=== PATIENT | male | born 1940 | race Caucasian/White ===

== ENCOUNTER 2016-09-12 04:55 | Inpatient (IN) | payer OTHER, MEDICARE ==
--- NOTE | 2016-09-12 05:06 | PDOC ---
History of Present Illness - General Chief Complaint: Shortness of Breath Stated Complaint: SOB Time Seen by Provider: 09/12/16 05:03 - History of Present Illness Initial Comments: 09/12/16 05:40 This 76-year-old man with a history of COPD, pericardial effusion and sleep apnea arrives by ambulance with a one-day history of progressive shortness of breath. Patient states that earlier in the day he developed a runny nose, subjective fever and mild nonproductive cough. He denies wheezing or shortness of breath earlier in the day. After the patient went to bed tonight, he found that he became increasingly short of breath. When he found that using his home oxygen did not help his symptoms, he called EMS. Patient was given Duoneb treatment during transport which patient states improved his dyspnea The patient denies chest pain, abdominal pain, increase in lower extremity edema or leg pain.there has been no recent vomiting or diarrhea. Although the patient's medical record lists furosemide and metoprolol as medications, the patient states that he only takes his Advair on a daily basis. Patient generally lives with his son but his son is currently on vacation and the patient is alone at home. Patient denies smoking currently; he states that he "smoked a lot" in the past but quit 20 years ago Past History - Past Medical History Allergies/Adverse Reactions: Allergies Allergy/AdvReac Type Severity Reaction Status Date / Time No Known Allergies Allergy Verified 11/26/15 18:08 Home Medications: Ambulatory Orders Fluticasone/Salmeterol [Advair 250-50 Diskus] 1 each IH BID 09/12/16 Asthma: Yes COPD: Yes - Psycho/Social/Smoking Cessation Hx Anxiety: No Suicidal Ideation: No Smoking History: Current some day smoker Have you smoked in the past 12 months: Yes Number of Cigarettes Smoked Daily: 1 'Breaking Loose' booklet given: 11/26/15 Hx Alcohol Use: Yes (Social) Drug/Substance Use Hx: No Substance Use Type: None Hx Substance Use Treatment: No Review of Systems - Review of Systems Able to Perform ROS?: Yes Comments:: 12 point review of systems is negative except for what is noted in the history of present illness *Physical Exam - Physical Exam Comments: vital signs: Temp 98.3F orally, bp 115/59, HR111, O2 sat on 3l/min 96% GENERAL: The patient is awake, alert, and fully oriented HEAD: Normal with no signs of trauma. EYES: Pupils equal, round and reactive to light, extraocular movements intact, sclera anicteric, conjunctiva clear with no pallor. ENT: dry mucous membranes. Ears normal, nares patent with crusting, oropharynx clear without exudates. NECK: Normal range of motion, supple without lymphadenopathy, JVD, or masses. LUNGS: Breath sounds equal, clear to auscultation bilaterally. No wheeze/ crackles HEART: Regular rate and rhythm, normal S1 and S2 without murmur or rub. ABDOMEN: Soft/nontender/distended. BS wnl. No guarding or rebound. No hepatosplenomegaly. EXTREMITIES: Normal range of motion, 1+ edema bilateral ankles. No clubbing or cyanosis. No cords, erythema, or tenderness. NEUROLOGICAL: Cranial nerves II through XII grossly intact. Normal speech; moving all 4 extremities equally PSYCH: Normal mood, normal affect. SKIN: Warm, Dry, normal turgor, no rashes or lesions noted. ED Treatment Course - LABORATORY CBC & Chemistry Diagram: 09/12/16 05:41 09/12/16 05:41 Progress Note - Progress Note Progress Note: twelve-lead electrocardiogram is performed. This shows sinus tachycardia at 115 bpm; there are frequent PACs. Nonspecific ST/T-wave abnormalities. [place] and intervals are normal. There are no previous EKG tracings to compare to. portable chest x-ray: Limited study. Right pleural effusion and bilateral basilar markings similar to chest x-ray dated 06/19/16. Subsequent chest CT confirmed small right pleural effusion with multiple small pulmonary nodules Medical Decision Making - Medical Decision Making 09/12/16 06:31 EKG tracing performed here from 09/13/13 located:Normal sinus rhythm at 79 bpm; no ST or T-wave abnormalities present 09/12/16 06:39 Solu-Medrol 80 mg IV given patient denies shortness of breath but repeat auscultation reveals scattered expiratory wheezing. We'll administer DuoNeb treatment now. CBC notable for white blood cell count of 19,100 with predominance of neutrophils Chemistry profile shows normal electrolytes. BUN is 18 with creatinine of 1.0 Calcium is 8.1. cardiac enzymes are not elevated *DC/Admit/Observation/Transfer Diagnosis at time of Disposition: COPD with acute exacerbation - Discharge Dispostion Condition at time of disposition: Stable Admit: Yes
[2016-09-12] MEDS ORDERED: methylPREDNISolone NA SUCC 125 MG/2 ML VIAL ONE (06:02)
[2016-09-12] MEDS ORDERED: methylPREDNISolone NA SUCC 40 MG/1 ML VIAL IVPB ONE (06:02)
[2016-09-12 06:25] LABS: BASOPHIL 0.2 % (0-2.0); MCH 28.8 pg (25.7-33.7); MEAN CELL VOLUME 87.2 fl (80-96); NEUTROPHILS 90.5 % (42.8-82.8); PLATELET COUNT 240 K/MM3 (134-434); RDW 13.3 % (11.9-15.9); WHITE BLOOD COUNT 19.1 K/mm3 (4.0-10.0)
[2016-09-12 06:27] LABS: INR 1.2 (0.82-1.09); PROTHROMBIN TIME (PATIENT) 13.2 SEC (9.98-11.88)
[2016-09-12 06:37] LABS: ALBUMIN 3.8 g/dl (3.4-5.0); ANION GAP 10 (8-16); BILIRUBIN,TOTAL 0.4 mg/dL (0.2-1.0); CALCIUM 8.1 mg/dL (8.5-10.1); CO2 29 mmol/L (21-32); GLUCOSE,RANDOM 160 mg/dL (74-106); SGOT/AST 48 U/L (15-37); SGPT/ALT 71 U/L (12-78); TOT PROT 6.8 g/dl (6.4-8.2)
[2016-09-12 06:39] LABS: ALK PHOS 91 U/L (45-117)
[2016-09-12] MEDS ORDERED: ALBUTEROL SO4 2.5/IPRATROPIUM 0.5 INH SOL 3 ML VIAL.NEB. NEB ONE (06:40)
[2016-09-12 06:41] LABS: TROPONIN I < 0.02 ng/ml (0.00-0.05)
[2016-09-12] MEDS ORDERED: IPRATROPIUM BR 0.02% 0.5 MG/2.5 ML VIAL.NEB. NEB ONE (06:52)
[2016-09-12] MEDS ORDERED: ALBUTEROL SO4 0.083% IH SOL 2.5 MG/3 ML VIAL.NEB. NEB ONE (06:52)
[2016-09-12 08:02] LABS: MAGNESIUM 1.7 mg/dL (1.8-2.4)
[2016-09-12] MEDS ORDERED: MAGNESIUM SULFATE 2 GM in SODIUM CHLORIDE 100 ML IVPB ONE (08:04)
--- NOTE | 2016-09-12 08:10 | HP ---
[id number] a 76 y/o male with a past medical history of copd and pericardial effusion s/p pericardiocentesis (12/07). Patient is a poor historian, unsure of his medications or past medical diagnosis. patient reports with ongoing cough for the past week, denies any fevers. he reports developing shortness of breath last evening and worsened throughout the night and dyspnea on exertion. patient also reports swelling to lower extremities within the past month. As a result patient contacted EMS to seek evaluation in the emergency department. ER course was notable for: (1) WBC 19 (2)chest x-ray right pleural effusion noted (3) EKG, sinus tachycardia Recent Travel: none Social History: resides at home alone Smoking: quit 20 years ago, reports he smoked "alot" Alcohol: none Drugs: none Family History: non-contributory Allergies No Known Allergies Allergy (Verified 11/26/15 18:08) HOME MEDICATIONS: Medication Instructions Recorded Fluticasone/Salmeterol [Advair 1 each IH BID 09/12/16 250-50 Diskus] REVIEW OF SYSTEMS CONSTITUTIONAL: Absent: fever, chills, diaphoresis, generalized weakness, malaise, loss of appetite, weight change HEENT: Absent: rhinorrhea, nasal congestion, throat pain, throat swelling, difficulty swallowing, mouth swelling, ear pain, eye pain, visual changes CARDIOVASCULAR: Absent: chest pain, syncope, palpitations, irregular heart rate, lightheadedness , peripheral edema RESPIRATORY: Present: cough, shortness of breath, dyspnea with exertion Absent: orthopnea, wheezing, stridor, hemoptysis GASTROINTESTINAL: Absent: abdominal pain, abdominal distension, nausea, vomiting, diarrhea, constipation, melena, hematochezia GENITOURINARY: Absent: dysuria, frequency, urgency, hesitancy, hematuria, flank pain, genital pain MUSCULOSKELETAL: Present: lower extremity swelling Absent: myalgia, arthralgia, joint swelling, back pain, neck pain SKIN: Absent: rash, itching, pallor HEMATOLOGIC/IMMUNOLOGIC: Absent: easy bleeding, easy bruising, lymphadenopathy, frequent infections ENDOCRINE: Absent: unexplained weight gain, unexplained weight loss, heat intolerance, cold intolerance NEUROLOGIC: Absent: headache, focal weakness or paresthesias, dizziness, unsteady gait, seizure, mental status changes, bladder or bowel incontinence PSYCHIATRIC: Absent: anxiety, depression, suicidal or homicidal ideation, hallucinations. PHYSICAL EXAMINATION Vital Signs - 24 hr 09/12/16 09/12/16 09/12/16 05:04 05:18 06:56 Temperature 98.3 F Pulse Rate 117 H 111 H Pulse Rate [ 110 H Apical] Respiratory 28 H 24 Rate Blood Pressure 115/59 Blood Pressure 102/55 [Left Arm] O2 Sat by Pulse 96 96 99 Oximetry (%) PHYSICAL EXAM GENERAL: Awake, alert, and fully oriented, in no acute distress. HEAD: Normal with no signs of trauma. EYES: Pupils equal, round and reactive to light, extraocular movements intact, sclera anicteric, conjunctiva clear. No lid lag. EARS, NOSE, THROAT: Ears normal, nares patent, oropharynx clear without exudates. Moist mucous membranes. NECK: Normal range of motion, supple without lymphadenopathy, JVD, or masses. LUNGS: Breath sounds equal, wheeze noted to right apex and base, clear to left apex and base, diminished billaterally throughout, No wheezes, and no crackles. No accessory muscle use. HEART: Regular rate and rhythm, normal S1 and S2 without murmur, rub or gallop.+ JVD ABDOMEN: Soft, obese nontender, not distended, normoactive bowel sounds, no guarding, no rebound, no masses. No hepatomegaly or splenomegaly. MUSCULOSKELETAL: Normal range of motion at all joints. No bony deformities or tenderness. No CVA tenderness. UPPER EXTREMITIES: 2+ pulses, warm, well-perfused. No cyanosis. No clubbing. Cap refill <2 seconds. + 1 billateral lower extremity edema. LOWER EXTREMITIES: 2+ pulses, warm, well-perfused. No calf tenderness. No peripheral edema. NEUROLOGICAL: Cranial nerves II-XII intact. Normal speech. Normal gait. PSYCHIATRIC: Cooperative. Good eye contact. Appropriate mood and affect. SKIN: Warm, dry, normal turgor, no rashes or lesions noted. Laboratory Results - last 24 hr 09/12/16 09/12/16 09/12/16 05:41 05:41 05:41 WBC 19.1 H D RBC 5.02 Hgb 14.5 D Hct 43.8 MCV 87.2 MCHC 33.0 RDW 13.3 Plt Count 240 D MPV 9.0 Neutrophils % 90.5 H D Lymphocytes % 3.4 L D Monocytes % 5.9 Eosinophils % 0.0 D Basophils % 0.2 INR Sodium 140 Potassium 3.9 Chloride 101 Carbon Dioxide 29 D Anion Gap 10 BUN 18 D Creatinine 1.0 D Creat Clearance w eGFR > 60 Random Glucose 160 H D Calcium 8.1 L Magnesium Total Bilirubin 0.4 D AST 48 H D ALT 71 Alkaline Phosphatase 91 Creatine Kinase Cancelled Creatine Kinase Index CK-MB (CK-2) CK-MB (CK-2) Rel Index Troponin I Cancelled Total Protein 6.8 Albumin 3.8 D 09/12/16 09/12/16 09/12/16 05:41 05:50 05:50 WBC RBC Hgb Hct MCV MCHC RDW Plt Count MPV Neutrophils % Lymphocytes % Monocytes % Eosinophils % Basophils % INR 1.20 H Sodium Potassium Chloride Carbon Dioxide Anion Gap BUN Creatinine Creat Clearance w eGFR Random Glucose Calcium Magnesium Total Bilirubin AST ALT Alkaline Phosphatase Creatine Kinase 249 Creatine Kinase Index 1.5 CK-MB (CK-2) 3.719 H CK-MB (CK-2) Rel Index Cancelled Troponin I < 0.02 Total Protein Albumin 09/12/16 07:27 WBC RBC Hgb Hct MCV MCHC RDW Plt Count MPV Neutrophils % Lymphocytes % Monocytes % Eosinophils % Basophils % INR Sodium Potassium Chloride Carbon Dioxide Anion Gap BUN Creatinine Creat Clearance w eGFR Random Glucose Calcium Magnesium 1.7 L D Total Bilirubin AST ALT Alkaline Phosphatase Creatine Kinase Creatine Kinase Index CK-MB (CK-2) CK-MB (CK-2) Rel Index Troponin I Total Protein Albumin ASSESSMENT/PLAN: 1) pulm: copd excerbation - start solumedrol 40mg q6h with taper - start symbicort - combivent nebulizers pleural effusion - CTA of chest, right small to moderate pleural effusion, cannot rule out superimposed infiltrate - start zithromax and rocephin - appreciate pulmonary input 2) card - pmh of pericardial effusion, s/p pericardiocentesis, March 2016. - signs of fluid overload noted on exam, will hold off on lasix until results of echo obtained 3) ID: - leukocytosis noted, patient afebrile, CTA of chest reviewed, agree with ID continue Zithromax and Rocephin empirically - ID consulted and following F/E/N -low sodium diet ppx - zantac - lovenox - oob - scd - pt dispo: requires inpatient telemetry full code Problem List - Problem (1) COPD exacerbation Code(s): J44.1 - CHRONIC OBSTRUCTIVE PULMONARY DISEASE W (ACUTE) EXACERBATION (2) Pleural effusion Code(s): J90 - PLEURAL EFFUSION, NOT ELSEWHERE CLASSIFIED Visit type - Emergency Visit Emergency Visit: Yes ED Registration Date: 09/12/16 Care time: The patient presented to the Emergency Department on the above date and was hospitalized for further evaluation of their emergent condition. - New Patient This patient is new to me today: Yes Date on this admission: 09/12/16 - Critical Care Critical Care patient: No
[2016-09-12] MEDS ORDERED: MAGNESIUM SULF 50% (8.12 MEQ/2 ML-1 GM VIAL) IVPB ONE (08:30)
[2016-09-12 08:51] LABS: PH,URINE 5.5 (4.5-8); URINE APPEARANCE Cloudy; URINE BILIRUBIN 2+ (NEGATIVE); URINE BLOOD Negative (NEGATIVE); URINE COLOR YELLOW; URINE GLUCOSE (UA) Negative (NEGATIVE); URINE KETONE Negative (NEGATIVE); URINE LEUK ESTERASE Negative (NEGATIVE); URINE NITRITE Negative (NEGATIVE); URINE PROTEIN 2+ (NEGATIVE); URINE UROBILINOGEN 1.0 E.U/dl (0.2-1.0)
[2016-09-12 08:52] LABS: URINE BACTERIA FEW /hpf (NEGATIVE); URINE RBC 0-3 /hpf (0-3); URINE WBC 0-3 (3-5)
[2016-09-12] MEDS ORDERED: methylPREDNISolone NA SUCC 40 MG/1 ML VIAL ONE (09:25)
[2016-09-12] MEDS: methylPREDNISolone NA SUCC 40 MG/1 ML VIAL IVPB SCH ×3 (09:31→21:12)
--- NOTE | 2016-09-12 09:43 | PN ---
Progress Note (short form) - Note Progress Note: ID Consult dictated Exacerbation COPD Leukocytosis Possible community acquired v. atypical pneumonia RLL possible influenza Obtain flu swab, sputum c/s, penumococcal/legionella ag empiric zithromax/ ceftriaxone IV steroids/ bronchodialators
[2016-09-12] MEDS ORDERED: AZITHROMYCIN 500 MG VIAL IVPB ONE (10:06)
[2016-09-12] MEDS: CEFTRIAXONE 100 ML IVPB SCH (10:11)
[2016-09-12 10:38] LABS: ARTERIAL BLD GAS O2 SATURATION 91.7 % (90-98.9); ARTERIAL BLOOD GAS BASE EXCESS 0.1 meq/l (-2-2); ARTERIAL BLOOD GAS HCO3 26.7 meq/L (22-26); ARTERIAL BLOOD GAS PO2 69.5 mmHg (70-100)
[2016-09-12 10:39] LABS: ALLENS TEST POSITIVE; ART PUNCT SITE LEFT RADIAL; LPM/O2% 21%; TYPE OF O2 ROOM AIR
[2016-09-12 10:40] LABS: ARTERIAL BLOOD GAS pH 7.32 (7.35-7.45); PT. ON O2? NO
[2016-09-12] MEDS: AZITHROMYCIN IVPB 250 ML IVPB SCH (10:58)
--- NOTE | 2016-09-12 10:58 | EKG ---
Test Reason : Blood Pressure : / mmHG Vent. Rate : 115 BPM Atrial Rate : 115 BPM P-R Int : 116 ms QRS Dur : 082 ms QT Int : 342 ms P-R-T Axes : 084 -12 093 degrees QTc Int : 473 ms SINUS TACHYCARDIA WITH ATRIAL PREMATURE CONTRACTIONS NONSPECIFIC ST ABNORMALITY ABNORMAL ECG NO PREVIOUS ECGS AVAILABLE Confirmed by CYNDI CHAMBERLAIN, JERILYN ([id number]) on 09/12/2016 10:57:37 AM Referred By: DR SNYDER Confirmed By:JERILYN HANNA MD
--- NOTE | 2016-09-12 11:26 | CON.PULM ---
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 Patient states that earlier in the day he developed a runny nose, subjective fever and mild nonproductive cough. He denies wheezing or shortness of breath earlier in the day. After the patient went to bed tonight , he found that he became increasingly short of breath. When he found that using his home oxygen did not help his symptoms, he called EMS. Patient was given Duoneb treatment during transport which patient states improved his dyspnea The patient denies chest pain, abdominal pain, increase in lower extremity edema or leg pain.there has been no recent vomiting or diarrhea. Although the patient's medical record lists furosemide and metoprolol as medications, the patient states that he only takes his Advair on a daily basis. - History Source History Provided By: Patient, Medical Record Limitations to Obtaining History: Poor Historian - Past Medical History IMPROVEMENT LEADER: No: Alzheimer's Cardio/Vascular: Yes: Other (Pericardial effusion). No: AFIB Pulmonary: Yes: COPD. No: Cancer Gastrointestinal: No: Ascites Hepatobiliary: No: Cirrhosis Renal/: No: Renal Failure Heme/Onc: No: Anemia Infectious Disease: No: AIDS Psych: No: Addictions Musculoskeletal: Yes: Bursitis, Chronic low back pain Rheumatology: No: Fibromyalgia Endocrine: No: Diabetes Mellitus - Past Surgical History Past Surgical History: Yes: None - Alcohol/Substance Use Hx Alcohol Use: Yes (Social) History of Substance Use: reports: None - Smoking History Smoking history: Former smoker Have you smoked in the past 12 months: Yes Aproximately how many cigarettes per day: 1 - Social History ADL: Independent 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 History of Recent Travel: No Home Medications - Allergies Allergies/Adverse Reactions: Allergies Allergy/AdvReac Type Severity Reaction Status Date / Time No Known Allergies Allergy Verified 11/26/15 18:08 - Home Medications Home Medications: Ambulatory Orders Fluticasone/Salmeterol [Advair 250-50 Diskus] 1 each IH BID 09/12/16 Family Disease History - Family Disease History Family History: Unremarkable Review of Systems - Review of Systems Constitutional: denies: Fever Eyes: denies: Blurred Vision HENT: denies: Difficult Swallowing Neck: denies: Decreased ROM Cardiovascular: reports: Shortness of Breath. denies: Chest Pain Respiratory: reports: Cough, SOB on Exertion. denies: Hemoptysis, Wheezing Gastrointestinal: reports: Other (increasing abd girth) Genitourinary: reports: No Symptoms Breasts: reports: No Symptoms Reported Musculoskeletal: reports: Back Pain, Other (lower ext edema) Integumentary: reports: No Symptoms Neurological: reports: No Symptoms Endocrine: reports: No Symptoms Hematology/Lymphatic: reports: No Symptoms Physical Exam Vital Sings: Vital Signs Temperature 98.3 F 09/12/16 05:04 Pulse Rate 103 H 09/12/16 08:37 Respiratory Rate 28 H 09/12/16 08:37 Blood Pressure 113/67 09/12/16 08:37 O2 Sat by Pulse Oximetry (%) 96 09/12/16 08:37 Constitutional: Yes: Calm Eyes: Yes: EOM Intact HENT: Yes: Normocephalic Neck: Yes: Trachea Midline Cardiovascular: Yes: Regular Rate and Rhythm, S1, S2 Respiratory: Yes: Dullness (with diminished breath sounds right base) ...Clubbing: No Gastrointestinal: Yes: Normal Bowel Sounds, Abdomen, Obese Renal/: Yes: WNL Breast(s): Yes: WNL Musculoskeletal: Yes: WNL Edema: LLE: 2+, RLE: 2+ Neurological: Yes: Alert Psychiatric: Yes: Alert Labs: ABG Results ABG pH 7.32 (7.35-7.45) L D 09/12/16 09:30 ABG pCO2 at Pt Temp 53.1 mmHg (35-45) H D 09/12/16 09:30 ABG pO2 at Pt Temp 69.5 mmHg (70-100) L D 09/12/16 09:30 ABG HCO3 26.7 meq/L (22-26) H 09/12/16 09:30 ABG O2 Sat (Measured) 91.7 % (90-98.9) 09/12/16 09:30 ABG O2 Content 18.3 % vol (15-22) 09/12/16 09:30 ABG Base Excess 0.1 meq/l (-2-2) 09/12/16 09:30 rest reviewed Imaging - Results Chest X-ray: Image Reviewed Cat Scan: Image Reviewed EKG: Report Reviewed Problem List - Problems (1) COPD with acute exacerbation Code(s): J44.1 - CHRONIC OBSTRUCTIVE PULMONARY DISEASE W (ACUTE) EXACERBATION (2) Leukocytosis Code(s): D72.829 - ELEVATED WHITE BLOOD CELL COUNT, UNSPECIFIED (3) Obesity Code(s): E66.9 - OBESITY, UNSPECIFIED Qualifiers: Obesity severity: morbid (4) Pericardial effusion Code(s): I31.3 - PERICARDIAL EFFUSION (NONINFLAMMATORY) (5) Pleural effusion Code(s): J90 - PLEURAL EFFUSION, NOT ELSEWHERE CLASSIFIED Assessment/Plan FAVOR A/E COPD NO EVIDENCE TO SUGGEST PNEUMONIA MORE LIKELY URI(INITIAL INFLU SWAB --) RIGHT PLEURAL EFFUSION APPEARS CHRONIC (NO THORACENTESIS RECORDED) H/O PERICARDIAL EFFUSION IN PAST WORKUP WAS NEGATIVE AGREE WITH BRONCHODILATORS/O2 SUPPLEMENTATION/STEROIDS/ANTIBIOTICS AWAIT ECHO AND CARDIO INPUT MAY CONSIDER THORACENTESIS WILL FOLLOW Zita FAY MD
[2016-09-12 12:11] VITALS: BMI 37.5
--- NOTE | 2016-09-12 12:15 | CONS ---
DATE OF CONSULTATION: 09/12/2016 TIME OF CONSULTATION: 10:30 a.m. CONSULTATION REQUESTED BY: TONI. CHIEF COMPLAINT: Increasing shortness of breath. HISTORY OF PRESENT ILLNESS: Patient is a 76-year-old [place] gentleman with history of chronic obstructive pulmonary disease, previous history of pericardial effusion requiring pericardial window, cause of effusion apparently was not clearly determined. He was admitted with history of anuria accompanied by a cough and increasing dyspnea and prior to admission patient was experiencing severe shortness of breath and was unable to lie in bed. He denies having chest pain or discomfort either at rest or with exertion, history of both orthopnea and PND. He is unaware of having pedal edema. There is no history of palpitations, lightheadedness, dizziness, presyncope, or syncope. Denies having hypertension, diabetes mellitus, or history of a heart murmur. Patient lives alone and admits to poor dietary compliance. On questioning, he states that he is aware that he snores and has increased somnolence during the daytime accompanied by fatigue. PAST HISTORY: As mentioned in the history of present illness. SOCIAL HISTORY: He is a . Is retired. Has 2 children, a son and a daughter, who apparently are healthy. Used to be a 1-1/2-pack cigarette smoker since the age of 21 and stopped approximately 2 years ago. No history of alcohol abuse or drug use. Denies excessive use of caffeine. FAMILY HISTORY: Father in his 70s of unknown cause. Mother in her 80s apparently of an unknown cause. Had 2 brothers. One of them had emphysema. The other brother had also lung problem; causes are not known. Both of them are . ALLERGIES: None documented. MEDICATION: Prior to admission, patient says he was only on Advair. REVIEW OF SYSTEMS: Constitutional: No history of chills, fever, or night sweats. No history of unintentional weight loss. HEENT: Denies having headaches, diplopia, blurred vision. No history of epistaxis, hoarseness, tinnitus, or deafness reported. Cardiovascular: See history of present illness. No history of rheumatic fever as a child. Respiratory: See history of present illness. Cough is accompanied by clear expectoration. No history of hemoptysis or tuberculosis. Gastrointestinal: No history of nausea, vomiting, melena, or hematemesis. No history of abdominal discomfort or change in bowel habits. Neurological: Denies having lightheadedness, dizziness, syncope, or seizures. No history of focal weakness. Endocrine: No history of polyuria or polydipsia. Denies intolerance to cold or warm weather. Genitourinary: History of increased frequency and nocturia. No history of hematuria or dysuria reported. Hematological/Lymphatic: No history of anemia or lymph node enlargement. Musculoskeletal: Denies having myalgias or arthralgias. PHYSICAL EXAMINATION:General: A 76-year-old morbidly obese gentleman, was mildly dyspneic, no pallor, cyanosis, clubbing, or jaundice. Vital Signs: Weight was not recorded, blood pressure was 113/67 mmHg, pulse 103 beats per minute and regular, temperature was not available, oxygen saturation was 96% on nasal cannula at 2%. Neck: Supple. No jugular venous distention appreciated. Hepatojugular reflux was negative. Carotids were 2+. Upstrokes were normal. No bruits were heard and no thyromegaly was present. Heart: PMI was not localized. No heaves or thrills. Heart sounds were distant. No murmur or gallops were appreciated. Lungs: Fine crepitations at the right base and decreased breath sounds. Abdomen: Markedly obese, nontender, no hepatosplenomegaly was appreciated, no palpable masses were felt. Bowel sounds were heard. No bruits were appreciated. Extremities: There was 2 to 3+ pitting edema involving the right lower extremity and 1 to 2+ pitting edema involving the left lower extremity. Dorsalis pedis and posterior tibial pulses were weak. LABORATORY DATA: CBC: WBC count was 19,100 with a left shift. Hemoglobin was 14.5 g/dL. Sodium was 140, potassium 3.9, chloride 101, CO2 29 mmole/L, BUN 18, creatinine 1.0. Random glucose 160, calcium 8.1, magnesium 1.7. CK was 249. Troponin was less than 0.02. BNP was elevated at 313. CTA of the chest. Impression: Small to moderate right pleural effusion with compressive atelectatic changes in the right lung base. Cannot rule out superimposed pneumonia. There is no evidence of pulmonary embolus in the main pulmonary artery and its proximal bifurcation bilaterally. No enlarged mediastinal or hilar lymph nodes are identified. Fatty liver. ECG was not available. IMPRESSION: 1. History of chronic obstructive pulmonary disease with probable exacerbation secondary to upper respiratory tract infection. 2. Dyspnea, etiology: a. Secondary to congestive heart failure (right heart failure). b. Secondary to number 1. c. Rule out pneumonia. 3. Morbid obesity. 4. Status post pericardial effusion, status post pericardial window (November 2015). 5. Obstructive sleep apnea syndrome needs exclusion because of history of increased somnolence and easy fatigability. 6. Poor compliance. 7. Leukocytosis and left shift secondary to upper respiratory tract infection. 8. Poor compliance. RECOMMENDATIONS: 1. Echocardiogram is pending. 2. CTA report was reviewed. No pericardial effusion was reported. 3. Diuretics if echocardiogram reveals no pericardial effusion. 4. T3, T4, TSH. 5. Risk modification. 6. ECG. PROGNOSIS: Guarded. Thank you for your referral. Yours sincerely, PHU FLORES M.D. [id number]
[2016-09-12] MEDS: BUDESONIDE/FORMETEROL FUMARATE 160/4.5 mcg INHALER IH SCH ×2 (12:28→21:12)
--- NOTE | 2016-09-12 13:03 | CONS ---
DATE OF CONSULTATION: 09/12/2016 HISTORY OF PRESENT ILLNESS: The patient is a 76-year-old male with history of COPD, obstructive sleep apnea, obesity, evaluated for pneumonia. He reports worsening cough over the past 1 week. He developed increasing shortness of breath and lower extremity edema over the past 1-2 days. He presented to the emergency room where a chest x-ray showed a right pleural effusion, possible infiltrate. CT scan of the chest shows compressive atelectasis, possible infiltrate right base with a small pleural effusion. Patient reports cough productive of whitish sputum. He denies any hemoptysis. No complaints of chest pain. He denies any associated fevers or chills. Patient lives alone. He denies any ill contacts. He is a nonsmoker, has not received influenza vaccine. His last hospitalization was in November of 2015 for a cardiac tamponade. PAST MEDICAL HISTORY: Positive for COPD (he is not steroid-dependent), obstructive sleep apnea, morbid obesity, history of cardiac tamponade. PAST SURGICAL HISTORY: Status post pericardial window November of 2015; cultures of the pericardial fluid were negative. ALLERGIES: No known allergies. MEDICATIONS: Symbicort, Solu-Medrol. SOCIAL HISTORY: He lives alone, is a nonsmoker/nondrinker. SYSTEMS REVIEW: Neurologic: No loss of consciousness, seizure activity, or focal weakness. Cardiac: Negative for chest pain or palpitations. Respiratory: As per HPI. Gastrointestinal: Negative for vomiting or diarrhea. Genitourinary: Negative for urinary tract infection. LABORATORY DATA: White count 19.1, 90 neutrophils, 3 lymphocytes, 5 monocytes, hematocrit 43.8, platelet count 240. BUN 18, creatinine 1.0. Urinalysis 0-3 white cells. PHYSICAL EXAMINATION: General: He is is awake. He is slightly short of breath at rest on nasal cannula, morbidly obese. Vital signs: Temperature 98.3, blood pressure 113/67, pulse 103 and regular, respirations 26 per minute. HEENT: Sclerae anicteric. Dry mucous membranes. Heart: Heart sounds S1, S2. Lungs: Diminished breath sounds bilaterally. Abdomen: Obese, soft. No tenderness elicited. No mass, rebound, or rigidity. Extremities: 1+ edema. IMPRESSION: 1. Exacerbation of chronic obstructive pulmonary disease. 2. Leukocytosis, possible sepsis. 3. Possible community-acquired versus atypical right lower-lobe pneumonia. 4. Possible influenza. Obtain rapid flu antigen, sputum culture, urine legionella, and pneumococcal antigens, empiric Zithromax and ceftriaxone, intravenous steroids, inhaled bronchodilators. Thank you for the kind referral. JERILYN MCDUFFIE M.D. [id number]
[2016-09-12] MEDS: ALBUTEROL SO4 2.5/IPRATROPIUM 0.5 INH SOL 3 ML VIAL.NEB. NEB PRN (15:56)
[2016-09-12] MEDS ORDERED: PT OWN MED DRAWER 7, Y5N ONE (21:09)
[2016-09-13] MEDS: methylPREDNISolone NA SUCC 40 MG/1 ML VIAL IVPB SCH ×3 (03:12→17:45)
--- NOTE | 2016-09-13 08:29 | PN ---
Progress Note, Physician History of Present Illness: Awake, alert No complaints Denies chest pain/ dyspnea/cough Afebrile - Current Medication List Current Medications: Active Medications Albuterol/Ipratropium (Duoneb -) 1 amp NEB Q6H PRN PRN Reason: SHORT OF BREATH/WHEEZING Last Admin: 09/12/16 15:56 Dose: 1 amp Budesonide/Formoterol Fumarate (Symbicort 160/4.5mcg -) 1 puff IH BID [facility] Last Admin: 09/12/16 21:12 Dose: 1 puff Azithromycin (Zithromax 500mg Ivpb (Pre-Docked)) 250 mls @ 250 mls/hr IVPB Q24H [facility] Last Admin: 09/12/16 10:58 Dose: 250 mls/hr Ceftriaxone Sodium (Rocephin 2gm Ivpb (Pre-Docked)) 100 mls @ 200 mls/hr IVPB DAILY [facility] Last Admin: 09/12/16 10:11 Dose: 200 mls/hr Methylprednisolone Sodium Succinate (Solu-Medrol -) 40 mg IVPB Q6H-IV [facility] Last Admin: 09/13/16 03:12 Dose: 40 mg - Objective Vital Signs: Vital Signs Temperature 97.9 F 09/13/16 06:00 Pulse Rate 96 H 09/13/16 06:00 Respiratory Rate 19 09/13/16 06:00 Blood Pressure 118/70 09/13/16 06:00 O2 Sat by Pulse Oximetry (%) 96 09/13/16 06:04 Constitutional: Yes: Obese Cardiovascular: Yes: Regular Rate and Rhythm, S1, S2 Respiratory: Yes: CTA Bilaterally Gastrointestinal: Yes: Normal Bowel Sounds, Soft, Abdomen, Obese, Tenderness Labs: INR, PTT INR 1.20 (0.82-1.09) H 09/12/16 05:41 Assessment/Plan Exacerbation COPD Possible RLL pneumonia Possible viral syndrome Await c/s Continue empiric ceftriaxone/ zithromax
[2016-09-13] MEDS ORDERED: PT OWN MED DRAWER 7, Y5N ONE (09:46)
[2016-09-13] MEDS ORDERED: REFRIGERATED ANITBIOTICS ONE (09:50)
[2016-09-13] MEDS: CEFTRIAXONE 100 ML IVPB SCH (09:56)
[2016-09-13] MEDS: BUDESONIDE/FORMETEROL FUMARATE 160/4.5 mcg INHALER IH SCH ×2 (09:57→21:30)
[2016-09-13] MEDS: AZITHROMYCIN IVPB 250 ML IVPB SCH (09:57)
[2016-09-13 10:25] LABS: MCH 28.4 pg (25.7-33.7); MCHC 32.9 g/dl (32.0-35.9); MEAN CELL VOLUME 86.5 fl (80-96); MEAN PLT VOLUME 8.5 fl (7.5-11.1); PLATELET COUNT 249 K/MM3 (134-434); RDW 12.6 % (11.9-15.9); WHITE BLOOD COUNT 20.2 K/mm3 (4.0-10.0)
--- NOTE | 2016-09-13 11:10 | PN ---
Progress Note, Physician History of Present Illness: PULMONARY ALERT,SITTING UP IN BED,LESS DYSPNEIC,+COUGH,-CP - Current Medication List Current Medications: Active Medications Albuterol/Ipratropium (Duoneb -) 1 amp NEB Q6H PRN PRN Reason: SHORT OF BREATH/WHEEZING Last Admin: 09/12/16 15:56 Dose: 1 amp Budesonide/Formoterol Fumarate (Symbicort 160/4.5mcg -) 1 puff IH BID [facility] Last Admin: 09/13/16 09:57 Dose: 1 puff Azithromycin (Zithromax 500mg Ivpb (Pre-Docked)) 250 mls @ 250 mls/hr IVPB Q24H [facility] Last Admin: 09/13/16 09:57 Dose: 250 mls/hr Ceftriaxone Sodium (Rocephin 2gm Ivpb (Pre-Docked)) 100 mls @ 200 mls/hr IVPB DAILY [facility] Last Admin: 09/13/16 09:56 Dose: 200 mls/hr Methylprednisolone Sodium Succinate (Solu-Medrol -) 40 mg IVPB Q6H-IV [facility] Last Admin: 09/13/16 09:30 Dose: 40 mg - Objective Vital Signs: Vital Signs Temperature 97.9 F 09/13/16 06:00 Pulse Rate 96 H 09/13/16 06:00 Respiratory Rate 19 09/13/16 08:35 Blood Pressure 118/70 09/13/16 06:00 O2 Sat by Pulse Oximetry (%) 96 09/13/16 08:35 Constitutional: Yes: Well Nourished, Calm Eyes: Yes: WNL HENT: Yes: WNL Neck: Yes: WNL Cardiovascular: Yes: Regular Rate and Rhythm, S1, S2 Respiratory: Yes: Diminished Gastrointestinal: Yes: Normal Bowel Sounds, Soft Extremities: Yes: WNL Edema: No Labs: CBC, BMP 09/13/16 10:00 INR, PTT INR 1.20 (0.82-1.09) H 09/12/16 05:41 Assessment/Plan Problem List - Problems (1) COPD with acute exacerbation Code(s): J44.1 - CHRONIC OBSTRUCTIVE PULMONARY DISEASE W (ACUTE) EXACERBATION (2) Leukocytosis Code(s): D72.829 - ELEVATED WHITE BLOOD CELL COUNT, UNSPECIFIED (3) Obesity Code(s): E66.9 - OBESITY, UNSPECIFIED Qualifiers: Obesity severity: morbid (4) Pericardial effusion Code(s): I31.3 - PERICARDIAL EFFUSION (NONINFLAMMATORY) (5) Pleural effusion Code(s): J90 - PLEURAL EFFUSION, NOT ELSEWHERE CLASSIFIED Assessment/Plan COPD EXACERBATION H/O PERICARDIAL EFFUSION S/P WINDOW SMALL R PLEURAL EFFUSION PLAN INHALED BRONCHODILATORS O2 SUPPLEMENTATION STEROIDS ANTIBIOTICS PER STEVEN HOLMAN
[2016-09-13 11:11] LABS: CALCIUM 8.8 mg/dl (8.4-10.2); CREATININE 0.8 mg/dl (0.6-1.3); MAGNESIUM 2.5 mg/dL (1.8-2.4)
--- NOTE | 2016-09-13 11:24 | PN ---
Physical Exam: SUBJECTIVE: Patient seen and examined. This is a 76 year old male with a past medical history of COPD and pericardial effusion who was admitted for COPD exacerbation. He reports feeling much better than yesterday, but still with SOB when getting up and walking around. Denies chest pain, abdominal pain, N/V/D. OBJECTIVE: Vital Signs - 24 hr 3 09/12/16 09/12/16 09/12/16 11:57 14:37 17:43 Temperature 99 F 98.2 F 98.2 F Pulse Rate 80 81 88 Respiratory 22 18 22 Rate Blood Pressure 116/67 128/68 122/65 O2 Sat by Pulse Oximetry (%) 3 09/12/16 09/13/16 09/13/16 22:17 06:00 06:04 Temperature 98.2 F 97.9 F Pulse Rate 91 H 96 H Respiratory 19 19 Rate Blood Pressure 113/63 118/70 O2 Sat by Pulse 96 Oximetry (%) 3 09/13/16 08:35 Temperature Pulse Rate Respiratory 19 Rate Blood Pressure O2 Sat by Pulse 96 Oximetry (%) GENERAL: The patient is awake, alert, and fully oriented, in no acute distress. HEAD: Normal with no signs of trauma. EYES: PERRL, extraocular movements intact, sclera anicteric, conjunctiva clear. No ptosis. ENT: Ears normal, nares patent, oropharynx clear without exudates, moist mucous membranes. NECK: Trachea midline, full range of motion, supple. LUNGS: + wheezing bilaterally, diminished right base, no accessory muscle use. HEART: Regular rate and rhythm, S1, S2 without murmur, rub or gallop. ABDOMEN: Soft, nontender, nondistended, normoactive bowel sounds, no guarding, no rebound, no hepatosplenomegaly, no masses. EXTREMITIES: 2+ pulses, warm, well-perfused, tr edema B/L LE NEUROLOGICAL: Cranial nerves II through XII grossly intact. Normal speech, gait not observed. PSYCH: Normal mood, normal affect. SKIN: Warm, dry, normal turgor, no rashes or lesions noted Laboratory Results - last 24 hr 3 09/13/16 09/13/16 10:00 10:00 WBC 20.2 H D RBC 4.83 Hgb 13.7 Hct 41.8 MCV 86.5 MCHC 32.9 RDW 12.6 Plt Count 249 MPV 8.5 Neutrophils % Y Lymphocytes % Y Sodium 138 Potassium 4.9 Chloride 100 Carbon Dioxide 29 H Anion Gap 9 BUN 27 H D Creatinine 0.8 D Random Glucose 239 H D Calcium 8.8 Magnesium 2.5 H D Active Medications 3 Generic Name Dose Route Start Last Admin Trade Name Freq PRN Reason Stop Dose Admin Albuterol/Ipratropium 1 amp 09/12/16 08:33 09/12/16 15:56 Duoneb - NEB 1 amp Q6H PRN Administration SHORT OF BREATH/WHEEZING Budesonide/Formoterol Fumarate 1 puff 09/12/16 10:00 09/13/16 09:57 Symbicort 160/4.5mcg - IH 1 puff BID MAKSIM Administration Azithromycin 250 mls @ 250 mls/hr 09/12/16 10:00 09/13/16 09:57 Zithromax 500mg Ivpb (Pre-Docked) IVPB 250 mls/hr Q24H [facility] Administration Ceftriaxone Sodium 100 mls @ 200 mls/hr 09/12/16 10:00 09/13/16 09:56 Rocephin 2gm Ivpb (Pre-Docked) IVPB 200 mls/hr DAILY [facility] Administration Methylprednisolone Sodium Succinate 40 mg 09/12/16 09:00 09/13/16 09:30 Solu-Medrol - IVPB 40 mg Q6H-IV MAKSIM Administration ASSESSMENT/PLAN: 76yM with PMH COPD and pericardial effusion admitted for COPD exacerbation. COPD exacerbation - cont solumedrol; taper to q8h, BGM TID AC with Novolog SS while on solumedrol. - antibiotics ceftriaxone and zithromax as per ID - cont oxygen as needed. Cardio - h/o pericardial effusion, no evidence of tamponade on echo, but small almost circumferential echogenic area, may be remaining inflammatory debris from previous effusion. - + pleural effusion on CTA, no significant pericardial effusion on echo, will start lasix - cardiology consult appreciated. Leukocytosis - cont antibiotics as per ID DVT PPX - heparin 5000u TID FEN - defer IVF, tolerating PO - BMP pending for today. - low sodium diet as tolerated. Dispo: pt currently requires inpatient care. Visit type - Emergency Visit Emergency Visit: Yes ED Registration Date: 09/12/16 Care time: The patient presented to the Emergency Department on the above date and was hospitalized for further evaluation of their emergent condition. - New Patient This patient is new to me today: Yes Date on this admission: 09/13/16 - Critical Care Critical Care patient: No
[2016-09-13] MEDS: FUROSEMIDE 40 MG/4 ML INJECTABLE VIAL IVPUSH SCH (12:00)
[2016-09-13 12:16] LABS: PLATELET ESTIMATE NORMAL (NORMAL)
[2016-09-13] MEDS: HEPARIN NA (PORCINE) 5,000 UNITS/ML 1ML VIAL SQ SCH ×2 (13:00→21:16)
[2016-09-13] MEDS: INSULIN SLIDING SCALE (NOVOLOG) 1 VIAL SQ SCH (17:00)
[2016-09-13] MEDS ORDERED: INSULIN (NOVOLOG) ASPART 100 UNITS/ML 10ML VIAL ONE (17:36)
[2016-09-14] MEDS: methylPREDNISolone NA SUCC 40 MG/1 ML VIAL IVPB SCH ×3 (02:42→17:18)
[2016-09-14] MEDS: ALBUTEROL SO4 2.5/IPRATROPIUM 0.5 INH SOL 3 ML VIAL.NEB. NEB PRN ×2 (03:09→22:40)
[2016-09-14] MEDS: HEPARIN NA (PORCINE) 5,000 UNITS/ML 1ML VIAL SQ SCH ×3 (06:51→21:26)
[2016-09-14] MEDS: INSULIN SLIDING SCALE (NOVOLOG) 1 VIAL SQ SCH ×4 (06:52→22:17)
[2016-09-14 07:52] LABS: BASOPHIL 0.1 % (0-2.0); MCH 28.7 pg (25.7-33.7); MCHC 32.3 g/dl (32.0-35.9); MEAN CELL VOLUME 88.9 fl (80-96); MEAN PLT VOLUME 9.4 fl (7.5-11.1); PLATELET COUNT 223 K/MM3 (134-434); RDW 13.5 % (11.9-15.9); WHITE BLOOD COUNT 17.9 K/mm3 (4.0-10.0)
--- NOTE | 2016-09-14 08:01 | PN ---
Progress Note, Physician History of Present Illness: PULMONARY ALERT,OOB-CHAIR,STILLL C/O SOB,DID NOT SLEEP WELL SECONDARY TO COUGH - Current Medication List Current Medications: Active Medications Albuterol/Ipratropium (Duoneb -) 1 amp NEB Q6H PRN PRN Reason: SHORT OF BREATH/WHEEZING Last Admin: 09/14/16 03:09 Dose: 1 amp Budesonide/Formoterol Fumarate (Symbicort 160/4.5mcg -) 1 puff IH BID [facility] Last Admin: 09/13/16 21:30 Dose: 1 puff Furosemide (Lasix Injection -) 40 mg IVPUSH DAILY [facility] Last Admin: 09/13/16 12:00 Dose: 40 mg Heparin Sodium (Porcine) (Heparin -) 5,000 unit SQ TID [facility] Last Admin: 09/14/16 06:51 Dose: 5,000 unit Azithromycin (Zithromax 500mg Ivpb (Pre-Docked)) 250 mls @ 250 mls/hr IVPB Q24H [facility] Last Admin: 09/13/16 09:57 Dose: 250 mls/hr Ceftriaxone Sodium (Rocephin 2gm Ivpb (Pre-Docked)) 100 mls @ 200 mls/hr IVPB DAILY [facility] Last Admin: 09/13/16 09:56 Dose: 200 mls/hr Insulin Aspart (Novolog Vial Sliding Scale -) 1 vial SQ TIDAC [facility] PRN Reason: Protocol Last Admin: 09/14/16 06:52 Dose: Not Given Methylprednisolone Sodium Succinate (Solu-Medrol -) 40 mg IVPB Q8H-IV [facility] Last Admin: 09/14/16 02:42 Dose: 40 mg - Objective Vital Signs: Vital Signs Temperature 98.1 F 09/14/16 06:00 Pulse Rate 93 H 09/14/16 06:00 Respiratory Rate 19 09/14/16 06:00 Blood Pressure 122/52 09/14/16 06:00 O2 Sat by Pulse Oximetry (%) 96 09/14/16 06:48 Constitutional: Yes: Well Nourished, Calm Eyes: Yes: WNL HENT: Yes: WNL Neck: Yes: WNL Cardiovascular: Yes: Regular Rate and Rhythm, S1, S2 Respiratory: Yes: Rales (FEW BIBASILAR CRACKLES) Gastrointestinal: Yes: Normal Bowel Sounds, Soft Extremities: Yes: WNL Edema: No Labs: Assessment/Plan Assessment/Plan Problem List - Problems (1) COPD with acute exacerbation Code(s): J44.1 - CHRONIC OBSTRUCTIVE PULMONARY DISEASE W (ACUTE) EXACERBATION (2) Leukocytosis Code(s): D72.829 - ELEVATED WHITE BLOOD CELL COUNT, UNSPECIFIED (3) Obesity Code(s): E66.9 - OBESITY, UNSPECIFIED Qualifiers: Obesity severity: morbid (4) Pericardial effusion Code(s): I31.3 - PERICARDIAL EFFUSION (NONINFLAMMATORY) (5) Pleural effusion Code(s): J90 - PLEURAL EFFUSION, NOT ELSEWHERE CLASSIFIED Assessment/Plan COPD EXACERBATION H/O PERICARDIAL EFFUSION S/P WINDOW SMALL R PLEURAL EFFUSION PLAN INHALED BRONCHODILATORS O2 SUPPLEMENTATION CONTINUE STEROIDS SAME DOSE ANTIBIOTICS PER ID CHEST X-RAY SHRUTHI HOLMAN
[2016-09-14 08:32] LABS: CALCIUM 8.3 mg/dL (8.5-10.1); MAGNESIUM 2.6 mg/dL (1.8-2.4)
[2016-09-14 08:33] LABS: CREATININE 0.7 mg/dL (0.7-1.3)
[2016-09-14] MEDS ORDERED: PT OWN MED DRAWER 7, Y5N ONE ×2 (09:00→21:13)
[2016-09-14] MEDS ORDERED: REFRIGERATED ANITBIOTICS ONE (09:11)
[2016-09-14] MEDS: CEFTRIAXONE 100 ML IVPB SCH (09:24)
[2016-09-14] MEDS: FUROSEMIDE 40 MG/4 ML INJECTABLE VIAL IVPUSH SCH (09:25)
[2016-09-14] MEDS: BUDESONIDE/FORMETEROL FUMARATE 160/4.5 mcg INHALER IH SCH ×2 (09:25→21:28)
[2016-09-14] MEDS: AZITHROMYCIN IVPB 250 ML IVPB SCH (09:26)
[2016-09-14] MEDS ORDERED: INSULIN (NOVOLOG) ASPART 100 UNITS/ML 10ML VIAL ONE ×2 (10:40→16:42)
--- NOTE | 2016-09-14 10:42 | PN ---
Progress Note, Physician Chief Complaint: Events noted Complains of dyspnea and cough with difficulty bringing up sputum Chest tightness History of Present Illness: Patient was seen and examined. Awake and alert. Chart was reviewed As outlined with dyspnea and chest tightness - Current Medication List Current Medications: Active Medications Albuterol/Ipratropium (Duoneb -) 1 amp NEB Q6H PRN PRN Reason: SHORT OF BREATH/WHEEZING Last Admin: 09/14/16 03:09 Dose: 1 amp Budesonide/Formoterol Fumarate (Symbicort 160/4.5mcg -) 1 puff IH BID [facility] Last Admin: 09/14/16 09:25 Dose: 1 puff Furosemide (Lasix Injection -) 40 mg IVPUSH DAILY [facility] Last Admin: 09/14/16 09:25 Dose: 40 mg Guaifenesin (Robitussin Dm -) 10 ml PO Q4H PRN PRN Reason: COUGH Heparin Sodium (Porcine) (Heparin -) 5,000 unit SQ TID [facility] Last Admin: 09/14/16 06:51 Dose: 5,000 unit Azithromycin (Zithromax 500mg Ivpb (Pre-Docked)) 250 mls @ 250 mls/hr IVPB Q24H [facility] Last Admin: 09/14/16 09:26 Dose: 250 mls/hr Ceftriaxone Sodium (Rocephin 2gm Ivpb (Pre-Docked)) 100 mls @ 200 mls/hr IVPB DAILY [facility] Last Admin: 09/14/16 09:24 Dose: 200 mls/hr Insulin Aspart (Novolog Vial Sliding Scale -) 1 vial SQ TIDAC [facility] PRN Reason: Protocol Last Admin: 09/14/16 06:52 Dose: Not Given Methylprednisolone Sodium Succinate (Solu-Medrol -) 40 mg IVPB Q8H-IV [facility] Last Admin: 09/14/16 09:25 Dose: 40 mg - Objective Vital Signs: Vital Signs Temperature 98.1 F 09/14/16 06:00 Pulse Rate 93 H 09/14/16 06:00 Respiratory Rate 19 09/14/16 08:42 Blood Pressure 122/52 09/14/16 06:00 O2 Sat by Pulse Oximetry (%) 96 09/14/16 08:42 Neck: Yes: Supple Cardiovascular: Yes: Regular Rate and Rhythm, S1, S2. No: Murmur Respiratory: Yes: Diminished Gastrointestinal: Yes: Normal Bowel Sounds, Soft, Abdomen, Obese. No: Tenderness Edema: Yes Edema: LLE: 1+, RLE: 1+ Additional Findings/Remarks: Review of Systems Constitutional: denies: chills, fever Cardiovascular: denies: chest pain, (+) shortness of breath, palpitation Respiratory: (+) cough, sputum production, (-) hemoptysis Gastrointestinal: denies: nausea, vomiting, diarrhea, constipation or abdominal pain Genitourinary: No symptoms reported Musculoskeletal: No symptoms reported Labs: CBC, BMP 09/14/16 06:00 09/14/16 06:00 INR, PTT INR 1.20 (0.82-1.09) H 09/12/16 05:41 Problem List - Problems (1) COPD exacerbation Code(s): J44.1 - CHRONIC OBSTRUCTIVE PULMONARY DISEASE W (ACUTE) EXACERBATION (2) Leukocytosis Code(s): D72.829 - ELEVATED WHITE BLOOD CELL COUNT, UNSPECIFIED (3) Pericardial effusion Code(s): I31.3 - PERICARDIAL EFFUSION (NONINFLAMMATORY) (4) Sleep apnea Code(s): G47.30 - SLEEP APNEA, UNSPECIFIED Qualifiers: Sleep apnea type: unspecified type Qualified Code(s): G47.30 - Sleep apnea, unspecified Assessment/Plan 1. COPD exacerbation and URI 2. Acute on chronic LV diastolic failure with mild pedal edema 3. 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 History of pericardial effusion PLAN: 1. Transthoracic echocardiography report was reviewed 2. Continue bronchodilators, O2, steroid taper and empiric antibiotics coverage 3. Diuretics and monitor I/Os 4. Monitor electrolytes Further plans are to follow Kevin Monte MD
[2016-09-14] MEDS: guaiFENesin/D-METHORPHAN HB 10 ML UNIT-DOSE CUPS PO PRN ×2 (12:35→21:35)
[2016-09-14] MEDS ORDERED: Insulin (LOG) Aspart 100 UNITS/ML VIAL SQ STA (16:33)
--- NOTE | 2016-09-14 16:42 | PN ---
Physical Exam: SUBJECTIVE: Patient seen and examined oob to chair. Watching football. SOB is only slightly better than when he first came to the hospital. OBJECTIVE: Vital Signs Period Temp Pulse Resp BP Sys/Martinez Pulse Ox Last 24 Hr 97.3 F-98.1 F 87-98 18-20 122-138/52-79 90-97 GENERAL: The patient is awake, alert, and fully oriented, in no acute distress. HEAD: Normal with no signs of trauma. EYES: PERRL, extraocular movements intact, sclera anicteric, conjunctiva clear. No ptosis. LUNGS: Poor inspiratory effort; bibasilar crakcles, slightly SOB with speaking on NC HEART: Regular rate and rhythm, S1, S2 without murmur, rub or gallop. ABDOMEN: Markedly distended, tympanic, not tender, hypoactive bowel sounds EXTREMITIES: 2+ pulses, warm, well-perfused; 2+ edema RLE, 1+ on LLE NEUROLOGICAL: Cranial nerves II through XII grossly intact. Normal speech, steady gait. Able to go from bed to chair without assistance. Laboratory Results - last 24 hr 09/13/16 09/13/16 09/14/16 17:31 23:04 06:00 WBC RBC Hgb Hct MCV MCHC RDW Plt Count MPV Neutrophils % Lymphocytes % Monocytes % Eosinophils % Basophils % Sodium 143 Potassium 5.0 D Chloride 101 Carbon Dioxide 35 H D Anion Gap 7 L BUN 19 H Creatinine 0.7 D POC Glucometer 291 269 Random Glucose 157 H Calcium 8.3 L Magnesium 2.6 H 09/14/16 09/14/16 09/14/16 06:00 06:50 10:31 WBC 17.9 H RBC 4.67 Hgb 13.4 Hct 41.5 MCV 88.9 MCHC 32.3 RDW 13.5 Plt Count 223 MPV 9.4 Neutrophils % 90.0 H Lymphocytes % 4.2 L D Monocytes % 5.7 Eosinophils % 0.0 Basophils % 0.1 Sodium Potassium Chloride Carbon Dioxide Anion Gap BUN Creatinine POC Glucometer 146 329 Random Glucose Calcium Magnesium Current Medications Generic Name Dose Route Start Last Admin Trade Name Freq PRN Reason Stop Dose Admin Albuterol/Ipratropium 1 amp 09/12/16 08:33 09/14/16 03:09 Duoneb - NEB 1 amp Q6H PRN Administration SHORT OF BREATH/WHEEZING Budesonide/Formoterol Fumarate 1 puff 09/12/16 10:00 09/14/16 09:25 Symbicort 160/4.5mcg - IH 1 puff BID [facility] Administration Furosemide 40 mg 09/15/16 06:00 Lasix Injection - IVPUSH BID@0600,1400 [facility] Guaifenesin 10 ml 09/14/16 10:35 09/14/16 12:35 Robitussin Dm - PO 10 ml Q4H PRN Administration COUGH Heparin Sodium (Porcine) 5,000 unit 09/13/16 14:00 09/14/16 13:24 Heparin - SQ 5,000 unit TID [facility] Administration Azithromycin 250 mls @ 250 mls/hr 09/12/16 10:00 09/14/16 09:26 Zithromax 500mg Ivpb (Pre-Docked) IVPB 250 mls/hr Q24H [facility] Administration Ceftriaxone Sodium 100 mls @ 200 mls/hr 09/12/16 10:00 09/14/16 09:24 Rocephin 2gm Ivpb (Pre-Docked) IVPB 200 mls/hr DAILY [facility] Administration Insulin Aspart 1 vial 09/13/16 16:30 09/14/16 16:46 Novolog Vial Sliding Scale - SQ Not Given TIDAC [facility] Protocol Methylprednisolone Sodium Succinate 40 mg 09/13/16 18:00 09/14/16 09:25 Solu-Medrol - IVPB 40 mg Q8H-IV [facility] Administration ASSESSMENT/PLAN: 76 year-old man with a PMH of COPD and a pericardial effusion s/p pericardiocentesis (11/2015). Admitted for COPD v. CHF exacerbation. COPD exacerbation --continue Solumedrol q8h --continue Symbicort --pre post tomorrow Pneumonia v. Viral syndrome --Small to moderate right pleural effusion, cannot r/o infiltrates/pneumonia on CTA --WBC was 19.1 on admission, prior to steroid administration; afebrile --continue azithro (day #3) and ceftriaxone (day #3) per ID --if pleural effusion persists, may need thoracentesis Hyperglycemia --likely secondary to steroids but HgbA1C pending --Novolog sliding scale coverage h/o pericardial effusion --09/12 TTE: small almost circumferential echogenic area, may be remaining inflammatory debris from previous effusion; no evidence of tamponade Diastolic heart failure --right-side pleural effusion, chronic? --bilateral lower extremity edema --increase LasixIV to BID --continue to monitor renal function closely F/E/N Fluids: PO intake adequate Electrolytes: replete as indicated Nutrition: diabetic, low sodium diet DVT prophylaxis: subq heparin, oob, ambulation Rehab PT eval Daily PT Dispo: continues to require inpatient care. Full Code. Visit type - Emergency Visit Emergency Visit: Yes ED Registration Date: 09/12/16 Care time: The patient presented to the Emergency Department on the above date and was hospitalized for further evaluation of their emergent condition. - New Patient This patient is new to me today: Yes Date on this admission: 09/14/16 - Critical Care Critical Care patient: No
[2016-09-14] MEDS ORDERED: FUROSEMIDE 40 MG/4 ML INJECTABLE VIAL IVPUSH STA (17:05)
[2016-09-14] MEDS ORDERED: INSULIN (NOVOLOG) ASPART 100 UNITS/ML 10ML VIAL SQ SCH (22:00)
[2016-09-15] MEDS: methylPREDNISolone NA SUCC 40 MG/1 ML VIAL IVPB SCH ×3 (01:10→17:22)
[2016-09-15] MEDS: FUROSEMIDE 40 MG/4 ML INJECTABLE VIAL IVPUSH SCH ×2 (05:26→13:43)
[2016-09-15] MEDS: HEPARIN NA (PORCINE) 5,000 UNITS/ML 1ML VIAL SQ SCH ×2 (05:36→13:43)
[2016-09-15] MEDS ORDERED: INSULIN (NOVOLOG) ASPART 100 UNITS/ML 10ML VIAL ONE ×4 (06:28→22:30)
[2016-09-15] MEDS: INSULIN SLIDING SCALE (NOVOLOG) 1 VIAL SQ SCH ×4 (06:29→22:50)
--- NOTE | 2016-09-15 07:57 | PN ---
Progress Note, Physician - Current Medication List Current Medications: Active Medications Albuterol/Ipratropium (Duoneb -) 1 amp NEB Q6H PRN PRN Reason: SHORT OF BREATH/WHEEZING Last Admin: 09/14/16 22:40 Dose: 1 amp Budesonide/Formoterol Fumarate (Symbicort 160/4.5mcg -) 1 puff IH BID [facility] Last Admin: 09/14/16 21:28 Dose: 1 puff Furosemide (Lasix Injection -) 40 mg IVPUSH BID@0600,1400 [facility] Last Admin: 09/15/16 05:26 Dose: 40 mg Guaifenesin (Robitussin Dm -) 10 ml PO Q4H PRN PRN Reason: COUGH Last Admin: 09/14/16 21:35 Dose: 10 ml Heparin Sodium (Porcine) (Heparin -) 5,000 unit SQ TID [facility] Last Admin: 09/15/16 05:36 Dose: 5,000 unit Azithromycin (Zithromax 500mg Ivpb (Pre-Docked)) 250 mls @ 250 mls/hr IVPB Q24H [facility] Last Admin: 09/14/16 09:26 Dose: 250 mls/hr Ceftriaxone Sodium (Rocephin 2gm Ivpb (Pre-Docked)) 100 mls @ 200 mls/hr IVPB DAILY [facility] Last Admin: 09/14/16 09:24 Dose: 200 mls/hr Insulin Aspart (Novolog Vial Sliding Scale -) 1 vial SQ ACHS [facility] PRN Reason: Protocol Last Admin: 09/15/16 06:29 Dose: 2 units Methylprednisolone Sodium Succinate (Solu-Medrol -) 40 mg IVPB Q8H-IV [facility] Last Admin: 09/15/16 01:10 Dose: 40 mg - Objective Vital Signs: Vital Signs Temperature 97.7 F 09/15/16 05:50 Pulse Rate 90 09/15/16 05:50 Respiratory Rate 20 09/15/16 05:50 Blood Pressure 138/87 09/15/16 05:50 O2 Sat by Pulse Oximetry (%) 95 09/14/16 19:44 Labs: CBC, BMP 09/14/16 06:00 09/14/16 06:00 INR, PTT INR 1.20 (0.82-1.09) H 09/12/16 05:41 Assessment/Plan Assessment/Plan Problem List - Problems (1) COPD with acute exacerbation Code(s): J44.1 - CHRONIC OBSTRUCTIVE PULMONARY DISEASE W (ACUTE) EXACERBATION (2) Leukocytosis Code(s): D72.829 - ELEVATED WHITE BLOOD CELL COUNT, UNSPECIFIED (3) Obesity Code(s): E66.9 - OBESITY, UNSPECIFIED Qualifiers: Obesity severity: morbid (4) Pericardial effusion Code(s): I31.3 - PERICARDIAL EFFUSION (NONINFLAMMATORY) (5) Pleural effusion Code(s): J90 - PLEURAL EFFUSION, NOT ELSEWHERE CLASSIFIED Assessment/Plan COPD EXACERBATION H/O PERICARDIAL EFFUSION S/P WINDOW SMALL R PLEURAL EFFUSION PLAN INHALED BRONCHODILATORS O2 SUPPLEMENTATION CONTINUE STEROIDS SAME DOSE ANTIBIOTICS PER STEVEN HOLMAN
[2016-09-15 08:29] LABS: BASOPHIL 0.3 % (0-2.0); MEAN CELL VOLUME 87.3 fl (80-96); MEAN PLT VOLUME 8.8 fl (7.5-11.1); NEUTROPHILS 85.8 % (42.8-82.8); PLATELET COUNT 339 K/MM3 (134-434); RDW 12.8 % (11.9-15.9); WHITE BLOOD COUNT 15.6 K/mm3 (4.0-10.0)
--- NOTE | 2016-09-15 08:52 | PN ---
Progress Note, Physician History of Present Illness: Awake, alert No complaints offered Denies chest pain/ dyspnea/ cough Low grade fever Elevated WBC on steroids - Current Medication List Current Medications: Active Medications Albuterol/Ipratropium (Duoneb -) 1 amp NEB Q6H PRN PRN Reason: SHORT OF BREATH/WHEEZING Last Admin: 09/14/16 22:40 Dose: 1 amp Budesonide/Formoterol Fumarate (Symbicort 160/4.5mcg -) 1 puff IH BID [facility] Last Admin: 09/14/16 21:28 Dose: 1 puff Furosemide (Lasix Injection -) 40 mg IVPUSH BID@0600,1400 [facility] Last Admin: 09/15/16 05:26 Dose: 40 mg Guaifenesin (Robitussin Dm -) 10 ml PO Q4H PRN PRN Reason: COUGH Last Admin: 09/14/16 21:35 Dose: 10 ml Heparin Sodium (Porcine) (Heparin -) 5,000 unit SQ TID [facility] Last Admin: 09/15/16 05:36 Dose: 5,000 unit Azithromycin (Zithromax 500mg Ivpb (Pre-Docked)) 250 mls @ 250 mls/hr IVPB Q24H [facility] Last Admin: 09/14/16 09:26 Dose: 250 mls/hr Ceftriaxone Sodium (Rocephin 2gm Ivpb (Pre-Docked)) 100 mls @ 200 mls/hr IVPB DAILY [facility] Last Admin: 09/14/16 09:24 Dose: 200 mls/hr Insulin Aspart (Novolog Vial Sliding Scale -) 1 vial SQ ACHS MAKSIM PRN Reason: Protocol Last Admin: 09/15/16 06:29 Dose: 2 units Methylprednisolone Sodium Succinate (Solu-Medrol -) 40 mg IVPB Q8H-IV [facility] Last Admin: 09/15/16 01:10 Dose: 40 mg - Objective Vital Signs: Vital Signs Temperature 97.7 F 09/15/16 05:50 Pulse Rate 90 09/15/16 05:50 Respiratory Rate 20 09/15/16 07:57 Blood Pressure 138/87 09/15/16 05:50 O2 Sat by Pulse Oximetry (%) 95 09/15/16 07:57 Constitutional: Yes: No Distress, Obese Cardiovascular: Yes: Regular Rate and Rhythm, S1, S2 Respiratory: Yes: Diminished, Rhonchi Gastrointestinal: Yes: Normal Bowel Sounds, Soft, Abdomen, Obese. No: Tenderness Peripheral Pulses WNL: Yes Labs: CBC, BMP 09/15/16 07:55 INR, PTT INR 1.20 (0.82-1.09) H 09/12/16 05:41 Assessment/Plan Exacerbation COPD Possible RLL pneumonia Possible viral syndrome Continue empiric ceftriaxone/ zithromax Steroids, bronchodilators
[2016-09-15 09:00] LABS: ALK PHOS 84 U/L (32-92); ANION GAP 11 (8-16); BILIRUBIN,TOTAL 0.4 mg/dl (0.2-1.0); CALCIUM 9.2 mg/dl (8.4-10.2); CO2 41 mmol/L (22-28); CREATININE 0.8 mg/dl (0.6-1.3); GLUCOSE,RANDOM 168 mg/dl (74-106); MAGNESIUM 2.2 mg/dL (1.8-2.4); SGOT/AST 42 U/L (10-42); SGPT/ALT 60 U/L (10-40); TOT PROT 7.3 g/dl (6.4-8.3)
--- NOTE | 2016-09-15 09:02 | PN ---
Progress Note, Physician History of Present Illness: Awake, alert No complaints offered Denies chest pain/ dyspnea/ cough + low aubrey - Current Medication List Current Medications: Active Medications Albuterol/Ipratropium (Duoneb -) 1 amp NEB Q6H PRN PRN Reason: SHORT OF BREATH/WHEEZING Last Admin: 09/14/16 22:40 Dose: 1 amp Budesonide/Formoterol Fumarate (Symbicort 160/4.5mcg -) 1 puff IH BID [facility] Last Admin: 09/14/16 21:28 Dose: 1 puff Furosemide (Lasix Injection -) 40 mg IVPUSH BID@0600,1400 [facility] Last Admin: 09/15/16 05:26 Dose: 40 mg Guaifenesin (Robitussin Dm -) 10 ml PO Q4H PRN PRN Reason: COUGH Last Admin: 09/14/16 21:35 Dose: 10 ml Heparin Sodium (Porcine) (Heparin -) 5,000 unit SQ TID [facility] Last Admin: 09/15/16 05:36 Dose: 5,000 unit Azithromycin (Zithromax 500mg Ivpb (Pre-Docked)) 250 mls @ 250 mls/hr IVPB Q24H [facility] Last Admin: 09/14/16 09:26 Dose: 250 mls/hr Ceftriaxone Sodium (Rocephin 2gm Ivpb (Pre-Docked)) 100 mls @ 200 mls/hr IVPB DAILY [facility] Last Admin: 09/14/16 09:24 Dose: 200 mls/hr Insulin Aspart (Novolog Vial Sliding Scale -) 1 vial SQ ACHS [facility]KS[facility] PRN Reason: Protocol Last Admin: 09/15/16 06:29 Dose: 2 units Methylprednisolone Sodium Succinate (Solu-Medrol -) 40 mg IVPB Q8H-IV [facility] Last Admin: 09/15/16 01:10 Dose: 40 mg - Objective Vital Signs: Vital Signs Temperature 97.7 F 09/15/16 05:50 Pulse Rate 90 09/15/16 05:50 Respiratory Rate 20 09/15/16 07:57 Blood Pressure 138/87 09/15/16 05:50 O2 Sat by Pulse Oximetry (%) 95 09/15/16 07:57 Labs: CBC, BMP 09/15/16 07:55 INR, PTT INR 1.20 (0.82-1.09) H 09/12/16 05:41
[2016-09-15] MEDS ORDERED: PT OWN MED DRAWER 7, Y5N ONE ×2 (09:13→21:05)
[2016-09-15] MEDS: CEFTRIAXONE 100 ML IVPB SCH (09:18)
[2016-09-15] MEDS: BUDESONIDE/FORMETEROL FUMARATE 160/4.5 mcg INHALER IH SCH ×2 (09:18→21:27)
--- NOTE | 2016-09-15 09:38 | PN ---
Progress Note, Physician History of Present Illness: pulmonary alert,feeling better less dyspneic. - Current Medication List Current Medications: Active Medications Albuterol/Ipratropium (Duoneb -) 1 amp NEB Q6H PRN PRN Reason: SHORT OF BREATH/WHEEZING Last Admin: 09/14/16 22:40 Dose: 1 amp Budesonide/Formoterol Fumarate (Symbicort 160/4.5mcg -) 1 puff IH BID [facility] Last Admin: 09/15/16 09:18 Dose: 1 puff Furosemide (Lasix Injection -) 40 mg IVPUSH BID@0600,1400 [facility] Last Admin: 09/15/16 05:26 Dose: 40 mg Guaifenesin (Robitussin Dm -) 10 ml PO Q4H PRN PRN Reason: COUGH Last Admin: 09/14/16 21:35 Dose: 10 ml Heparin Sodium (Porcine) (Heparin -) 5,000 unit SQ TID [facility] Last Admin: 09/15/16 05:36 Dose: 5,000 unit Azithromycin (Zithromax 500mg Ivpb (Pre-Docked)) 250 mls @ 250 mls/hr IVPB Q24H [facility] Last Admin: 09/14/16 09:26 Dose: 250 mls/hr Ceftriaxone Sodium (Rocephin 2gm Ivpb (Pre-Docked)) 100 mls @ 200 mls/hr IVPB DAILY [facility] Last Admin: 09/15/16 09:18 Dose: 200 mls/hr Insulin Aspart (Novolog Vial Sliding Scale -) 1 vial SQ ACHS MAKSIM PRN Reason: Protocol Last Admin: 09/15/16 06:29 Dose: 2 units Methylprednisolone Sodium Succinate (Solu-Medrol -) 40 mg IVPB Q8H-IV [facility] Last Admin: 09/15/16 09:18 Dose: 40 mg - Objective Vital Signs: Vital Signs Temperature 97.7 F 09/15/16 05:50 Pulse Rate 90 09/15/16 05:50 Respiratory Rate 20 09/15/16 07:57 Blood Pressure 138/87 09/15/16 05:50 O2 Sat by Pulse Oximetry (%) 95 09/15/16 07:57 Constitutional: Yes: Well Nourished, Calm Eyes: Yes: WNL HENT: Yes: WNL Neck: Yes: WNL Cardiovascular: Yes: Regular Rate and Rhythm, S1, S2 Respiratory: Yes: Diminished Gastrointestinal: Yes: Normal Bowel Sounds, Soft Extremities: Yes: WNL Edema: No Labs: Assessment/Plan Assessment/Plan Problem List - Problems (1) COPD with acute exacerbation Code(s): J44.1 - CHRONIC OBSTRUCTIVE PULMONARY DISEASE W (ACUTE) EXACERBATION (2) Leukocytosis Code(s): D72.829 - ELEVATED WHITE BLOOD CELL COUNT, UNSPECIFIED (3) Obesity Code(s): E66.9 - OBESITY, UNSPECIFIED Qualifiers: Obesity severity: morbid (4) Pericardial effusion Code(s): I31.3 - PERICARDIAL EFFUSION (NONINFLAMMATORY) (5) Pleural effusion Code(s): J90 - PLEURAL EFFUSION, NOT ELSEWHERE CLASSIFIED Assessment/Plan COPD EXACERBATION H/O PERICARDIAL EFFUSION S/P WINDOW SMALL R PLEURAL EFFUSION PLAN INHALED BRONCHODILATORS O2 SUPPLEMENTATION CONTINUE STEROIDS SAME DOSE ANTIBIOTICS PER STEVEN HOLMAN
[2016-09-15] MEDS: AZITHROMYCIN IVPB 250 ML IVPB SCH (10:08)
[2016-09-15] MEDS: ALBUTEROL SO4 2.5/IPRATROPIUM 0.5 INH SOL 3 ML VIAL.NEB. NEB PRN (11:45)
--- NOTE | 2016-09-15 13:52 | PN ---
[id number] 4Bd OBJECTIVE:patient is a 76 y/o male with a past medical history of copd and pericardial effusion s/p pericardiocentesis (12/07). patient was admitted from the emergency department for COPD exacerbation Vital Signs Period Temp Pulse Resp BP Sys/Martinez Pulse Ox Last 24 Hr 97.7 F-100.4 F 90-98 18-20 132-138/74-87 90-96 GENERAL: The patient is awake, alert, and fully oriented, in no acute distress. HEAD: Normal with no signs of trauma. EYES: PERRL, extraocular movements intact, sclera anicteric, conjunctiva clear. No ptosis. ENT: Ears normal, nares patent, oropharynx clear without exudates, moist mucous membranes. NECK: Trachea midline, full range of motion, supple. LUNGS: Breath sounds equal, clear apexes bilaterally, coarse rhonchi noted to bases, , no wheezes, no crackles, no accessory muscle use. HEART: Regular rate and rhythm, S1, S2 without murmur, rub or gallop. ABDOMEN: Soft, nontender, nondistended, normoactive bowel sounds, no guarding, no rebound, no hepatosplenomegaly, no masses. EXTREMITIES: 2+ pulses, warm, well-perfused, +1 lower extremity edema. NEUROLOGICAL: Cranial nerves II through XII grossly intact. Normal speech, gait not observed. PSYCH: Normal mood, normal affect. SKIN: Warm, dry, normal turgor, no rashes or lesions noted Laboratory Results - last 24 hr 09/14/16 09/14/16 09/15/16 16:30 21:08 06:08 WBC RBC Hgb Hct MCV MCHC RDW Plt Count MPV Neutrophils % Lymphocytes % Monocytes % Eosinophils % Basophils % Sodium Potassium Chloride Carbon Dioxide Anion Gap BUN Creatinine Creat Clearance w eGFR POC Glucometer 428 300 162 Random Glucose Hemoglobin A1c % Calcium Magnesium Total Bilirubin AST ALT Alkaline Phosphatase Total Protein Albumin 09/15/16 09/15/16 09/15/16 07:55 07:55 07:55 WBC 15.6 H RBC 5.61 H Hgb 15.7 D Hct 49.0 D MCV 87.3 MCHC 32.0 RDW 12.8 Plt Count 339 D MPV 8.8 Neutrophils % 85.8 H Lymphocytes % 8.1 D Monocytes % 5.8 Eosinophils % 0.0 D Basophils % 0.3 Sodium 141 Potassium 4.7 Chloride 89 L D Carbon Dioxide 41 H D Anion Gap 11 BUN 24 H Creatinine 0.8 Creat Clearance w eGFR > 60 POC Glucometer Random Glucose 168 H D Hemoglobin A1c % 6.9 H D Calcium 9.2 Magnesium 2.2 Total Bilirubin 0.4 D AST 42 ALT 60 H Alkaline Phosphatase 84 Total Protein 7.3 Albumin 4.0 09/15/16 11:13 WBC RBC Hgb Hct MCV MCHC RDW Plt Count MPV Neutrophils % Lymphocytes % Monocytes % Eosinophils % Basophils % Sodium Potassium Chloride Carbon Dioxide Anion Gap BUN Creatinine Creat Clearance w eGFR POC Glucometer 348 Random Glucose Hemoglobin A1c % Calcium Magnesium Total Bilirubin AST ALT Alkaline Phosphatase Total Protein Albumin Active Medications Generic Name Dose Route Start Last Admin Trade Name Freq PRN Reason Stop Dose Admin Albuterol/Ipratropium 1 amp 09/12/16 08:33 09/15/16 11:45 Duoneb - NEB 1 amp Q6H PRN Administration SHORT OF BREATH/WHEEZING Budesonide/Formoterol Fumarate 1 puff 09/12/16 10:00 09/15/16 09:18 Symbicort 160/4.5mcg - IH 1 puff BID MAKSIM Administration Furosemide 40 mg 09/15/16 06:00 09/15/16 13:43 Lasix Injection - IVPUSH 40 mg BID@0600,1400 [facility] Administration Guaifenesin 10 ml 09/14/16 10:35 09/14/16 21:35 Robitussin Dm - PO 10 ml Q4H PRN Administration COUGH Heparin Sodium (Porcine) 5,000 unit 09/13/16 14:00 09/15/16 13:43 Heparin - SQ 5,000 unit TID [facility]KSIM Administration Azithromycin 250 mls @ 250 mls/hr 09/12/16 10:00 09/15/16 10:08 Zithromax 500mg Ivpb (Pre-Docked) IVPB 250 mls/hr Q24H [facility] Administration Ceftriaxone Sodium 100 mls @ 200 mls/hr 09/12/16 10:00 09/15/16 09:18 Rocephin 2gm Ivpb (Pre-Docked) IVPB 200 mls/hr DAILY [facility] Administration Insulin Aspart 1 vial 09/14/16 22:00 09/15/16 11:34 Novolog Vial Sliding Scale - SQ 8 units ACHS MAKSIM Administration Protocol Methylprednisolone Sodium Succinate 40 mg 09/13/16 18:00 09/15/16 09:18 Solu-Medrol - IVPB 40 mg Q8H-IV [facility]KSIM Administration Microbiology 09/12/16 07:30 Blood - Peripheral Venous Blood Culture - Preliminary NO GROWTH OBTAINED AFTER 72 HOURS, INCUBATION TO CONTINUE FOR 2 DAYS. 09/12/16 07:30 Blood - Peripheral Venous Blood Culture - Preliminary NO GROWTH OBTAINED AFTER 72 HOURS, INCUBATION TO CONTINUE FOR 2 DAYS. 09/13/16 04:25 Urine For Antigen Detection Legionella Antigen - Final, negative 09/13/16 04:25 Urine For Antigen Detection Streptococcus pneumoniae Antigen (M - Final, negative 09/12/16 08:44 Urine - Urine Clean Catch Urine Culture - Final NO GROWTH OBTAINED 09/12/16 09:32 Nasopharyngeal Swab Influenza Types A,B Antigen (MADY) - Final 09/12/16 09:32 Nasopharyngeal Swab - Final ASSESSMENT/PLAN: 1) pulm: COPD exacerbation -continue Solumedrol q8h -continue Symbicort Pneumonia -Small to moderate right pleural effusion, cannot r/o infiltrates/pneumonia on CTA - pt afebrile, trend WBC, leukocytosis noted may be reactive due to steroids - -continue azithro (day #4) and ceftriaxone (day #4) per ID -if pleural effusion persists, may need thoracentesis 2) Hyperglycemia -likely secondary to steroids but HgbA1C slightly elevated -Novolog sliding scale coverage 3) card h/o pericardial effusion -09/12 TTE: small almost circumferential echogenic area, may be remaining inflammatory debris from previous effusion; no evidence of tamponade Diastolic heart failure -right-side pleural effusion, chronic? -continue lasix daiily -continue to monitor renal function closely F/E/N Fluids: PO intake adequate Electrolytes: replete as indicated Nutrition: diabetic, low sodium diet DVT prophylaxis: subq heparin, oob, ambulation Rehab PT eval Daily PT Dispo: continues to require inpatient care. Full Code. Problem List - Problems (1) COPD exacerbation Code(s): J44.1 - CHRONIC OBSTRUCTIVE PULMONARY DISEASE W (ACUTE) EXACERBATION (2) Pleural effusion Code(s): J90 - PLEURAL EFFUSION, NOT ELSEWHERE CLASSIFIED Visit type - Emergency Visit Emergency Visit: Yes ED Registration Date: 09/12/16 Care time: The patient presented to the Emergency Department on the above date and was hospitalized for further evaluation of their emergent condition. - New Patient This patient is new to me today: No - Critical Care Critical Care patient: No - Discharge Referral Referred to [facility] Med P.C.: Yes Physician Referral: Chacho Davidson MD (Int Med)
[2016-09-16] MEDS: methylPREDNISolone NA SUCC 40 MG/1 ML VIAL IVPB SCH ×3 (02:00→21:18)
[2016-09-16] MEDS: INSULIN SLIDING SCALE (NOVOLOG) 1 VIAL SQ SCH ×4 (06:56→21:20)
--- NOTE | 2016-09-16 07:59 | PN ---
Progress Note, Physician History of Present Illness: PULMONARY ALERT,FEELING BETTER,LESS DYSPNEIC. O2 SAT 87% ON RA - Current Medication List Current Medications: Active Medications Albuterol/Ipratropium (Duoneb -) 1 amp NEB Q6H PRN PRN Reason: SHORT OF BREATH/WHEEZING Last Admin: 09/15/16 11:45 Dose: 1 amp Budesonide/Formoterol Fumarate (Symbicort 160/4.5mcg -) 1 puff IH BID [facility] Last Admin: 09/15/16 21:27 Dose: 1 puff Enoxaparin Sodium (Lovenox -) 40 mg SQ DAILY [facility] Furosemide (Lasix Injection -) 40 mg IVPUSH DAILY [facility] Guaifenesin (Robitussin Dm -) 10 ml PO Q4H PRN PRN Reason: COUGH Last Admin: 09/14/16 21:35 Dose: 10 ml Azithromycin (Zithromax 500mg Ivpb (Pre-Docked)) 250 mls @ 250 mls/hr IVPB Q24H [facility] Last Admin: 09/15/16 10:08 Dose: 250 mls/hr Ceftriaxone Sodium (Rocephin 2gm Ivpb (Pre-Docked)) 100 mls @ 200 mls/hr IVPB DAILY [facility] Last Admin: 09/15/16 09:18 Dose: 200 mls/hr Insulin Aspart (Novolog Vial Sliding Scale -) 1 vial SQ ACHS [facility] PRN Reason: Protocol Last Admin: 09/16/16 06:56 Dose: 2 units Insulin Detemir (Levemir Vial) 10 units SQ HS [facility] Methylprednisolone Sodium Succinate (Solu-Medrol -) 40 mg IVPB Q8H-IV [facility] Last Admin: 09/16/16 02:00 Dose: 40 mg - Objective Vital Signs: Vital Signs Temperature 97.6 F 09/16/16 05:04 Pulse Rate 74 09/16/16 05:04 Respiratory Rate 18 09/16/16 05:04 Blood Pressure 123/57 09/16/16 05:04 O2 Sat by Pulse Oximetry (%) 97 09/15/16 22:20 Constitutional: Yes: Well Nourished, Calm Eyes: Yes: WNL HENT: Yes: WNL Neck: Yes: WNL Cardiovascular: Yes: Regular Rate and Rhythm, S1, S2 Respiratory: Yes: Rales (BIBASILAR CRACKLES) Gastrointestinal: Yes: Normal Bowel Sounds, Soft Extremities: Yes: WNL Edema: No Assessment/Plan Assessment/Plan Problem List - Problems (1) COPD with acute exacerbation Code(s): J44.1 - CHRONIC OBSTRUCTIVE PULMONARY DISEASE W (ACUTE) EXACERBATION (2) Leukocytosis Code(s): D72.829 - ELEVATED WHITE BLOOD CELL COUNT, UNSPECIFIED (3) Obesity Code(s): E66.9 - OBESITY, UNSPECIFIED Qualifiers: Obesity severity: morbid (4) Pericardial effusion Code(s): I31.3 - PERICARDIAL EFFUSION (NONINFLAMMATORY) (5) Pleural effusion Code(s): J90 - PLEURAL EFFUSION, NOT ELSEWHERE CLASSIFIED Assessment/Plan COPD EXACERBATION H/O PERICARDIAL EFFUSION S/P WINDOW SMALL R PLEURAL EFFUSION PLAN INHALED BRONCHODILATORS O2 SUPPLEMENTATION TAPER STEROIDS ANTIBIOTICS PER STEVEN HOLMAN
[2016-09-16 08:22] LABS: BASOPHIL 0.5 % (0-2.0); MCH 27.5 pg (25.7-33.7); MCHC 31.6 g/dl (32.0-35.9); MEAN CELL VOLUME 86.9 fl (80-96); MEAN PLT VOLUME 8.8 fl (7.5-11.1); NEUTROPHILS 85.3 % (42.8-82.8); PLATELET COUNT 324 K/MM3 (134-434); RDW 12.6 % (11.9-15.9); WHITE BLOOD COUNT 12.9 K/mm3 (4.0-10.0)
[2016-09-16] MEDS: CEFTRIAXONE 100 ML IVPB SCH (09:00)
--- NOTE | 2016-09-16 09:13 | PN ---
Progress Note, Physician History of Present Illness: still with cough, difficulty mobilizing secretions mildly dyspneic at rest afebrile on steroids WBC slightly elevated - Current Medication List Current Medications: Active Medications Albuterol/Ipratropium (Duoneb -) 1 amp NEB Q6H PRN PRN Reason: SHORT OF BREATH/WHEEZING Last Admin: 09/15/16 11:45 Dose: 1 amp Budesonide/Formoterol Fumarate (Symbicort 160/4.5mcg -) 1 puff IH BID [facility] Last Admin: 09/15/16 21:27 Dose: 1 puff Enoxaparin Sodium (Lovenox -) 40 mg SQ DAILY [facility] Furosemide (Lasix Injection -) 40 mg IVPUSH DAILY [facility] Guaifenesin (Robitussin Dm -) 10 ml PO Q4H PRN PRN Reason: COUGH Last Admin: 09/14/16 21:35 Dose: 10 ml Azithromycin (Zithromax 500mg Ivpb (Pre-Docked)) 250 mls @ 250 mls/hr IVPB Q24H [facility] Last Admin: 09/15/16 10:08 Dose: 250 mls/hr Ceftriaxone Sodium (Rocephin 2gm Ivpb (Pre-Docked)) 100 mls @ 200 mls/hr IVPB DAILY [facility] Last Admin: 09/15/16 09:18 Dose: 200 mls/hr Insulin Aspart (Novolog Vial Sliding Scale -) 1 vial SQ ACHS [facility]KS[facility] PRN Reason: Protocol Last Admin: 09/16/16 06:56 Dose: 2 units Insulin Detemir (Levemir Vial) 10 units SQ HS [facility] Methylprednisolone Sodium Succinate (Solu-Medrol -) 40 mg IVPB Q8H-IV [facility] Last Admin: 09/16/16 02:00 Dose: 40 mg - Objective Vital Signs: Vital Signs Temperature 97.6 F 09/16/16 05:04 Pulse Rate 74 09/16/16 05:04 Respiratory Rate 18 09/16/16 05:04 Blood Pressure 123/57 09/16/16 05:04 O2 Sat by Pulse Oximetry (%) 97 09/15/16 22:20 Constitutional: Yes: No Distress Eyes: Yes: Conjunctiva Clear Cardiovascular: Yes: Regular Rate and Rhythm, S1, S2 Respiratory: Yes: Diminished Gastrointestinal: Yes: Normal Bowel Sounds, Soft, Abdomen, Obese. No: Tenderness Edema: Yes Edema: LLE: 1+, RLE: 1+ Labs: CBC, BMP 09/16/16 07:00 09/15/16 07:55 INR, PTT INR 1.20 (0.82-1.09) H 09/12/16 05:41 Assessment/Plan Exacerbation COPD Possible RLL pneumonia Possible viral syndrome Continue empiric ceftriaxone/ zithromax Steroids, bronchodilators
[2016-09-16] MEDS: AZITHROMYCIN IVPB 250 ML IVPB SCH (09:28)
[2016-09-16 09:31] LABS: ALBUMIN 3.9 g/dl (3.5-5.0); ALK PHOS 80 U/L (32-92); ANION GAP 10 (8-16); BILIRUBIN,TOTAL 0.2 mg/dl (0.2-1.0); CALCIUM 9.2 mg/dl (8.4-10.2); CO2 37 mmol/L (22-28); CREATININE 0.7 mg/dl (0.6-1.3); GLUCOSE,RANDOM 184 mg/dl (74-106); MAGNESIUM 2.4 mg/dL (1.8-2.4); PHOSPHOROUS 3.9 mg/dl (2.5-4.6); SGOT/AST 38 U/L (10-42); SGPT/ALT 63 U/L (10-40); TOT PROT 7.3 g/dl (6.4-8.3)
[2016-09-16] MEDS: guaiFENesin/D-METHORPHAN HB 10 ML UNIT-DOSE CUPS PO PRN (09:32)
[2016-09-16] MEDS: BUDESONIDE/FORMETEROL FUMARATE 160/4.5 mcg INHALER IH SCH ×2 (09:45→21:17)
[2016-09-16] MEDS ORDERED: FUROSEMIDE 40 MG/4 ML INJECTABLE VIAL IVPUSH SCH (10:00)
[2016-09-16] MEDS: ENOXAPARIN NA (PORCINE) 40 MG/0.4 ML DISP.SYRIN SQ SCH (10:00)
--- NOTE | 2016-09-16 11:38 | PN ---
Physical Exam: SUBJECTIVE: Patient seen and examined, patient reports feeling better, does report ongoing cough, reports some dyspnea on exertion. OBJECTIVE:patient is a 76 y/o male with a past medical history of copd and pericardial effusion s/p pericardiocentesis (12/07). patient was admitted from the emergency department for COPD exacerbation Vital Signs Period Temp Pulse Resp BP Sys/Martinez Pulse Ox Last 24 Hr 97.6 F-97.9 F 74-95 18-97 117-150/57-86 91-97 GENERAL: The patient is awake, alert, and fully oriented, in no acute distress. HEAD: Normal with no signs of trauma. EYES: PERRL, extraocular movements intact, sclera anicteric, conjunctiva clear. No ptosis. ENT: Ears normal, nares patent, oropharynx clear without exudates, moist mucous membranes. NECK: Trachea midline, full range of motion, supple. LUNGS: Breath sounds equal, rhonchi to billateral bases, no wheezes, no crackles , no accessory muscle use. HEART: Regular rate and rhythm, S1, S2 without murmur, rub or gallop. ABDOMEN: Soft, nontender, nondistended, normoactive bowel sounds, no guarding, no rebound, no hepatosplenomegaly, no masses. EXTREMITIES: 2+ pulses, warm, well-perfused, no edema. NEUROLOGICAL: Cranial nerves II through XII grossly intact. Normal speech, gait not observed. PSYCH: Normal mood, normal affect. SKIN: Warm, dry, normal turgor, no rashes or lesions noted Laboratory Results - last 24 hr 09/15/16 09/15/16 09/16/16 16:41 22:24 06:00 WBC RBC Hgb Hct MCV MCHC RDW Plt Count MPV Neutrophils % Lymphocytes % Monocytes % Eosinophils % Basophils % Sodium 138 Potassium 4.5 Chloride 91 L Carbon Dioxide 37 H Anion Gap 10 BUN 30 H D Creatinine 0.7 Creat Clearance w eGFR > 60 POC Glucometer 346 309 Random Glucose 184 H Calcium 9.2 Phosphorus 3.9 Magnesium 2.4 Total Bilirubin 0.2 D AST 38 ALT 63 H Alkaline Phosphatase 80 Total Protein 7.3 Albumin 3.9 09/16/16 09/16/16 06:39 07:00 WBC 12.9 H RBC 5.78 H Hgb 15.9 Hct 50.2 H MCV 86.9 MCHC 31.6 L RDW 12.6 Plt Count 324 MPV 8.8 Neutrophils % 85.3 H Lymphocytes % 8.8 Monocytes % 5.4 Eosinophils % 0.0 Basophils % 0.5 Sodium Potassium Chloride Carbon Dioxide Anion Gap BUN Creatinine Creat Clearance w eGFR POC Glucometer 174 Random Glucose Calcium Phosphorus Magnesium Total Bilirubin AST ALT Alkaline Phosphatase Total Protein Albumin Active Medications Generic Name Dose Route Start Last Admin Trade Name Freq PRN Reason Stop Dose Admin Albuterol/Ipratropium 1 amp 09/12/16 08:33 09/15/16 11:45 Duoneb - NEB 1 amp Q6H PRN Administration SHORT OF BREATH/WHEEZING Budesonide/Formoterol Fumarate 1 puff 09/12/16 10:00 09/16/16 09:45 Symbicort 160/4.5mcg - IH 1 puff BID MAKSIM Administration Enoxaparin Sodium 40 mg 09/16/16 10:00 Lovenox - SQ DAILY [facility] Furosemide 40 mg 09/16/16 10:00 09/16/16 09:33 Lasix Injection - IVPUSH 40 mg DAILY [facility]KSIM Administration Guaifenesin 10 ml 09/14/16 10:35 09/16/16 09:32 Robitussin Dm - PO 10 ml Q4H PRN Administration COUGH Azithromycin 250 mls @ 250 mls/hr 09/12/16 10:00 09/16/16 09:28 Zithromax 500mg Ivpb (Pre-Docked) IVPB 250 mls/hr Q24H [facility]KSIM Administration Ceftriaxone Sodium 100 mls @ 200 mls/hr 09/12/16 10:00 09/16/16 09:00 Rocephin 2gm Ivpb (Pre-Docked) IVPB 200 mls/hr DAILY [facility] Administration Insulin Aspart 1 vial 09/14/16 22:00 09/16/16 06:56 Novolog Vial Sliding Scale - SQ 2 units ACHS MAKSIM Administration Protocol Insulin Detemir 10 units 09/16/16 22:00 Levemir Vial SQ HS [facility] Methylprednisolone Sodium Succinate 40 mg 09/16/16 22:00 Solu-Medrol - IVPB Q12H [facility]KSIM Microbiology 09/12/16 07:30 Blood - Peripheral Venous Blood Culture - Preliminary NO GROWTH OBTAINED AFTER 96 HOURS, INCUBATION TO CONTINUE FOR 1 DAYS. 09/12/16 07:30 Blood - Peripheral Venous Blood Culture - Preliminary NO GROWTH OBTAINED AFTER 96 HOURS, INCUBATION TO CONTINUE FOR 1 DAYS. 09/12/16 09:32 Nasopharyngeal Swab Respiratory Virus Panel - Preliminary 09/13/16 04:25 Urine For Antigen Detection Legionella Antigen - Final, negative 09/13/16 04:25 Urine For Antigen Detection Streptococcus pneumoniae Antigen (M - Final, negative 09/12/16 08:44 Urine - Urine Clean Catch Urine Culture - Final NO GROWTH OBTAINED 09/12/16 09:32 Nasopharyngeal Swab Influenza Types A,B Antigen (MADY) - Final , negative ASSESSMENT/PLAN: 1) pulm: COPD exacerbation -decrease Solumedrol BID -continue Symbicort Pneumonia -Small to moderate right pleural effusion, cannot r/o infiltrates/pneumonia on CTA - pt afebrile, trend WBC, leukocytosis noted may be reactive due to steroids - -continue azithro (day # 5) and ceftriaxone (day # 5) per ID -if pleural effusion persists, may need thoracentesis 2) Hyperglycemia - fingersticks noted to be elevated, start levermir 10units HS -Novolog sliding scale coverage 3) card h/o pericardial effusion -09/12 TTE: small almost circumferential echogenic area, may be remaining inflammatory debris from previous effusion; no evidence of tamponade Diastolic heart failure -right-side pleural effusion, chronic? - iv lasix for 4 day, change to PO lasix -continue to monitor renal function closely F/E/N Fluids: PO intake adequate Electrolytes: replete as indicated Nutrition: diabetic, low sodium diet DVT prophylaxis: lovenox, oob, ambulation Dispo: continues to require inpatient care. Full Code. Problem List - Problems (1) COPD exacerbation Code(s): J44.1 - CHRONIC OBSTRUCTIVE PULMONARY DISEASE W (ACUTE) EXACERBATION (2) Pleural effusion Code(s): J90 - PLEURAL EFFUSION, NOT ELSEWHERE CLASSIFIED Visit type - Emergency Visit Emergency Visit: Yes ED Registration Date: 09/12/16 Care time: The patient presented to the Emergency Department on the above date and was hospitalized for further evaluation of their emergent condition. - New Patient This patient is new to me today: No - Critical Care Critical Care patient: No - Discharge Referral Referred to [facility] Med P.C.: No
[2016-09-16] MEDS ORDERED: PT OWN MED DRAWER 7, Y5N ONE (21:13)
[2016-09-16] MEDS ORDERED: INSULIN DETEMIR 100 UNITS/ML MDV SQ SCH (22:00)
[2016-09-17 06:05] VITALS: BP 128/76; PULSE 80; TEMP 98.8
--- NOTE | 2016-09-17 07:28 | PN ---
Progress Note, Physician History of Present Illness: PULMONARY ALERT,OOB-CHAIR,FEELING BETTER,COMFORTABLE,-SOB,COUGH IMPROVED - Current Medication List Current Medications: Active Medications Albuterol/Ipratropium (Duoneb -) 1 amp NEB Q6H PRN PRN Reason: SHORT OF BREATH/WHEEZING Last Admin: 09/15/16 11:45 Dose: 1 amp Budesonide/Formoterol Fumarate (Symbicort 160/4.5mcg -) 1 puff IH BID [facility] Last Admin: 09/16/16 21:17 Dose: 1 puff Enoxaparin Sodium (Lovenox -) 40 mg SQ DAILY [facility] Last Admin: 09/16/16 10:00 Dose: 40 mg Furosemide (Lasix -) 40 mg PO DAILY [facility] Guaifenesin (Robitussin Dm -) 10 ml PO Q4H PRN PRN Reason: COUGH Last Admin: 09/16/16 09:32 Dose: 10 ml Azithromycin (Zithromax 500mg Ivpb (Pre-Docked)) 250 mls @ 250 mls/hr IVPB Q24H [facility] Last Admin: 09/16/16 09:28 Dose: 250 mls/hr Ceftriaxone Sodium (Rocephin 2gm Ivpb (Pre-Docked)) 100 mls @ 200 mls/hr IVPB DAILY [facility] Last Admin: 09/16/16 09:00 Dose: 200 mls/hr Insulin Aspart (Novolog Vial Sliding Scale -) 1 vial SQ ACHS [facility] PRN Reason: Protocol Last Admin: 09/16/16 21:20 Dose: 4 units Insulin Detemir (Levemir Vial) 10 units SQ HS [facility] Last Admin: 09/16/16 21:17 Dose: 10 units Methylprednisolone Sodium Succinate (Solu-Medrol -) 40 mg IVPB Q12H [facility] Last Admin: 09/16/16 21:18 Dose: 40 mg - Objective Vital Signs: Vital Signs Temperature 98.8 F 09/17/16 06:00 Pulse Rate 80 09/17/16 06:00 Respiratory Rate 20 09/17/16 06:00 Blood Pressure 128/76 09/17/16 06:00 O2 Sat by Pulse Oximetry (%) 98 09/17/16 06:00 Constitutional: Yes: Well Nourished, Calm Eyes: Yes: WNL HENT: Yes: WNL Neck: Yes: WNL Cardiovascular: Yes: WNL Respiratory: Yes: CTA Bilaterally Gastrointestinal: Yes: Normal Bowel Sounds, Soft Extremities: Yes: WNL Edema: No Labs: CBC, BMP Assessment/Plan Assessment/Plan Problem List - Problems (1) COPD with acute exacerbation Code(s): J44.1 - CHRONIC OBSTRUCTIVE PULMONARY DISEASE W (ACUTE) EXACERBATION (2) Leukocytosis Code(s): D72.829 - ELEVATED WHITE BLOOD CELL COUNT, UNSPECIFIED (3) Obesity Code(s): E66.9 - OBESITY, UNSPECIFIED Qualifiers: Obesity severity: morbid (4) Pericardial effusion Code(s): I31.3 - PERICARDIAL EFFUSION (NONINFLAMMATORY) (5) Pleural effusion Code(s): J90 - PLEURAL EFFUSION, NOT ELSEWHERE CLASSIFIED Assessment/Plan COPD EXACERBATION H/O PERICARDIAL EFFUSION S/P WINDOW SMALL R PLEURAL EFFUSION PLAN INHALED BRONCHODILATORS O2 SUPPLEMENTATION PREDNISONE 40mg WITH TAPER ANTIBIOTICS PER STEVEN HOLMAN
[2016-09-17] MEDS: INSULIN SLIDING SCALE (NOVOLOG) 1 VIAL SQ SCH (08:05)
[2016-09-17 08:31] LABS: RDW 12.4 % (11.9-15.9)
[2016-09-17 08:39] LABS: MCHC 32.2 g/dl (32.0-35.9); MEAN CELL VOLUME 86.9 fl (80-96); MEAN PLT VOLUME 8.8 fl (7.5-11.1); PLATELET COUNT 337 K/MM3 (134-434); WHITE BLOOD COUNT 13.4 K/mm3 (4.0-10.0)
[2016-09-17 08:49] LABS: CALCIUM 9.2 mg/dl (8.4-10.2); CREATININE 0.8 mg/dl (0.6-1.3); MAGNESIUM 2.5 mg/dL (1.8-2.4); PHOSPHOROUS 5.4 mg/dl (2.5-4.6)
[2016-09-17] MEDS ORDERED: PT OWN MED DRAWER 7, Y5N ONE (09:03)
[2016-09-17] MEDS: methylPREDNISolone NA SUCC 40 MG/1 ML VIAL IVPB SCH (09:05)
[2016-09-17] MEDS: CEFTRIAXONE 100 ML IVPB SCH (09:05)
[2016-09-17] MEDS: AZITHROMYCIN IVPB 250 ML IVPB SCH (09:06)
[2016-09-17] MEDS: ENOXAPARIN NA (PORCINE) 40 MG/0.4 ML DISP.SYRIN SQ SCH (09:06)
--- NOTE | 2016-09-17 09:29 | PN ---
Progress Note, Physician History of Present Illness: OOB in chair No complaints. Denies dyspnea/ chest pain/ cough Comfortable at rest on nasal cannula Afebrile on steroids WBC improved - Current Medication List Current Medications: Active Medications Albuterol/Ipratropium (Duoneb -) 1 amp NEB Q6H PRN PRN Reason: SHORT OF BREATH/WHEEZING Last Admin: 09/15/16 11:45 Dose: 1 amp Budesonide/Formoterol Fumarate (Symbicort 160/4.5mcg -) 1 puff IH BID [facility] Last Admin: 09/16/16 21:17 Dose: 1 puff Enoxaparin Sodium (Lovenox -) 40 mg SQ DAILY [facility] Last Admin: 09/17/16 09:06 Dose: 40 mg Furosemide (Lasix -) 40 mg PO DAILY [facility] Last Admin: 09/17/16 09:05 Dose: 40 mg Guaifenesin (Robitussin Dm -) 10 ml PO Q4H PRN PRN Reason: COUGH Last Admin: 09/16/16 09:32 Dose: 10 ml Azithromycin (Zithromax 500mg Ivpb (Pre-Docked)) 250 mls @ 250 mls/hr IVPB Q24H [facility] Last Admin: 09/17/16 09:06 Dose: 250 mls/hr Ceftriaxone Sodium (Rocephin 2gm Ivpb (Pre-Docked)) 100 mls @ 200 mls/hr IVPB DAILY [facility] Last Admin: 09/17/16 09:05 Dose: 200 mls/hr Insulin Aspart (Novolog Vial Sliding Scale -) 1 vial SQ ACHS [facility] PRN Reason: Protocol Last Admin: 09/17/16 08:05 Dose: Not Given Insulin Detemir (Levemir Vial) 10 units SQ HS [facility] Last Admin: 09/16/16 21:17 Dose: 10 units Methylprednisolone Sodium Succinate (Solu-Medrol -) 40 mg IVPB Q12H [facility] Last Admin: 09/17/16 09:05 Dose: 40 mg - Objective Vital Signs: Vital Signs Temperature 98.8 F 09/17/16 06:00 Pulse Rate 80 09/17/16 06:00 Respiratory Rate 20 09/17/16 06:00 Blood Pressure 128/76 09/17/16 06:00 O2 Sat by Pulse Oximetry (%) 98 09/17/16 06:00 Constitutional: Yes: No Distress, Obese Eyes: Yes: Conjunctiva Clear Cardiovascular: Yes: Regular Rate and Rhythm, S1, S2 Respiratory: Yes: Rhonchi Gastrointestinal: Yes: Normal Bowel Sounds, Soft, Abdomen, Obese Edema: Yes Labs: CBC, BMP 09/17/16 07:00 09/17/16 07:00 INR, PTT INR 1.20 (0.82-1.09) H 09/12/16 05:41 Assessment/Plan Exacerbation COPD Possible RLL pneumonia Possible viral syndrome Continue empiric ceftriaxone/ zithromax May substitute po levaquin 500mg daily x7d when cleared for discharge by pulmonary Steroids, bronchodilators
[2016-09-17] MEDS ORDERED: FUROSEMIDE 40 MG TABLET (FP) PO SCH (10:00)
--- NOTE | 2016-09-17 11:14 | DS ---
Physical Exam: SUBJECTIVE: Patient seen and examined, OBJECTIVE: Vital Signs Period Temp Pulse Resp BP Sys/Martinez Pulse Ox Last 24 Hr 97.9 F-98.8 F 68-85 19-20 121-149/76-84 95-98 PHYSICAL EXAM GENERAL: The patient is awake, alert, and fully oriented, in no acute distress. HEAD: Normal with no signs of trauma. EYES: PERRL, extraocular movements intact, sclera anicteric, conjunctiva clear. ENT: Ears normal, nares patent, oropharynx clear without exudates, moist mucous membranes. NECK: Trachea midline, full range of motion, supple. LUNGS: Breath sounds equal, clear to auscultation bilaterally, no wheezes, no crackles, no accessory muscle use. HEART: Regular rate and rhythm, S1, S2 without murmur, rub or gallop. ABDOMEN: Soft, nontender, nondistended, normoactive bowel sounds, no guarding, no rebound, no hepatosplenomegaly, no masses. EXTREMITIES: 2+ pulses, warm, well-perfused, no edema. NEUROLOGICAL: Cranial nerves II through XII grossly intact. Normal speech, gait not observed. PSYCH: Normal mood, normal affect. SKIN: Warm, dry, normal turgor, no rashes or lesions noted. LABS Laboratory Results - last 24 hr 09/16/16 09/17/16 09/17/16 20:06 06:17 07:00 WBC 13.4 H RBC 5.76 H Hgb 16.1 Hct 50.1 H MCV 86.9 MCHC 32.2 RDW 12.4 Plt Count 337 MPV 8.8 Neutrophils % 77.0 Lymphocytes % 11.0 D Monocytes % 7.0 Band Neutrophils 5.0 D Sodium Potassium Chloride Carbon Dioxide Anion Gap BUN Creatinine POC Glucometer 244 174 Random Glucose Calcium Phosphorus Magnesium 09/17/16 07:00 WBC RBC Hgb Hct MCV MCHC RDW Plt Count MPV Neutrophils % Lymphocytes % Monocytes % Band Neutrophils Sodium 136 Potassium 5.1 Chloride 86 L Carbon Dioxide 39 H Anion Gap 11 BUN 33 H Creatinine 0.8 POC Glucometer Random Glucose 209 H Calcium 9.2 Phosphorus 5.4 H D Magnesium 2.5 H HOSPITAL COURSE: Date of Admission:09/12/16 Date of Discharge: 09/17/16 Minutes to complete discharge: 45 Discharge Summary Reason For Visit: COPD ACUTE EXACERBATION Current Active Problems COPD exacerbation (Acute) COPD with acute exacerbation (Acute) Condition: Stable - Instructions Referrals: Chacho Davidson MD [Primary Care Provider] - - Home Medications Comprehensive Discharge Medication List: Ambulatory Orders Fluticasone/Salmeterol [Advair 250-50 Diskus] 1 each IH BID 09/12/16 Problem List - Problems (1) COPD exacerbation Code(s): J44.1 - CHRONIC OBSTRUCTIVE PULMONARY DISEASE W (ACUTE) EXACERBATION (2) Pleural effusion Code(s): J90 - PLEURAL EFFUSION, NOT ELSEWHERE CLASSIFIED - Discharge Referral Referred to [facility] Yes Physician Referral: Chacho Davidson MD (Int Med)
== END 2016-09-17 14:16 | disposition home or self-care (01) | DRG 190 ==
LOC: FER 04:55 → SUPCPDRO 04:55 → OBSVTOIN 08:13 → FM/S 08:13 → UNDOADMOB 10:10 → FM/S 10:10
PROVIDERS: ADMIT Internal Medicine; ATTEND Nurse Practitioner Family
DX: J44.1 Chronic obstructive pulmonary disease with (acute) exacerbation (principal); J18.9 Pneumonia, unspecified organism; I50.33 Acute on chronic diastolic (congestive) heart failure; J90 Pleural effusion, not elsewhere classified; M54.5 Low back pain; E66.8 Other obesity; Z68.36 Body mass index [BMI] 36.0-36.9, adult; Z71.3 Dietary counseling and surveillance; D72.829 Elevated white blood cell count, unspecified; B34.9 Viral infection, unspecified; G47.30 Sleep apnea, unspecified; R73.9 Hyperglycemia, unspecified
CPT/HCPCS: 36415; 36600; 71010-TC; 71020-TC; 71275-TC; 80048; 80053; 81003; 81015; 82550; 82553; 82803; 83036; 83735; 83880; 84100; 84484; 85025; 85610; 87040; 87086; 87254; 87804; 87899; 93005; 93306-TC; 94010; 94640; 94761; 97116-GP; 97161-GP; 99285-25; J1644

== ENCOUNTER 2017-06-25 08:09 | Emergency (ER) | payer OTHER, MEDICARE ==
--- NOTE | 2017-06-25 08:24 | PDOC ---
History of Present Illness - General Chief Complaint: Cold Symptoms Stated Complaint: RUNNY NOSE Time Seen by Provider: 06/25/17 08:11 History Source: Patient Exam Limitations: No Limitations - History of Present Illness Initial Comments: 06/25/17 08:19 77 y/o male with mild congestion and runny nose. No fever or chills. No SOB or chest pain. Started yesterday. Uses inhalers for his emphysema. Denies traveling. No N/V/d/C. No other complaint at this time. Severity: mild Associated Symptoms: denies: cough, fever/chills, nausea/vomiting, shortness of breath Past History - Past Medical History Allergies/Adverse Reactions: Allergies Allergy/AdvReac Type Severity Reaction Status Date / Time No Known Allergies Allergy Verified 06/25/17 08:10 Home Medications: Ambulatory Orders Ranitidine HCl 150 mg PO DAILY capsule 09/26/16 Cholecalciferol (Vitamin D3) [Vitamin D3] 2,000 unit PO DAILY tablet 04/14/17 Azithromycin 250 mg PO DAILY #6 tablet 06/25/17 Asthma: Yes COPD: Yes Disorders: Yes (BPH) HTN: Yes - Surgical History Cardiac Surgery: Yes - Suicide/Smoking/Psychosocial Hx Smoking History: Current some day smoker Have you smoked in the past 12 months: Yes Number of Cigarettes Smoked Daily: 1 If you are a former smoker, when did you quit?: 2 YEARS AGO 'Breaking Loose' booklet given: 11/26/15 Hx Alcohol Use: Yes (Social) Drug/Substance Use Hx: No Substance Use Type: None Hx Substance Use Treatment: No Review of Systems - Review of Systems Able to Perform ROS?: Yes Is the patient limited Turkmen proficient: No Constitutional: No: Chills, Fever HEENTM: No: Difficulty Swallowing Respiratory: No: Cough, Shortness of Breath Cardiac (ROS): No: Chest Pain ABD/GI: No: Diarrhea, Nausea, Vomiting Integumentary: No: Erythema All Other Systems: Reviewed and Negative *Physical Exam - Physical Exam General Appearance: Yes: Nourished, Appropriately Dressed. No: Apparent Distress HEENT: positive: EOMI, YESY, Normal ENT Inspection Neck: positive: Trachea midline, Normal Thyroid, Supple. negative: Tender, Rigid Respiratory/Chest: positive: Lungs Clear, Normal Breath Sounds. negative: Chest Tender, Respiratory Distress, Rhonchi, Wheezing Cardiovascular: positive: Regular Rhythm, Regular Rate, S1, S2. negative: Edema , JVD, Murmur Vascular Pulses: Femoral (R): 4+, Femoral (L): 4+, Carotid (R): 4+, Carotid (L) : 4+, Dorsalis-Pedis (R): 4+, Doralis-Pedis (L): 4+ Gastrointestinal/Abdominal: positive: Normal Bowel Sounds, Flat, Soft. negative : Tender, Organomegaly, Pulsatile Mass Musculoskeletal: positive: Normal Inspection. negative: CVA Tenderness Extremity: positive: Normal Capillary Refill, Normal Inspection, Normal Range of Motion. negative: Tender Integumentary: positive: Normal Color, Dry, Warm Neurologic: positive: cushion gum applicator II-XII NML intact, Fully Oriented, Alert, Normal Mood/ Affect, Normal Response, Motor Strength 5/5 ED Treatment Course - ADDITIONAL ORDERS Additional order review: 06/25/17 08:23 Pt appears to have URI Due to underlying emphysema, will treat with Z-pack Pt is in agreement with plan *DC/Admit/Observation/Transfer Diagnosis at time of Disposition: URI (upper respiratory infection) Qualifiers: URI type: unspecified URI Qualified Code(s): J06.9 - Acute upper respiratory infection, unspecified - Discharge Dispostion Disposition: HOME Condition at time of disposition: Good Admit: No - Prescriptions Prescriptions: Azithromycin 250 mg PO DAILY #6 tablet - Patient Instructions Printed Discharge Instructions: DI for Viral Upper Respiratory Infection -- Adult Additional Instructions: Fluids, rest, Tylenol Z-pack as directed If worsen return to ER
[2017-06-25 08:39] VITALS: BP 132/85; PULSE 78; TEMP 97.5; BMI 37.9
== END 2017-06-25 08:43 | disposition home or self-care (01) ==
LOC: FER 08:09
DX: J06.9 Acute upper respiratory infection, unspecified (principal); J44.9 Chronic obstructive pulmonary disease, unspecified; I10 Essential (primary) hypertension; Z87.891 Personal history of nicotine dependence
CPT/HCPCS: 99281-25

== ENCOUNTER 2017-11-30 09:39 | Inpatient (IN) | payer OTHER, MEDICARE ==
[2017-11-30] MEDS ORDERED: ALBUTEROL SO4 2.5/IPRATROPIUM 0.5 INH SOL 3 ML VIAL.NEB. NEB ONE ×2 (09:45→09:48)
--- NOTE | 2017-11-30 09:50 | PDOC ---
History of Present Illness - General Chief Complaint: Respiratory Stated Complaint: COUGH X 3 DAYS Time Seen by Provider: 11/30/17 09:41 History Source: Patient Exam Limitations: No Limitations - History of Present Illness Initial Comments: 11/30/17 09:48 77 yo M c/ hx of asthma/COPD, HTN, DM, BPH p/w cough x 3 days. Denies sick contacts or recent travels. Stated having a productive cough (yellowish-dark) x 3 days. Some wheezing and some difficulty breathing. Endorses tactile fevers, chills. Denies chest pain. Has been adhere to his medications. Past History - Past Medical History Allergies/Adverse Reactions: Allergies Allergy/AdvReac Type Severity Reaction Status Date / Time No Known Allergies Allergy Verified 11/30/17 09:43 Home Medications: Ambulatory Orders Ranitidine HCl 150 mg PO DAILY capsule 09/26/16 Cholecalciferol (Vitamin D3) [Vitamin D3] 2,000 unit PO DAILY tablet 04/14/17 Azithromycin 250 mg PO DAILY #6 tablet 06/25/17 Lasix 06/25/17 Asthma: Yes COPD: Yes Disorders: Yes (BPH) HTN: Yes - Surgical History Cardiac Surgery: Yes - Suicide/Smoking/Psychosocial Hx Smoking History: Current some day smoker Have you smoked in the past 12 months: Yes Number of Cigarettes Smoked Daily: 1 If you are a former smoker, when did you quit?: 2 YEARS AGO 'Breaking Loose' booklet given: 11/26/15 Hx Alcohol Use: Yes (Social) Drug/Substance Use Hx: No Substance Use Type: None Hx Substance Use Treatment: No Review of Systems - Review of Systems Able to Perform ROS?: Yes Comments:: 11/30/17 09:50 ROS: GENERAL/CONSTITUTIONAL: + subjective fever or chills. No weakness. HEAD, EYES, EARS, NOSE AND THROAT: No change in vision. No ear pain or discharge. No sore throat. CARDIOVASCULAR: No chest pain. + shortness of breath. RESPIRATORY: + cough, wheezing. No hemoptysis. GASTROINTESTINAL: No nausea, vomiting, diarrhea or constipation. GENITOURINARY: No dysuria, frequency, or change in urination. MUSCULOSKELETAL: No joint or muscle swelling or pain. No neck or back pain. SKIN: No rash NEUROLOGIC: No headache, vertigo, loss of consciousness, or change in strength/ sensation. ENDOCRINE: No increased thirst. No abnormal weight change. HEMATOLOGIC/LYMPHATIC: No anemia, easy bleeding, or history of blood clots. ALLERGIC/IMMUNOLOGIC: No hives or skin allergy. *Physical Exam - Physical Exam Comments: 11/30/17 09:50 GENERAL: Awake, alert, and fully oriented, in no acute distress. HEAD: No signs of trauma EYES: PERRLA, EOMI, sclera anicteric, conjunctiva clear ENT: Auricles normal inspection, hearing grossly normal, nares patent NECK: Normal ROM, supple LUNGS: Breath sounds equal, clear to auscultation bilaterally.No wheezes, and no crackles. But coughing frequently throughout my exam. HEART: Regular rate and rhythm, normal S1 and S2, no murmurs, rubs or gallops EXTREMITIES: Normal range of motion, no edema.~ NEUROLOGICAL: Cranial nerves II through XII grossly intact.~ Normal speech SKIN: Warm, Dry, normal turgor, no rashes or lesions noted. Heart Score/ECG Review #1 ECG reviewed & interpreted by me at: 10:10 11/30/17 10:15 NSR 86, no std/alis, occasional PACs, normal axis, normal intervals, QTC 435 msec ED Treatment Course - LABORATORY CBC & Chemistry Diagram: 11/30/17 10:30 11/30/17 10:30 - RADIOLOGY Radiology Studies Ordered: Category Date Time Status CHEST PA & LAT [RAD] Stat Radiology 11/30/17 09:45 Ordered Medical Decision Making - Medical Decision Making 11/30/17 09:52 Pt overall nontoxic appearing. Though given hx of DM and COPD, will need a chest rxay. R/o PNA/bronchitis. Nebulizers. Consider prednisone (wheezing during coughing). Likely will need azithromycin. Labs. Reassess. 11/30/17 10:36 Chest xray presents with R sided pleural effusion and opacity concerning for PNA. Ceftriaxone and azithromycin ordered. Nebs and Steroids. The patient is at the very least a Class III risk for PORT score. Will admit patient given subjective history of dyspnea, PORT score, age, multiple comorbidities. 11/30/17 12:07 CBC, BMP 11/30/17 10:30 11/30/17 10:30 CMP Sodium 136 mmol/L (136-145) 11/30/17 10:30 Potassium 4.3 mmol/L (3.5-5.1) 11/30/17 10:30 Chloride 98 mmol/L (98-107) 11/30/17 10:30 Carbon Dioxide 30 mmol/L (22-28) H 11/30/17 10:30 Anion Gap 8 (8-16) 11/30/17 10:30 BUN 13 mg/dl (7-18) D 11/30/17 10:30 Creatinine 0.5 mg/dl (0.6-1.3) L D 11/30/17 10:30 Creat Clearance w eGFR > 60 (>60) 11/30/17 10:30 Random Glucose 137 mg/dl (74-106) H D 11/30/17 10:30 Lactic Acid 2.4 mmol/L (0.0-2.0) H* 11/30/17 10:30 Calcium 9.0 mg/dl (8.4-10.2) 11/30/17 10:30 Total Bilirubin 0.4 mg/dl (0.2-1.0) 11/30/17 10:30 AST 37 U/L (10-42) 11/30/17 10:30 ALT 39 U/L (10-40) 11/30/17 10:30 Alkaline Phosphatase 82 U/L (32-92) 11/30/17 10:30 Total Protein 7.0 g/dl (6.4-8.3) 11/30/17 10:30 Albumin 3.9 g/dl (3.5-5.0) 11/30/17 10:30 *DC/Admit/Observation/Transfer Diagnosis at time of Disposition: COPD (chronic obstructive pulmonary disease) Qualifiers: COPD type: unspecified COPD Qualified Code(s): J44.9 - Chronic obstructive pulmonary disease, unspecified Pneumonia Qualifiers: Pneumonia type: due to unspecified organism Laterality: right Lung location: unspecified part of lung Qualified Code(s): J18.9 - Pneumonia, unspecified organism - Discharge Dispostion Condition at time of disposition: Stable Admit: Yes - Referrals Referrals: Chacho Davidson MD [Primary Care Provider] - - Patient Instructions - Post Discharge Activity
[2017-11-30] MEDS ORDERED: predniSONE 20 MG TABLET (UD) PO ONE (10:09)
[2017-11-30] MEDS ORDERED: AZITHROMYCIN IVPB 500 MG in DEXTROSE 5%-WATER - 250 ML IVPB ONE (10:09)
[2017-11-30] MEDS ORDERED: CEFTRIAXONE 1,000 MG in DEXTROSE 5%-WATER - 50 ML IVPB ONE (10:09)
[2017-11-30] MEDS ORDERED: cefTRIAXone SODIUM 1 GM VIAL ONE (10:13)
[2017-11-30] MEDS ORDERED: AZITHROMYCIN 500 MG VIAL IVPB ONE (10:13)
[2017-11-30] MEDS ORDERED: predniSONE 20 MG TABLET (UD) ONE (10:13)
[2017-11-30 10:56] LABS: BASO % 0.8 % (0-2.0); EOS % 2.2 % (0-4.5); HEMATOCRIT 43.9 % (35.4-49); HEMOGLOBIN 14.4 GM/dl (11.7-16.9); LYMPH % 23.4 % (8-40); MCH 28.5 pg (25.7-33.7); MCHC 32.7 g/dl (32.0-35.9); MEAN CELL VOLUME 87.1 fl (80-96); MEAN PLT VOLUME 8.3 fl (7.5-11.1); MONO % 12.1 % (3.8-10.2); NEUT % 61.5 % (42.8-82.8); PLATELET COUNT 289 K/MM3 (134-434); RBC 5.04 M/mm3 (4.00-5.60); RDW 12.8 % (11.9-15.9); WHITE BLOOD COUNT 10.6 K/mm3 (4.0-10.8)
[2017-11-30 11:14] LABS: ALBUMIN 3.9 g/dl (3.5-5.0); ALK PHOS 82 U/L (32-92); ANION GAP 8 (8-16); BILIRUBIN,TOTAL 0.4 mg/dl (0.2-1.0); BLOOD UREA NITROGEN 13 mg/dl (7-18); CHLORIDE 98 mmol/L (98-107); CO2 30 mmol/L (22-28); CREATININE 0.5 mg/dl (0.6-1.3); GLUCOSE,RANDOM 137 mg/dl (74-106); POTASSIUM 4.3 mmol/L (3.5-5.1); SGOT/AST 37 U/L (10-42); SGPT/ALT 39 U/L (10-40); SODIUM 136 mmol/L (136-145)
--- NOTE | 2017-11-30 12:43 | HP ---
CHIEF COMPLAINT: cough/shortness of breath PCP: Dr Davidson HISTORY OF PRESENT ILLNESS: Patient is a 77 y/o male with a past medical history of hypertension, pericardial effusion (s/p pericardiocentesis 12/07), diastolic congestive heart failure, hyperlipidemia, and COPD. Patient reports with ongoing and shortness of breath for the past 3 days. He endorses swelling to lower extremities within the past week. Patient reports worsening dyspnea upon exertion at home today and sought evaluation in the emergency department. ER course was notable for: (1) ct of chest w/o contrast: moderate right pleural effusion with atelectatic changes of the lower lobe. (2) lactic acid 2.4 (3) troponin 0.03 Recent Travel: none PAST MEDICAL HISTORY: see hpi PAST SURGICAL HISTORY: see hpi Social History: resides at home alone Smoking: Alcohol: Drugs: Family History: non contributory to this admission Allergies No Known Allergies Allergy (Verified 11/30/17 09:43) HOME MEDICATIONS: Home Medications Medication Instructions Recorded Cholecalciferol (Vitamin D3) 2,000 unit PO DAILY tablet 04/14/17 [Vitamin D3] Furosemide [Lasix -] 20 mg PO DAILY 11/30/17 Metformin HCl [Glucophage] 1,000 mg PO BID 11/30/17 Rosuvastatin Calcium [Crestor] 5 mg PO DAILY 11/30/17 REVIEW OF SYSTEMS CONSTITUTIONAL: Absent: fever, chills, diaphoresis, generalized weakness, malaise, loss of appetite, weight change HEENT: Absent: rhinorrhea, nasal congestion, throat pain, throat swelling, difficulty swallowing, mouth swelling, ear pain, eye pain, visual changes CARDIOVASCULAR: Absent: chest pain, syncope, palpitations, irregular heart rate, lightheadedness , peripheral edema RESPIRATORY: Present: shortness of breath, dyspnea with exertion Absent: cough, orthopnea, wheezing, stridor, hemoptysis GASTROINTESTINAL: Absent: abdominal pain, abdominal distension, nausea, vomiting, diarrhea, constipation, melena, hematochezia GENITOURINARY: Absent: dysuria, frequency, urgency, hesitancy, hematuria, flank pain, genital pain MUSCULOSKELETAL: Absent: myalgia, arthralgia, joint swelling, back pain, neck pain SKIN: Absent: rash, itching, pallor HEMATOLOGIC/IMMUNOLOGIC: Absent: easy bleeding, easy bruising, lymphadenopathy, frequent infections ENDOCRINE: Absent: unexplained weight gain, unexplained weight loss, heat intolerance, cold intolerance NEUROLOGIC: Absent: headache, focal weakness or paresthesias, dizziness, unsteady gait, seizure, mental status changes, bladder or bowel incontinence PSYCHIATRIC: Absent: anxiety, depression, suicidal or homicidal ideation, hallucinations. PHYSICAL EXAMINATION Vital Signs - 24 hr 11/30/17 11/30/17 11/30/17 09:40 11:01 11:15 Temperature 97.8 F Pulse Rate 89 Pulse Rate [ 89 Apical] Respiratory 20 20 Rate Blood Pressure 136/86 Blood Pressure 134/74 [Left Arm] O2 Sat by Pulse 95 93 L 93 L Oximetry (%) 11/30/17 11:55 Temperature Pulse Rate 91 H Pulse Rate [ Apical] Respiratory Rate Blood Pressure Blood Pressure [Left Arm] O2 Sat by Pulse 93 L Oximetry (%) GENERAL: Awake, alert, and fully oriented, in no acute distress. HEAD: Normal with no signs of trauma. EYES: Pupils equal, round and reactive to light, extraocular movements intact, sclera anicteric, conjunctiva clear. No lid lag. EARS, NOSE, THROAT: Ears normal, nares patent, oropharynx clear without exudates. Moist mucous membranes. NECK: Normal range of motion, supple without lymphadenopathy, JVD, or masses. LUNGS: Breath sounds equal, rales noted to right apex and base, crackle to left base. No wheezes, No accessory muscle use. HEART: Regular rate and rhythm, normal S1 and S2 without murmur, rub or gallop. ABDOMEN: Soft, nontender, not distended, normoactive bowel sounds, no guarding, no rebound, no masses. No hepatomegaly or splenomegaly. MUSCULOSKELETAL: Normal range of motion at all joints. No bony deformities or tenderness. No CVA tenderness. UPPER EXTREMITIES: 2+ pulses, warm, well-perfused. No cyanosis. No clubbing. No peripheral edema. LOWER EXTREMITIES: 2+ pulses, warm, well-perfused. No calf tenderness. + 2 billateral peripheral edema. NEUROLOGICAL: Cranial nerves II-XII intact. Normal speech. Normal gait. PSYCHIATRIC: Cooperative. Good eye contact. Appropriate mood and affect. SKIN: Warm, dry, normal turgor, no rashes or lesions noted, normal capillary refill. Laboratory Results - last 24 hr 11/30/17 11/30/17 11/30/17 10:30 10:30 10:30 WBC 10.6 RBC 5.04 Hgb 14.4 Hct 43.9 MCV 87.1 MCH 28.5 MCHC 32.7 RDW 12.8 Plt Count 289 MPV 8.3 D Neutrophils % 61.5 Lymphocytes % 23.4 Monocytes % 12.1 H Eosinophils % 2.2 Basophils % 0.8 D Sodium 136 Potassium 4.3 Chloride 98 Carbon Dioxide 30 H Anion Gap 8 BUN 13 D Creatinine 0.5 L D Creat Clearance w eGFR > 60 Random Glucose 137 H D Lactic Acid 2.4 H* Calcium 9.0 Total Bilirubin 0.4 AST 37 ALT 39 Alkaline Phosphatase 82 Total Protein 7.0 Albumin 3.9 ASSESSMENT/PLAN: 1) cardiovascular diastolic congestive heart failure - echo reviewed from 09/10/17, ef 60%, grade I diastolic dyfunction - BNP 104.3, however, rales and edema noted on exam, lasix 40mg IV x 1 - strict i/o and daily weight hypertension - no home medications, b/p at goal, strict b/p monitoring 2) pulm pleural effusion - ct of chest reviewed, moderate right pleural effusion noted, appreciate pulmonary input for thorancentesis - continue zithromax and rocephin for empiric coverage copd - no wheezing noted on exam, continue symbicort, with standing duonebs 3) endo DM - hold meformin secondary to lactic acidosis, start fingersticks achs with regular insulin sliding scale - pending hgb a1c f/e/n - diabetic/low sodium diet - replete lytes prn ppx - lovenox - pepcid - scd dispo: requires inpatient admission Visit type - Emergency Visit Emergency Visit: Yes ED Registration Date: 11/30/17 Care time: The patient presented to the Emergency Department on the above date and was hospitalized for further evaluation of their emergent condition. - New Patient This patient is new to me today: Yes Date on this admission: 12/01/17 - Critical Care Critical Care patient: No Hospitalist Screening - Colonoscopy Questionnaire Colonoscopy Questionnaire: Colonoscopy Questionnaire - Patient: 50 - 75 years old and never had a screening colonoscopy: No History of colon or rectal polyps, or CA: No History of IBD, Crohn's disease or UC: No History of abdominal radiation therapy as a child: No - Relative: 1 with colon or rectal CA, or polyps at age 60 or younger: No Colon or rectal CA diagnosed at age 45 or younger: No Multiple relatives with colon or rectal CA: No - Outcome: Screening Result: Negative Screen
[2017-11-30] MEDS ORDERED: ALBUTEROL SO4 0.083% IH SOL 2.5 MG/3 ML VIAL.NEB. NEB PRN (12:51)
[2017-11-30] MEDS ORDERED: ACETAMINOPHEN 325 MG TABLET (FP) PO PRN (12:52)
[2017-11-30] MEDS ORDERED: MELATONIN 5 MG TABLETS PO PRN (12:53)
[2017-11-30 12:56] LABS: URINE APPEARANCE Clear; URINE BILIRUBIN 1+ (NEGATIVE); URINE BLOOD Negative (NEGATIVE); URINE GLUCOSE (UA) Negative (NEGATIVE); URINE KETONE 1+ (NEGATIVE); URINE LEUK ESTERASE Negative (NEGATIVE); URINE NITRITE Negative (NEGATIVE)
[2017-11-30 13:00] LABS: URINE PROTEIN 1+ (NEGATIVE)
[2017-11-30 13:01] LABS: ACTIVATED PTT 25.8 SECONDS (24.0-38.9)
[2017-11-30 13:01] LABS: URINE COLOR DK YELLOW
[2017-11-30 13:05] LABS: INR 1.14 (0.82-1.09); PROTHROMBIN TIME (PATIENT) 12.7 SEC (10.2-13.0)
[2017-11-30 14:47] VITALS: BMI 37.8
[2017-11-30] MEDS ORDERED: FUROSEMIDE 40 MG/4 ML INJECTABLE VIAL IVPUSH ONE (15:11)
[2017-11-30] MEDS: ALBUTEROL SO4 2.5/IPRATROPIUM 0.5 INH SOL 3 ML VIAL.NEB. NEB SCH ×2 (16:18→21:39)
[2017-11-30] MEDS: ENOXAPARIN NA (PORCINE) 40 MG/0.4 ML DISP.SYRIN SQ SCH (16:19)
[2017-11-30] MEDS ORDERED: INSULIN SLIDING SCALE (NOVOLOG) 1 VIAL SQ SCH (16:30)
[2017-11-30] MEDS: INSULIN SLIDING SCALE (NOVOLOG) 1 VIAL SQ SCH ×2 (16:54→21:38)
[2017-11-30 18:40] LABS: EPI CELLS FEW /HPF; URINE BACTERIA FEW /hpf (NEGATIVE); URINE WBC 0-2 (0-2)
--- NOTE | 2017-11-30 18:53 | CON.CARD ---
Consult Consult Specialty:: Cardiology Referred by:: Hospitalist Reason for Consultation:: Cardiac evaluation - History of Present Illness Chief Complaint: Shortness of breath and productive cough History of Present Illness: Patient is a 77 year old male previously seen by us with underlying history of COPD, previous pericardial effusion requiring pericardial window who presents with increased shortness of breath and productive cough with brownish sputum for past 3 days. Patient also reports pedal edema. He denies chest pain or palpitations. He denies paroxysmal nocturnal dyspnea or orthopnea. He denies fever or chills. He denies nausea, vomiting, diarrhea or abdominal pain. He denies headache or lightheadedness. PMD: Dr. Chacho Davidson - History Source History Provided By: Patient, Medical Record Limitations to Obtaining History: No Limitations - Past Medical History Cardio/Vascular: Yes: Other (Pericardial effusion) Pulmonary: Yes: COPD Musculoskeletal: Yes: Bursitis, Chronic low back pain - Past Surgical History Past Surgical History: Yes: None - Alcohol/Substance Use Hx Alcohol Use: Yes (Social) History of Substance Use: reports: None - Smoking History Smoking history: Former smoker Have you smoked in the past 12 months: No Aproximately how many cigarettes per day: 1 If you are a former smoker, when did you quit?: 2 YEARS AGO - Social History ADL: Independent 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 History of Recent Travel: No Home Medications - Allergies Allergies/Adverse Reactions: Allergies Allergy/AdvReac Type Severity Reaction Status Date / Time No Known Allergies Allergy Verified 11/30/17 09:43 - Home Medications Home Medications: Ambulatory Orders Cholecalciferol (Vitamin D3) [Vitamin D3] 2,000 unit PO DAILY tablet 04/14/17 Furosemide [Lasix -] 20 mg PO DAILY 11/30/17 Metformin HCl [Glucophage] 1,000 mg PO BID 11/30/17 Rosuvastatin Calcium [Crestor] 5 mg PO DAILY 11/30/17 Family Disease History - Family Disease History Other Family History: COPD Review of Systems - Review of Systems Constitutional: denies: Chills, Fever Cardiovascular: reports: Shortness of Breath. denies: Chest Pain, Palpitations Respiratory: reports: Cough, SOB, SOB on Exertion. denies: Hemoptysis, Orthopnea, PND Gastrointestinal: denies: Abdominal Pain, Constipation, Diarrhea, Melena, Nausea , Rectal Bleeding, Vomiting Genitourinary: denies: Dysuria, Hematuria Musculoskeletal: denies: Joint Pain Neurological: denies: Dizziness, Headache, Seizure, Syncope, Weakness Vital Signs: Vital Signs Temperature 98.4 F 11/30/17 14:28 Pulse Rate 95 H 11/30/17 14:28 Respiratory Rate 20 11/30/17 14:28 Blood Pressure 136/74 11/30/17 14:28 O2 Sat by Pulse Oximetry (%) 96 11/30/17 14:28 Constitutional: Yes: Well Nourished Eyes: Yes: PERRL HENT: Yes: Atraumatic Neck: Yes: Supple Respiratory: Yes: Diminished Gastrointestinal: Yes: Normal Bowel Sounds, Soft, Abdomen, Obese. No: Tenderness Cardiovascular: Yes: Regular Rate and Rhythm JVD: No Carotid Bruit: No PMI: Non-Displaced Heart Sounds: Yes: S1, S2. No: Gallop Edema: Yes Edema: LLE: Trace, RLE: Trace - Other Data Labs, Other Data: CBC, BMP 11/30/17 10:30 11/30/17 10:30 INR, PTT INR 1.14 (0.82-1.09) 11/30/17 10:30 Troponin, BNP 11/30/17 11/30/17 10:30 13:05 Troponin I < 0.03 B-Natriuretic Peptide 104.35 Laboratory Results - last 24 hr 11/30/17 11/30/17 11/30/17 10:30 10:30 10:30 WBC 10.6 RBC 5.04 Hgb 14.4 Hct 43.9 MCV 87.1 MCH 28.5 MCHC 32.7 RDW 12.8 Plt Count 289 MPV 8.3 D Neutrophils % 61.5 Lymphocytes % 23.4 Monocytes % 12.1 H Eosinophils % 2.2 Basophils % 0.8 D PT with INR 12.7 INR 1.14 PTT (Actin FS) 25.8 L Sodium 136 Potassium 4.3 Chloride 98 Carbon Dioxide 30 H Anion Gap 8 BUN 13 D Creatinine 0.5 L D Creat Clearance w eGFR > 60 POC Glucometer Random Glucose 137 H D Hemoglobin A1c % Lactic Acid Calcium 9.0 Total Bilirubin 0.4 AST 37 ALT 39 Alkaline Phosphatase 82 Troponin I B-Natriuretic Peptide Total Protein 7.0 Albumin 3.9 Urine Color Urine Appearance Urine pH Ur Specific [place] Urine Protein Urine Glucose (UA) Urine Ketones Urine Blood Urine Nitrite Urine Bilirubin Urine Urobilinogen Ur Leukocyte Esterase Urine RBC Urine WBC Ur Epithelial Cells Urine Bacteria 11/30/17 11/30/17 11/30/17 10:30 10:30 12:40 WBC RBC Hgb Hct MCV MCH MCHC RDW Plt Count MPV Neutrophils % Lymphocytes % Monocytes % Eosinophils % Basophils % PT with INR INR PTT (Actin FS) Sodium Potassium Chloride Carbon Dioxide Anion Gap BUN Creatinine Creat Clearance w eGFR POC Glucometer Random Glucose Hemoglobin A1c % Lactic Acid 2.4 H* Calcium Total Bilirubin AST ALT Alkaline Phosphatase Troponin I < 0.03 B-Natriuretic Peptide Total Protein Albumin Urine Color Dk yellow Urine Appearance Clear Urine pH 6.0 Ur Specific [place] 1.025 Urine Protein 1+ H Urine Glucose (UA) Negative Urine Ketones 1+ H Urine Blood Negative Urine Nitrite Negative Urine Bilirubin 1+ H Urine Urobilinogen 1.0 Ur Leukocyte Esterase Negative Urine RBC 2-3 Urine WBC 0-2 Ur Epithelial Cells Few Urine Bacteria Few Sinus rhythm with APC Imaging - Results Chest X-ray: Report Reviewed (Pleural effusion) Cat Scan: Report Reviewed (Chest CT right pleural effusion) EKG: Report Reviewed Problem List - Problems (1) Pneumonia Code(s): J18.9 - PNEUMONIA, UNSPECIFIED ORGANISM Qualifiers: Pneumonia type: due to unspecified organism Laterality: right Lung location: unspecified part of lung Qualified Code(s): J18.9 - Pneumonia, unspecified organism (2) COPD exacerbation Code(s): J44.1 - CHRONIC OBSTRUCTIVE PULMONARY DISEASE W (ACUTE) EXACERBATION (3) Hyponatremia Code(s): E87.1 - HYPO-OSMOLALITY AND HYPONATREMIA (4) Leukocytosis Code(s): D72.829 - ELEVATED WHITE BLOOD CELL COUNT, UNSPECIFIED (5) Pericardial effusion Code(s): I31.3 - PERICARDIAL EFFUSION (NONINFLAMMATORY) (6) Pleural effusion Code(s): J90 - PLEURAL EFFUSION, NOT ELSEWHERE CLASSIFIED (7) Shortness of breath Code(s): R06.02 - SHORTNESS OF BREATH (8) URI (upper respiratory infection) Code(s): J06.9 - ACUTE UPPER RESPIRATORY INFECTION, UNSPECIFIED Qualifiers: URI type: unspecified URI Qualified Code(s): J06.9 - Acute upper respiratory infection, unspecified (9) Sleep apnea Code(s): G47.30 - SLEEP APNEA, UNSPECIFIED Qualifiers: Sleep apnea type: unspecified type Qualified Code(s): G47.30 - Sleep apnea , unspecified Assessment/Plan 1. COPD exacerbation +/- pneumonia 2. Pleural effusion due to acute on chronic LV diastolic failure 3. History of pericardial effusion s/p pericardial window 4. Obstructive sleep apnea 5. Exogenous obesity 6. Hypercholesterolemia PLAN: 1. Continue empiric antibiotic coverage 2. Continue bronchodilator, O2 and steroid taper 3. Continue Rosuvastatin 4. DVT prophylaxis Further plans are to follow Kevin Monte MD
[2017-11-30] MEDS: BUDESONIDE/FORMETEROL FUMARATE 160/4.5 mcg INHALER IH SCH (21:39)
[2017-11-30] MEDS: FAMOTIDINE 20 MG TABLET PO SCH (21:39)
[2017-12-01] MEDS: INSULIN SLIDING SCALE (NOVOLOG) 1 VIAL SQ SCH ×4 (06:41→22:04)
[2017-12-01] MEDS: ALBUTEROL SO4 2.5/IPRATROPIUM 0.5 INH SOL 3 ML VIAL.NEB. NEB SCH ×4 (08:42→22:04)
[2017-12-01] MEDS ORDERED: PT OWN MED DRAWER 7, Y5N ONE (09:03)
[2017-12-01] MEDS: methylPREDNISolone NA SUCC 40 MG/1 ML VIAL IVPUSH SCH ×2 (09:04→17:30)
[2017-12-01] MEDS: FAMOTIDINE 20 MG TABLET PO SCH ×2 (09:04→22:03)
[2017-12-01] MEDS: CHOLECALCIFEROL (VITAMIN D3) 1,000 UNIT TABLET (FP) PO SCH (09:05)
[2017-12-01] MEDS: BUDESONIDE/FORMETEROL FUMARATE 160/4.5 mcg INHALER IH SCH ×2 (09:05→22:03)
[2017-12-01] MEDS: AZITHROMYCIN IVPB 250 MG in DEXTROSE 5%-WATER - 250 ML IVPB SCH (09:05)
[2017-12-01] MEDS: ENOXAPARIN NA (PORCINE) 40 MG/0.4 ML DISP.SYRIN SQ SCH (09:05)
[2017-12-01] MEDS: ROSUVASTATIN CA 5 MG TABLET (FP) PO SCH (09:06)
[2017-12-01] MEDS: CEFTRIAXONE 1 G/50 ML PREMIX 50 ML IVPB SCH (09:06)
--- NOTE | 2017-12-01 09:59 | PN ---
Physical Exam: SUBJECTIVE: Patient seen and examined, reports feeling better,does report some dyspnea upon exertion. OBJECTIVE:Patient is a 77 y/o male with a past medical history of hypertension, pericardial effusion (s/p pericardiocentesis 12/07), diastolic congestive heart failure, hyperlipidemia, and COPD. patient was admitted from the emergency department for emergent condition. Vital Signs Period Temp Pulse Resp BP Sys/Martinez Pulse Ox Last 24 Hr 97.5 F-98.4 F 88-95 20-20 123-141/70-74 93-98 GENERAL: The patient is awake, alert, and fully oriented, in no acute distress. HEAD: Normal with no signs of trauma. EYES: PERRL, extraocular movements intact, sclera anicteric, conjunctiva clear. No ptosis. ENT: Ears normal, nares patent, oropharynx clear without exudates, moist mucous membranes. NECK: Trachea midline, full range of motion, supple. LUNGS: Breath sounds equal, slight inspiratory wheeze noted to apexes, right apex and base, significantly diminished, clear to left apex and crackles to left base, no wheezes, no accessory muscle use. HEART: Regular rate and rhythm, S1, S2 without murmur, rub or gallop. ABDOMEN: Soft, nontender, nondistended, normoactive bowel sounds, no guarding, no rebound, no hepatosplenomegaly, no masses. EXTREMITIES: 2+ pulses, warm, well-perfused, no edema. NEUROLOGICAL: Cranial nerves II through XII grossly intact. Normal speech, gait not observed. PSYCH: Normal mood, normal affect. SKIN: Warm, dry, normal turgor, no rashes or lesions noted Laboratory Results - last 24 hr 11/30/17 11/30/17 11/30/17 10:30 10:30 10:30 WBC 10.6 RBC 5.04 Hgb 14.4 Hct 43.9 MCV 87.1 MCH 28.5 MCHC 32.7 RDW 12.8 Plt Count 289 MPV 8.3 D Neutrophils % 61.5 Lymphocytes % 23.4 Monocytes % 12.1 H Eosinophils % 2.2 Basophils % 0.8 D PT with INR 12.7 INR 1.14 PTT (Actin FS) 25.8 L Sodium 136 Potassium 4.3 Chloride 98 Carbon Dioxide 30 H Anion Gap 8 BUN 13 D Creatinine 0.5 L D Creat Clearance w eGFR > 60 POC Glucometer Random Glucose 137 H D Hemoglobin A1c % Lactic Acid Calcium 9.0 Total Bilirubin 0.4 AST 37 ALT 39 Alkaline Phosphatase 82 Troponin I B-Natriuretic Peptide Total Protein 7.0 Albumin 3.9 Urine Color Urine Appearance Urine pH Ur Specific [place] Urine Protein Urine Glucose (UA) Urine Ketones Urine Blood Urine Nitrite Urine Bilirubin Urine Urobilinogen Ur Leukocyte Esterase Urine RBC Urine WBC Ur Epithelial Cells Urine Bacteria 11/30/17 11/30/17 11/30/17 10:30 10:30 12:40 WBC RBC Hgb Hct MCV MCH MCHC RDW Plt Count MPV Neutrophils % Lymphocytes % Monocytes % Eosinophils % Basophils % PT with INR INR PTT (Actin FS) Sodium Potassium Chloride Carbon Dioxide Anion Gap BUN Creatinine Creat Clearance w eGFR POC Glucometer Random Glucose Hemoglobin A1c % Lactic Acid 2.4 H* Calcium Total Bilirubin AST ALT Alkaline Phosphatase Troponin I < 0.03 B-Natriuretic Peptide Total Protein Albumin Urine Color Dk yellow Urine Appearance Clear Urine pH 6.0 Ur Specific [place] 1.025 Urine Protein 1+ H Urine Glucose (UA) Negative Urine Ketones 1+ H Urine Blood Negative Urine Nitrite Negative Urine Bilirubin 1+ H Urine Urobilinogen 1.0 Ur Leukocyte Esterase Negative Urine RBC 2-3 Urine WBC 0-2 Ur Epithelial Cells Few Urine Bacteria Few 11/30/17 11/30/17 11/30/17 13:05 13:05 13:05 WBC RBC Hgb Hct MCV MCH MCHC RDW Plt Count MPV Neutrophils % Lymphocytes % Monocytes % Eosinophils % Basophils % PT with INR INR PTT (Actin FS) Sodium Potassium Chloride Carbon Dioxide Anion Gap BUN Creatinine Creat Clearance w eGFR POC Glucometer Random Glucose Hemoglobin A1c % 6.7 H D Lactic Acid 4.1 H* Calcium Total Bilirubin AST ALT Alkaline Phosphatase Troponin I B-Natriuretic Peptide 104.35 Total Protein Albumin Urine Color Urine Appearance Urine pH Ur Specific [place] Urine Protein Urine Glucose (UA) Urine Ketones Urine Blood Urine Nitrite Urine Bilirubin Urine Urobilinogen Ur Leukocyte Esterase Urine RBC Urine WBC Ur Epithelial Cells Urine Bacteria 11/30/17 11/30/17 12/01/17 16:25 21:35 06:40 WBC RBC Hgb Hct MCV MCH MCHC RDW Plt Count MPV Neutrophils % Lymphocytes % Monocytes % Eosinophils % Basophils % PT with INR INR PTT (Actin FS) Sodium Potassium Chloride Carbon Dioxide Anion Gap BUN Creatinine Creat Clearance w eGFR POC Glucometer 196 169 129 Random Glucose Hemoglobin A1c % Lactic Acid Calcium Total Bilirubin AST ALT Alkaline Phosphatase Troponin I B-Natriuretic Peptide Total Protein Albumin Urine Color Urine Appearance Urine pH Ur Specific [place] Urine Protein Urine Glucose (UA) Urine Ketones Urine Blood Urine Nitrite Urine Bilirubin Urine Urobilinogen Ur Leukocyte Esterase Urine RBC Urine WBC Ur Epithelial Cells Urine Bacteria Active Medications Generic Name Dose Route Start Last Admin Trade Name Carlosq PRN Reason Stop Dose Admin Acetaminophen 650 mg 11/30/17 12:52 Tylenol - PO Q4H PRN FEVER Albuterol Sulfate 1 amp 11/30/17 12:51 Ventolin 0.083% Nebulizer Soln - NEB Q4H PRN SHORT OF BREATH/WHEEZING Albuterol/Ipratropium 1 amp 11/30/17 16:00 12/01/17 08:42 Duoneb - NEB 1 amp RQID MAKSIM Administration Budesonide/Formoterol Fumarate 1 puff 11/30/17 22:00 12/01/17 09:05 Symbicort 160/4.5mcg - IH 1 puff BID MAKSIM Administration Cholecalciferol 2,000 unit 12/01/17 10:00 12/01/17 09:05 Vitamin D3 - PO 2,000 unit DAILY MAKSIM Administration Enoxaparin Sodium 40 mg 11/30/17 16:15 12/01/17 09:05 Lovenox - SQ 40 mg DAILY MAKSIM Administration Famotidine 20 mg 11/30/17 22:00 12/01/17 09:04 Pepcid - PO 20 mg BID MAKSIM Administration CEFTRIAXONE 1 G/50 ML PREMIX 50 mls @ 100 mls/hr 12/01/17 10:00 12/01/17 09: 06 Ceftriaxone 1 Gm-D5w Bag IVPB 100 mls/hr DAILY MAKSIM Administration Azithromycin 250 mg/ Dextrose 250 mls @ 250 mls/hr 12/01/17 10:00 12/01/17 09 :05 IVPB 250 mls/hr DAILY MAKSIM Administration Insulin Aspart 1 vial 11/30/17 16:30 12/01/17 06:41 Novolog Vial Sliding Scale - SQ Not Given ACHS MAKSIM Protocol Melatonin 5 mg 11/30/17 12:53 Melatonin PO HS PRN INSOMNIA Methylprednisolone Sodium Succinate 40 mg 12/01/17 10:00 12/01/17 09:04 Solu-Medrol - IVPUSH 40 mg Q8H-IV MAKSIM Administration Rosuvastatin Calcium 5 mg 12/01/17 10:00 12/01/17 09:06 Crestor - PO 5 mg DAILY MAKSIM Administration ASSESSMENT/PLAN: 1) cardiovascular diastolic congestive heart failure - echo reviewed from 09/10/17, ef 60%, grade I diastolic dyfunction - 2kg weight loss noted after lasix 40mg iv x 1 - strict i/o and daily weight hypertension - no home medications, b/p at goal, strict b/p monitoring 2) pulm pleural effusion - ct of chest reviewed, moderate right pleural effusion noted, appreciate pulmonary input for thorancentesis - continue zithromax and rocephin for empiric coverage copd - start solumedrol 40mg tid, continue symbicort, with standing duonebs 3) endo DM - continue to hold meformin secondary to lactic acidosis, continue fingersticks achs with regular insulin sliding scale - pending hgb a1c f/e/n - diabetic/low sodium diet - replete lytes prn ppx - lovenox - pepcid - scd dispo: requires inpatient admission Visit type - Emergency Visit Emergency Visit: Yes ED Registration Date: 11/30/17 Care time: The patient presented to the Emergency Department on the above date and was hospitalized for further evaluation of their emergent condition. - New Patient This patient is new to me today: No - Critical Care Critical Care patient: No - Discharge Referral Referred to [facility] No
[2017-12-01 10:04] LABS: ALBUMIN 3.5 g/dl (3.5-5.0); ALK PHOS 68 U/L (32-92); ANION GAP 4 (8-16); BLOOD UREA NITROGEN 18 mg/dl (7-18); CALCIUM 8.6 mg/dl (8.4-10.2); CHLORIDE 99 mmol/L (98-107); CO2 32 mmol/L (22-28); CREATININE 0.8 mg/dl (0.6-1.3); GLUCOSE,RANDOM 194 mg/dl (74-106); MAGNESIUM 1.7 mg/dL (1.8-2.4); PHOSPHOROUS 3.2 mg/dl (2.5-4.6); POTASSIUM 3.7 mmol/L (3.5-5.1); SGOT/AST 28 U/L (10-42); SGPT/ALT 34 U/L (10-40); SODIUM 135 mmol/L (136-145); TOT PROT 6.5 g/dl (6.4-8.3)
[2017-12-01 10:24] LABS: BASO % 0.3 % (0-2.0); EOS % 0.8 % (0-4.5); HEMATOCRIT 38.9 % (35.4-49); HEMOGLOBIN 13.2 GM/dl (11.7-16.9); LYMPH % 21.4 % (8-40); MCH 29.7 pg (25.7-33.7); MEAN CELL VOLUME 87.5 fl (80-96); MEAN PLT VOLUME 8.7 fl (7.5-11.1); MONO % 8.5 % (3.8-10.2); PLATELET COUNT 289 K/MM3 (134-434); RBC 4.44 M/mm3 (4.00-5.60); RDW 13.1 % (11.9-15.9); WHITE BLOOD COUNT 8.8 K/mm3 (4.0-10.8)
[2017-12-01 10:30] LABS: BILIRUBIN,TOTAL 0.5 mg/dl (0.2-1.0)
--- NOTE | 2017-12-01 10:39 | EKG ---
Test Reason : Blood Pressure : / mmHG Vent. Rate : 086 BPM Atrial Rate : 086 BPM P-R Int : 116 ms QRS Dur : 076 ms QT Int : 364 ms P-R-T Axes : -03 -05 029 degrees QTc Int : 435 ms SINUS RHYTHM WITH PREMATURE ATRIAL COMPLEXES OTHERWISE NORMAL ECG WHEN COMPARED WITH ECG OF 12-SEP-2016 05:42, PREMATURE ATRIAL COMPLEXES ARE NOW PRESENT ST NO LONGER DEPRESSED IN LATERAL LEADS T WAVE INVERSION NO LONGER EVIDENT IN LATERAL LEADS Confirmed by MD Drake, Kiet ([id number]) on 12/01/2017 10:39:02 AM Referred By: DEMETRIA Confirmed By:Kiet Juan MD
[2017-12-01] MEDS ORDERED: MAGNESIUM SULFATE 2 GM in SODIUM CHLORIDE 100 ML IVPB ONE (10:44)
[2017-12-01] MEDS ORDERED: MAGNESIUM SULFATE IN WATER 2 GM/50 ML IVPB IVPB ONE (11:15)
--- NOTE | 2017-12-01 12:14 | PN ---
Progress Note, Physician Chief Complaint: Sitting on bed Feels better History of Present Illness: Patient was seen and examined. Awake and alert. Chart was reviewed Denies chest pain or palpitation Less SOB and cough - Current Medication List Current Medications: Active Medications Acetaminophen (Tylenol -) 650 mg PO Q4H PRN PRN Reason: FEVER Albuterol Sulfate (Ventolin 0.083% Nebulizer Soln -) 1 amp NEB Q4H PRN PRN Reason: SHORT OF BREATH/WHEEZING Albuterol/Ipratropium (Duoneb -) 1 amp NEB RQID [facility] Last Admin: 12/01/17 08:42 Dose: 1 amp Budesonide/Formoterol Fumarate (Symbicort 160/4.5mcg -) 1 puff IH BID [facility] Last Admin: 12/01/17 09:05 Dose: 1 puff Cholecalciferol (Vitamin D3 -) 2,000 unit PO DAILY [facility] Last Admin: 12/01/17 09:05 Dose: 2,000 unit Enoxaparin Sodium (Lovenox -) 40 mg SQ DAILY [facility] Last Admin: 12/01/17 09:05 Dose: 40 mg Famotidine (Pepcid -) 20 mg PO BID [facility] Last Admin: 12/01/17 09:04 Dose: 20 mg CEFTRIAXONE 1 G/50 ML PREMIX (Ceftriaxone 1 Gm-D5w Bag) 50 mls @ 100 mls/hr IVPB DAILY [facility] Last Admin: 12/01/17 09:06 Dose: 100 mls/hr Azithromycin 250 mg/ Dextrose 250 mls @ 250 mls/hr IVPB DAILY [facility] Last Admin: 12/01/17 09:05 Dose: 250 mls/hr Magnesium Sulfate (Magnesium Sulf 2 G/50 Ml Bag) 2 gm in 50 mls @ 50 mls/hr IVPB ONCE ONE Stop: 12/01/17 12:14 Insulin Aspart (Novolog Vial Sliding Scale -) 1 vial SQ ACHS MAKSIM PRN Reason: Protocol Last Admin: 12/01/17 06:41 Dose: Not Given Melatonin (Melatonin) 5 mg PO HS PRN PRN Reason: INSOMNIA Methylprednisolone Sodium Succinate (Solu-Medrol -) 40 mg IVPUSH Q8H-IV [facility] Last Admin: 12/01/17 09:04 Dose: 40 mg Rosuvastatin Calcium (Crestor -) 5 mg PO DAILY [facility] Last Admin: 12/01/17 09:06 Dose: 5 mg - Objective Vital Signs: Vital Signs Temperature 98 F 12/01/17 11:00 Pulse Rate 78 12/01/17 11:00 Respiratory Rate 20 12/01/17 11:00 Blood Pressure 128/74 12/01/17 11:00 O2 Sat by Pulse Oximetry (%) 96 12/01/17 09:00 Neck: Yes: Supple Cardiovascular: Yes: Regular Rate and Rhythm, S1, S2 Respiratory: Yes: Diminished Gastrointestinal: Yes: Normal Bowel Sounds, Soft, Abdomen, Obese. No: Tenderness Edema: Yes Edema: LLE: Trace, RLE: Trace Labs: CBC, BMP 12/01/17 09:05 12/01/17 09:05 INR, PTT INR 1.14 (0.82-1.09) 11/30/17 10:30 Problem List - Problems (1) Pneumonia Code(s): J18.9 - PNEUMONIA, UNSPECIFIED ORGANISM Qualifiers: Qualified Code(s): J18.9 - Pneumonia, unspecified organism (2) COPD exacerbation Code(s): J44.1 - CHRONIC OBSTRUCTIVE PULMONARY DISEASE W (ACUTE) EXACERBATION (3) Hyponatremia Code(s): E87.1 - HYPO-OSMOLALITY AND HYPONATREMIA (4) Leukocytosis Code(s): D72.829 - ELEVATED WHITE BLOOD CELL COUNT, UNSPECIFIED (5) Pericardial effusion Code(s): I31.3 - PERICARDIAL EFFUSION (NONINFLAMMATORY) (6) Pleural effusion Code(s): J90 - PLEURAL EFFUSION, NOT ELSEWHERE CLASSIFIED (7) Shortness of breath Code(s): R06.02 - SHORTNESS OF BREATH (8) URI (upper respiratory infection) Code(s): J06.9 - ACUTE UPPER RESPIRATORY INFECTION, UNSPECIFIED Qualifiers: Qualified Code(s): J06.9 - Acute upper respiratory infection, unspecified (9) Sleep apnea Code(s): G47.30 - SLEEP APNEA, UNSPECIFIED Qualifiers: Qualified Code(s): G47.30 - Sleep apnea, unspecified Assessment/Plan 1. COPD exacerbation +/- pneumonia 2. Pleural effusion due to acute on chronic LV diastolic failure 3. History of pericardial effusion s/p pericardial window 4. Obstructive sleep apnea 5. Exogenous obesity 6. Hypercholesterolemia PLAN: 1. Continue empiric antibiotic coverage 2. Continue bronchodilator, O2 and steroid taper 3. Continue Rosuvastatin 4. DVT prophylaxis 5. Echocardiography reviewed from August of this year - normal LV systolic function, diastolic dysfunction Further plans are to follow Kevin Monte MD
[2017-12-01] MEDS ORDERED: INSULIN (NOVOLOG) ASPART 100 UNITS/ML 10ML VIAL ONE ×3 (12:25→21:55)
[2017-12-01] MEDS ORDERED: FUROSEMIDE 40 MG/4 ML INJECTABLE VIAL IVPUSH ONE (12:45)
--- NOTE | 2017-12-01 18:23 | CON.PULM ---
Consult Consult Specialty:: PULMONARY Referred by:: ERIC Reason for Consultation:: SOB - History of Present Illness Chief Complaint: SOB/COUGH/YELLOW SPUTUM History of Present Illness: Patient is a 77 y/o male with a past medical history of hypertension, pericardial effusion (s/p pericardiocentesis 12/07), diastolic congestive heart failure, hyperlipidemia, and COPD h/o right pleural effusion in past. Patient reports shortness of breath for the past 3 days cough with yellow mucous no fever or chilss.. He states he has had swelling to lower extremities within the past week. Patient reports worsening dyspnea upon exertion and sought evaluation in the emergency department. - History Source History Provided By: Patient, Medical Record Limitations to Obtaining History: No Limitations - Past Medical History CHIEF DEPUTY: No: Alzheimer's Cardio/Vascular: Yes: CHF, Other (Pericardial effusion). No: AFIB Pulmonary: Yes: COPD, Other (pleural effusion) Gastrointestinal: No: Ascites Hepatobiliary: No: Cirrhosis Renal/: No: Renal Failure Heme/Onc: No: Anemia Musculoskeletal: Yes: Bursitis, Chronic low back pain - Past Surgical History Additional Surgical History: pericardial window - Alcohol/Substance Use Hx Alcohol Use: Yes (Social) History of Substance Use: reports: None - Smoking History Smoking history: Former smoker Have you smoked in the past 12 months: No Aproximately how many cigarettes per day: 1 If you are a former smoker, when did you quit?: 2 YEARS AGO - Social History ADL: Independent 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 Place of : Other History of Recent Travel: No Home Medications - Allergies Allergies/Adverse Reactions: Allergies Allergy/AdvReac Type Severity Reaction Status Date / Time No Known Allergies Allergy Verified 11/30/17 09:43 - Home Medications Home Medications: Ambulatory Orders Cholecalciferol (Vitamin D3) [Vitamin D3] 2,000 unit PO DAILY tablet 04/14/17 Furosemide [Lasix -] 20 mg PO DAILY 11/30/17 Metformin HCl [Glucophage] 1,000 mg PO BID 11/30/17 Rosuvastatin Calcium [Crestor] 5 mg PO DAILY 11/30/17 Family Disease History - Family Disease History Family History: Unremarkable Other Family History: COPD Review of Systems - Review of Systems Constitutional: denies: Fever Eyes: denies: Blurred Vision HENT: denies: Difficult Swallowing Neck: denies: Decreased ROM Cardiovascular: reports: Shortness of Breath. denies: Chest Pain Respiratory: reports: Cough, Exercise Intolerance, SOB, SOB on Exertion. denies : Hemoptysis, Wheezing Gastrointestinal: denies: Abdominal Pain Genitourinary: denies: Burning Physical Exam Vital Sings: Vital Signs Temperature 97.8 F 12/01/17 14:01 Pulse Rate 91 H 12/01/17 14:01 Respiratory Rate 20 12/01/17 14:01 Blood Pressure 131/69 12/01/17 14:01 O2 Sat by Pulse Oximetry (%) 97 12/01/17 14:01 Constitutional: Yes: Calm Eyes: Yes: EOM Intact HENT: Yes: Normocephalic Neck: Yes: Trachea Midline Cardiovascular: Yes: Regular Rate and Rhythm Respiratory: Yes: Other (diminished breath sounds and dullness to percussion right base extending up 1/4 lung field) Gastrointestinal: Yes: Normal Bowel Sounds, Abdomen, Obese Edema: LLE: 1+, RLE: 1+ Neurological: Yes: Alert Labs: CBC, BMP 12/01/17 09:05 12/01/17 09:05 rest reviewed Imaging - Results Chest X-ray: Report Reviewed, Image Reviewed Cat Scan: Report Reviewed, Image Reviewed Problem List - Problems (1) Pneumonia Code(s): J18.9 - PNEUMONIA, UNSPECIFIED ORGANISM Qualifiers: Pneumonia type: due to unspecified organism Laterality: right Lung location: unspecified part of lung Qualified Code(s): J18.9 - Pneumonia, unspecified organism (2) COPD (chronic obstructive pulmonary disease) Code(s): J44.9 - CHRONIC OBSTRUCTIVE PULMONARY DISEASE, UNSPECIFIED Qualifiers: COPD type: unspecified COPD Qualified Code(s): J44.9 - Chronic obstructive pulmonary disease, unspecified (3) Obesity Code(s): E66.9 - OBESITY, UNSPECIFIED (4) Pericardial effusion Code(s): I31.3 - PERICARDIAL EFFUSION (NONINFLAMMATORY) (5) Pleural effusion Code(s): J90 - PLEURAL EFFUSION, NOT ELSEWHERE CLASSIFIED (6) Shortness of breath Code(s): R06.02 - SHORTNESS OF BREATH (7) Sleep apnea Code(s): G47.30 - SLEEP APNEA, UNSPECIFIED Qualifiers: Sleep apnea type: unspecified type Qualified Code(s): G47.30 - Sleep apnea , unspecified Assessment/Plan IMP WORSENING RIGHT PLEURAL EFFUSION WITH RIGHT LOWER LOBE INFILTRATE H/O PERICARDIAL EFFUSION REQUIRING WINDOW ETIOLOGY OF WHICH IS UNCLEAR OSAS/M.OBESITY COPD AGREE WITH ANTIBIOTICS/O2 SUPPLEMENTATION/.BRONCHODILATORS TO FACILITATE MUCOUS CLEARANCE TAPER STEROIDS ECHO FROM 08/2017 REVIEWED MAY CONSIDER REPEAT IF CARDIO AGREES WILL FOLLOW Zita FAY MD
[2017-12-02] MEDS: methylPREDNISolone NA SUCC 40 MG/1 ML VIAL IVPUSH SCH ×3 (01:26→17:58)
[2017-12-02] MEDS: INSULIN SLIDING SCALE (NOVOLOG) 1 VIAL SQ SCH ×4 (06:31→21:50)
[2017-12-02] MEDS: ALBUTEROL SO4 2.5/IPRATROPIUM 0.5 INH SOL 3 ML VIAL.NEB. NEB SCH ×4 (08:40→21:25)
[2017-12-02 09:04] LABS: BASO % 0.4 % (0-2.0); EOS % 0.1 % (0-4.5); HEMOGLOBIN 13.6 GM/dl (11.7-16.9); LYMPH % 9.2 % (8-40); MCH 28.9 pg (25.7-33.7); MCHC 33.2 g/dl (32.0-35.9); MEAN CELL VOLUME 87.1 fl (80-96); MEAN PLT VOLUME 9.1 fl (7.5-11.1); MONO % 4.1 % (3.8-10.2); NEUT % 86.2 % (42.8-82.8); PLATELET COUNT 342 K/MM3 (134-434); RBC 4.71 M/mm3 (4.00-5.60); RDW 12.8 % (11.9-15.9); WHITE BLOOD COUNT 11.5 K/mm3 (4.0-10.8)
--- NOTE | 2017-12-02 09:14 | PN ---
Progress Note, Physician Chief Complaint: Sitting on bed Feels better Receiving pulmonary treatment History of Present Illness: Patient was seen and examined. Awake and alert. Chart was reviewed Denies chest pain or palpitation Less SOB and cough Pulmonary input noted - Current Medication List Current Medications: Active Medications Acetaminophen (Tylenol -) 650 mg PO Q4H PRN PRN Reason: FEVER Last Admin: 12/01/17 22:03 Dose: 650 mg Albuterol Sulfate (Ventolin 0.083% Nebulizer Soln -) 1 amp NEB Q4H PRN PRN Reason: SHORT OF BREATH/WHEEZING Albuterol/Ipratropium (Duoneb -) 1 amp NEB RQID [facility] Last Admin: 12/01/17 22:04 Dose: 1 amp Budesonide/Formoterol Fumarate (Symbicort 160/4.5mcg -) 1 puff IH BID [facility] Last Admin: 12/01/17 22:03 Dose: 1 puff Cholecalciferol (Vitamin D3 -) 2,000 unit PO DAILY [facility] Last Admin: 12/01/17 09:05 Dose: 2,000 unit Enoxaparin Sodium (Lovenox -) 40 mg SQ DAILY [facility] Last Admin: 12/01/17 09:05 Dose: 40 mg Famotidine (Pepcid -) 20 mg PO BID [facility] Last Admin: 12/01/17 22:03 Dose: 20 mg CEFTRIAXONE 1 G/50 ML PREMIX (Ceftriaxone 1 Gm-D5w Bag) 50 mls @ 100 mls/hr IVPB DAILY [facility] Last Admin: 12/01/17 09:06 Dose: 100 mls/hr Azithromycin 250 mg/ Dextrose 250 mls @ 250 mls/hr IVPB DAILY [facility] Last Admin: 12/01/17 09:05 Dose: 250 mls/hr Insulin Aspart (Novolog Vial Sliding Scale -) 1 vial SQ ACHS [facility] PRN Reason: Protocol Last Admin: 12/02/17 06:31 Dose: 2 unit Melatonin (Melatonin) 5 mg PO HS PRN PRN Reason: INSOMNIA Methylprednisolone Sodium Succinate (Solu-Medrol -) 40 mg IVPUSH Q8H-IV [facility] Last Admin: 12/02/17 01:26 Dose: 40 mg Rosuvastatin Calcium (Crestor -) 5 mg PO DAILY [facility] Last Admin: 12/01/17 09:06 Dose: 5 mg - Objective Vital Signs: Vital Signs Temperature 98.3 F 12/02/17 06:32 Pulse Rate 84 12/02/17 06:32 Respiratory Rate 18 12/02/17 08:48 Blood Pressure 123/74 12/02/17 06:32 O2 Sat by Pulse Oximetry (%) 94 L 12/02/17 08:48 Eyes: Yes: PERRL HENT: Yes: Atraumatic Neck: Yes: Supple Cardiovascular: Yes: Regular Rate and Rhythm, S1, S2 Respiratory: Yes: Diminished Gastrointestinal: Yes: Normal Bowel Sounds, Soft, Abdomen, Obese. No: Tenderness Edema: Yes Edema: LLE: Trace, RLE: Trace Additional Findings/Remarks: - Review of Systems Constitutional: denies: Chills, Fever Cardiovascular: reports: Shortness of Breath. denies: Chest Pain, Palpitations Respiratory: reports: Cough, SOB, SOB on Exertion. denies: Hemoptysis, Orthopnea, PND Gastrointestinal: denies: Abdominal Pain, Constipation, Diarrhea, Melena, Nausea , Rectal Bleeding, Vomiting Genitourinary: denies: Dysuria, Hematuria Musculoskeletal: denies: Joint Pain Neurological: denies: Dizziness, Headache, Seizure, Syncope, Weakness Labs: INR, PTT INR 1.14 (0.82-1.09) 11/30/17 10:30 - ....Imaging Chest X-ray: Report Reviewed (Right pleural effusion) Problem List - Problems (1) Pneumonia Code(s): J18.9 - PNEUMONIA, UNSPECIFIED ORGANISM Qualifiers: Pneumonia type: due to unspecified organism Laterality: right Lung location: unspecified part of lung Qualified Code(s): J18.9 - Pneumonia, unspecified organism (2) COPD exacerbation Code(s): J44.1 - CHRONIC OBSTRUCTIVE PULMONARY DISEASE W (ACUTE) EXACERBATION (3) Hyponatremia Code(s): E87.1 - HYPO-OSMOLALITY AND HYPONATREMIA (4) Leukocytosis Code(s): D72.829 - ELEVATED WHITE BLOOD CELL COUNT, UNSPECIFIED (5) Pericardial effusion Code(s): I31.3 - PERICARDIAL EFFUSION (NONINFLAMMATORY) (6) Pleural effusion Code(s): J90 - PLEURAL EFFUSION, NOT ELSEWHERE CLASSIFIED (7) Shortness of breath Code(s): R06.02 - SHORTNESS OF BREATH (8) URI (upper respiratory infection) Code(s): J06.9 - ACUTE UPPER RESPIRATORY INFECTION, UNSPECIFIED Qualifiers: URI type: unspecified URI Qualified Code(s): J06.9 - Acute upper respiratory infection, unspecified (9) Sleep apnea Code(s): G47.30 - SLEEP APNEA, UNSPECIFIED Qualifiers: Sleep apnea type: unspecified type Qualified Code(s): G47.30 - Sleep apnea , unspecified Assessment/Plan 1. COPD exacerbation +/- pneumonia 2. Pleural effusion due to acute on chronic LV diastolic failure 3. History of pericardial effusion s/p pericardial window 4. Obstructive sleep apnea 5. Exogenous obesity 6. Hypercholesterolemia PLAN: 1. Continue empiric antibiotic coverage 2. Continue bronchodilator, O2 and steroid taper 3. Continue Rosuvastatin 4. DVT prophylaxis 5. Echocardiography reviewed from August of this year - normal LV systolic function, diastolic dysfunction - no need to repeat at this time 6. Diuretics - PO regimen and monitor clinically Further plans are to follow. Attempt to ambulate and observe Kevin Monte MD
[2017-12-02] MEDS: ROSUVASTATIN CA 5 MG TABLET (FP) PO SCH (09:46)
[2017-12-02] MEDS: CHOLECALCIFEROL (VITAMIN D3) 1,000 UNIT TABLET (FP) PO SCH (09:46)
[2017-12-02] MEDS: AZITHROMYCIN IVPB 250 MG in DEXTROSE 5%-WATER - 250 ML IVPB SCH (09:47)
[2017-12-02] MEDS: CEFTRIAXONE 1 G/50 ML PREMIX 50 ML IVPB SCH (09:47)
[2017-12-02] MEDS: ENOXAPARIN NA (PORCINE) 40 MG/0.4 ML DISP.SYRIN SQ SCH (09:47)
[2017-12-02] MEDS: FAMOTIDINE 20 MG TABLET PO SCH ×2 (09:47→21:25)
[2017-12-02] MEDS: BUDESONIDE/FORMETEROL FUMARATE 160/4.5 mcg INHALER IH SCH ×2 (09:51→21:25)
[2017-12-02 09:53] LABS: ANION GAP 7 (8-16); BLOOD UREA NITROGEN 24 mg/dL (7-18); CALCIUM 9.2 mg/dL (8.5-10.1); CHLORIDE 100 mmol/L (98-107); CO2 34 mmol/L (21-32); GLUCOSE,RANDOM 163 mg/dL (74-106); POTASSIUM 4.7 mmol/L (3.5-5.1); SODIUM 141 mmol/L (136-145)
[2017-12-02] MEDS: FUROSEMIDE 40 MG TABLET (FP) PO SCH (09:55)
[2017-12-02 09:58] LABS: CREATININE 0.7 mg/dL (0.7-1.3); MAGNESIUM 2.2 mg/dL (1.8-2.4); PHOSPHOROUS 4.3 mg/dL (2.5-4.9)
--- NOTE | 2017-12-02 13:17 | PN ---
Physical Exam: SUBJECTIVE: Patient seen and examined, reports feeling better, less dyspnea upon exertion, denies any cough OBJECTIVE: Patient is a 77 y/o male with a past medical history of hypertension, pericardial effusion (s/p pericardiocentesis 12/07), diastolic congestive heart failure, hyperlipidemia, and COPD. patient was admitted from the emergency department for acute on chronic diastolic congestive heart failure and copd excerbation. Vital Signs Period Temp Pulse Resp BP Sys/Martinez Pulse Ox Last 24 Hr 97.8 F-98.3 F 80-91 18-20 123-137/69-74 94-97 GENERAL: The patient is awake, alert, and fully oriented, in no acute distress. HEAD: Normal with no signs of trauma. EYES: PERRL, extraocular movements intact, sclera anicteric, conjunctiva clear. No ptosis. ENT: Ears normal, nares patent, oropharynx clear without exudates, moist mucous membranes. NECK: Trachea midline, full range of motion, supple. LUNGS: Breath sounds equal, diminished throughout right apex and base, clear to left apex and base, no wheezes, no crackles, no accessory muscle use. HEART: Regular rate and rhythm, S1, S2 without murmur, rub or gallop. ABDOMEN: Soft, obese, nontender, nondistended, normoactive bowel sounds, no guarding, no rebound, no hepatosplenomegaly, no masses. EXTREMITIES: 2+ pulses, warm, well-perfused, no edema. NEUROLOGICAL: Cranial nerves II through XII grossly intact. Normal speech, gait not observed. PSYCH: Normal mood, normal affect. SKIN: Warm, dry, normal turgor, no rashes or lesions noted Laboratory Results - last 24 hr 12/01/17 12/01/17 12/01/17 09:05 11:43 11:43 WBC RBC Hgb Hct MCV MCH MCHC RDW Plt Count MPV Neutrophils % Lymphocytes % Monocytes % Eosinophils % Basophils % Sodium Potassium Chloride Carbon Dioxide Anion Gap BUN Creatinine POC Glucometer Random Glucose Lactic Acid 2.2 H* Calcium Phosphorus Magnesium Creatine Kinase 73 Troponin I < 0.03 12/01/17 12/01/17 12/02/17 16:42 21:00 06:25 WBC RBC Hgb Hct MCV MCH MCHC RDW Plt Count MPV Neutrophils % Lymphocytes % Monocytes % Eosinophils % Basophils % Sodium Potassium Chloride Carbon Dioxide Anion Gap BUN Creatinine POC Glucometer 211 202 171 Random Glucose Lactic Acid Calcium Phosphorus Magnesium Creatine Kinase Troponin I 12/02/17 12/02/17 12/02/17 07:25 07:25 12:46 WBC 11.5 H D RBC 4.71 Hgb 13.6 Hct 41.0 MCV 87.1 MCH 28.9 MCHC 33.2 RDW 12.8 Plt Count 342 MPV 9.1 Neutrophils % 86.2 H D Lymphocytes % 9.2 D Monocytes % 4.1 Eosinophils % 0.1 D Basophils % 0.4 Sodium 141 Potassium 4.7 Chloride 100 Carbon Dioxide 34 H Anion Gap 7 L BUN 24 H D Creatinine 0.7 POC Glucometer 310 Random Glucose 163 H Lactic Acid Calcium 9.2 Phosphorus 4.3 D Magnesium 2.2 D Creatine Kinase Troponin I Active Medications Generic Name Dose Route Start Last Admin Trade Name Freq PRN Reason Stop Dose Admin Acetaminophen 650 mg 11/30/17 12:52 12/01/17 22:03 Tylenol - PO 650 mg Q4H PRN Administration FEVER Albuterol Sulfate 1 amp 11/30/17 12:51 Ventolin 0.083% Nebulizer Soln - NEB Q4H PRN SHORT OF BREATH/WHEEZING Albuterol/Ipratropium 1 amp 11/30/17 16:00 12/02/17 08:40 Duoneb - NEB 1 amp RQID [facility] Administration Budesonide/Formoterol Fumarate 1 puff 11/30/17 22:00 12/02/17 09:51 Symbicort 160/4.5mcg - IH 1 puff BID [facility] Administration Cholecalciferol 2,000 unit 12/01/17 10:00 12/02/17 09:46 Vitamin D3 - PO 2,000 unit DAILY [facility] Administration Enoxaparin Sodium 40 mg 11/30/17 16:15 12/02/17 09:47 Lovenox - SQ 40 mg DAILY [facility] Administration Famotidine 20 mg 11/30/17 22:00 12/02/17 09:47 Pepcid - PO 20 mg BID [facility] Administration Furosemide 40 mg 12/02/17 10:00 12/02/17 09:55 Lasix - PO 40 mg DAILY [facility] Administration CEFTRIAXONE 1 G/50 ML PREMIX 50 mls @ 100 mls/hr 12/01/17 10:00 12/02/17 09: 47 Ceftriaxone 1 Gm-D5w Bag IVPB 100 mls/hr DAILY [facility] Administration Azithromycin 250 mg/ Dextrose 250 mls @ 250 mls/hr 12/01/17 10:00 12/02/17 09 :47 IVPB 250 mls/hr DAILY [facility] Administration Insulin Aspart 1 vial 11/30/17 16:30 12/02/17 12:51 Novolog Vial Sliding Scale - SQ 8 unit ACHS [facility] Administration Protocol Melatonin 5 mg 11/30/17 12:53 Melatonin PO HS PRN INSOMNIA Methylprednisolone Sodium Succinate 40 mg 12/01/17 10:00 12/02/17 09:47 Solu-Medrol - IVPUSH 40 mg Q8H-IV [facility] Administration Rosuvastatin Calcium 5 mg 12/01/17 10:00 12/02/17 09:46 Crestor - PO 5 mg DAILY [facility] Administration Microbiology 11/30/17 10:30 Blood - Peripheral Venous Blood Culture - Preliminary NO GROWTH OBTAINED AFTER 48 HOURS, INCUBATION TO CONTINUE FOR 3 DAYS. 11/30/17 10:30 Blood - Peripheral Venous Blood Culture - Preliminary NO GROWTH OBTAINED AFTER 48 HOURS, INCUBATION TO CONTINUE FOR 3 DAYS. 11/30/17 12:30 Urine - Urine Clean Catch Legionella Antigen - Final, negative 11/30/17 12:30 Urine - Urine Clean Catch Streptococcus pneumoniae Antigen ( M - Final, negative 11/30/17 10:35 Urine - Urine Clean Catch Urine Culture - Final Contaminated: Please Repeat ASSESSMENT/PLAN: 1) cardiovascular diastolic congestive heart failure - echo reviewed from 09/10/17, ef 60%, grade I diastolic dyfunction - 3.8kg weight loss noted, transition to po lasix - strict i/o and daily weight hypertension - no home medications, b/p at goal, strict b/p monitoring 2) pulm pleural effusion - ct of chest reviewed, moderate right pleural effusion noted - continue zithromax and rocephin for empiric coverage - pulmonary consulted an following copd - wheezing resolved, taper solumedrol 40mg bid continue symbicort, with standing duonebs 3) endo DM - continue to hold meformin secondary to lactic acidosis, continue fingersticks achs with regular insulin sliding scale f/e/n - diabetic/low sodium diet - replete lytes prn ppx - lovenox - pepcid - scd dispo: requires inpatient admission Visit type - Emergency Visit Emergency Visit: Yes ED Registration Date: 11/30/17 Care time: The patient presented to the Emergency Department on the above date and was hospitalized for further evaluation of their emergent condition. - New Patient This patient is new to me today: No - Critical Care Critical Care patient: No - Discharge Referral Referred to [facility] Med P.C.: No
--- NOTE | 2017-12-02 18:29 | PN ---
Progress Note (short form) - Note Progress Note: PULMONARY SUBJECTIVE IMPROVEMENT VSS/AFEBRILE LESS COUGH ANICTERIC DIMINISHED BREATH SOUNDS RIGHT BASE EXTENDING 1/4 LUNG FIELD S1S2 BS+ OBESE LESS ANKLE EDEMA LABS/MEDS/NOTES/IMAGES REVIEWED IMP WORSENING RIGHT PLEURAL EFFUSION WITH RIGHT LOWER LOBE INFILTRATE H/O PERICARDIAL EFFUSION REQUIRING WINDOW ETIOLOGY OF WHICH IS UNCLEAR OSAS/M.OBESITY COPD AGREE WITH ANTIBIOTICS/O2 SUPPLEMENTATION/.BRONCHODILATORS TO FACILITATE MUCOUS CLEARANCE TAPER STEROIDS ECHO FROM 08/2017 REVIEWED WOULD CONSIDER THORACENTESIS OUTPATIENT IF FLUID IS NOT LESS IN F/U IMAGING STUDY Zita FAY MD Problem List - Problems (1) Pneumonia Code(s): J18.9 - PNEUMONIA, UNSPECIFIED ORGANISM Qualifiers: Pneumonia type: due to unspecified organism Laterality: right Lung location: unspecified part of lung Qualified Code(s): J18.9 - Pneumonia, unspecified organism (2) COPD (chronic obstructive pulmonary disease) Code(s): J44.9 - CHRONIC OBSTRUCTIVE PULMONARY DISEASE, UNSPECIFIED Qualifiers: COPD type: unspecified COPD Qualified Code(s): J44.9 - Chronic obstructive pulmonary disease, unspecified (3) Obesity Code(s): E66.9 - OBESITY, UNSPECIFIED (4) Pericardial effusion Code(s): I31.3 - PERICARDIAL EFFUSION (NONINFLAMMATORY) (5) Pleural effusion Code(s): J90 - PLEURAL EFFUSION, NOT ELSEWHERE CLASSIFIED (6) Shortness of breath Code(s): R06.02 - SHORTNESS OF BREATH (7) Sleep apnea Code(s): G47.30 - SLEEP APNEA, UNSPECIFIED Qualifiers: Sleep apnea type: unspecified type Qualified Code(s): G47.30 - Sleep apnea , unspecified
[2017-12-03] MEDS: methylPREDNISolone NA SUCC 40 MG/1 ML VIAL IVPUSH SCH (01:19)
[2017-12-03] MEDS: INSULIN SLIDING SCALE (NOVOLOG) 1 VIAL SQ SCH (07:01)
[2017-12-03] MEDS: ALBUTEROL SO4 2.5/IPRATROPIUM 0.5 INH SOL 3 ML VIAL.NEB. NEB SCH ×2 (08:55→13:00)
[2017-12-03 08:57] VITALS: BP 111/58; PULSE 82; TEMP 98.1
[2017-12-03] MEDS: CEFTRIAXONE 1 G/50 ML PREMIX 50 ML IVPB SCH (09:35)
[2017-12-03] MEDS: AZITHROMYCIN IVPB 250 MG in DEXTROSE 5%-WATER - 250 ML IVPB SCH (09:38)
[2017-12-03] MEDS: CHOLECALCIFEROL (VITAMIN D3) 1,000 UNIT TABLET (FP) PO SCH (09:39)
[2017-12-03] MEDS: FAMOTIDINE 20 MG TABLET PO SCH (09:39)
[2017-12-03] MEDS: BUDESONIDE/FORMETEROL FUMARATE 160/4.5 mcg INHALER IH SCH (09:39)
[2017-12-03] MEDS: ROSUVASTATIN CA 5 MG TABLET (FP) PO SCH (09:39)
[2017-12-03] MEDS: FUROSEMIDE 40 MG TABLET (FP) PO SCH (09:39)
[2017-12-03] MEDS: ENOXAPARIN NA (PORCINE) 40 MG/0.4 ML DISP.SYRIN SQ SCH (09:40)
[2017-12-03] MEDS ORDERED: methylPREDNISolone NA SUCC 40 MG/1 ML VIAL IVPUSH SCH (10:00)
--- NOTE | 2017-12-03 10:28 | PN ---
Progress Note, Physician History of Present Illness: pulmonary alert,no complaints ,feeling better,dyspnea improved,-cp,less cough - Current Medication List Current Medications: Active Medications Acetaminophen (Tylenol -) 650 mg PO Q4H PRN PRN Reason: FEVER Last Admin: 12/01/17 22:03 Dose: 650 mg Albuterol Sulfate (Ventolin 0.083% Nebulizer Soln -) 1 amp NEB Q4H PRN PRN Reason: SHORT OF BREATH/WHEEZING Albuterol/Ipratropium (Duoneb -) 1 amp NEB RQID [facility] Last Admin: 12/03/17 08:55 Dose: 1 amp Budesonide/Formoterol Fumarate (Symbicort 160/4.5mcg -) 1 puff IH BID [facility] Last Admin: 12/03/17 09:39 Dose: 1 puff Cholecalciferol (Vitamin D3 -) 2,000 unit PO DAILY [facility] Last Admin: 12/03/17 09:39 Dose: 2,000 unit Enoxaparin Sodium (Lovenox -) 40 mg SQ DAILY [facility] Last Admin: 12/03/17 09:40 Dose: 40 mg Famotidine (Pepcid -) 20 mg PO BID [facility] Last Admin: 12/03/17 09:39 Dose: 20 mg Furosemide (Lasix -) 40 mg PO DAILY [facility] Last Admin: 12/03/17 09:39 Dose: 40 mg CEFTRIAXONE 1 G/50 ML PREMIX (Ceftriaxone 1 Gm-D5w Bag) 50 mls @ 100 mls/hr IVPB DAILY [facility] Last Admin: 12/03/17 09:35 Dose: 100 mls/hr Azithromycin 250 mg/ Dextrose 250 mls @ 250 mls/hr IVPB DAILY [facility] Last Admin: 12/03/17 09:38 Dose: 250 mls/hr Insulin Aspart (Novolog Vial Sliding Scale -) 1 vial SQ ACHS [facility] PRN Reason: Protocol Last Admin: 12/03/17 07:01 Dose: 2 unit Melatonin (Melatonin) 5 mg PO HS PRN PRN Reason: INSOMNIA Methylprednisolone Sodium Succinate (Solu-Medrol -) 40 mg IVPUSH BID [facility] Last Admin: 12/03/17 09:39 Dose: 40 mg Rosuvastatin Calcium (Crestor -) 5 mg PO DAILY [facility] Last Admin: 12/03/17 09:39 Dose: 5 mg - Objective Vital Signs: Vital Signs Temperature 98.1 F 12/03/17 08:56 Pulse Rate 82 12/03/17 08:56 Respiratory Rate 20 12/03/17 08:56 Blood Pressure 111/58 12/03/17 08:56 O2 Sat by Pulse Oximetry (%) 96 12/03/17 08:50 Constitutional: Yes: Calm, Obese Eyes: Yes: WNL HENT: Yes: WNL Neck: Yes: WNL Cardiovascular: Yes: Regular Rate and Rhythm, S1, S2 Respiratory: Yes: Diminished Gastrointestinal: Yes: Normal Bowel Sounds, Abdomen, Obese Extremities: Yes: WNL Edema: Yes Labs: Assessment/Plan IMP WORSENING RIGHT PLEURAL EFFUSION WITH RIGHT LOWER LOBE INFILTRATE H/O PERICARDIAL EFFUSION S/P WINDOW OSAS/M.OBESITY COPD ANTIBIOTICS O2 SUPPLEMENTATION .BRONCHODILATORS TAPER STEROIDS WOULD CONSIDER THORACENTESIS OUTPATIENT IF FLUID IS NOT LESS IN F/U IMAGING STUDY OFFICE F/U [address] HOLMAN Problem List - Problems (1) Pneumonia Code(s): J18.9 - PNEUMONIA, UNSPECIFIED ORGANISM Qualifiers: Pneumonia type: due to unspecified organism Laterality: right Lung location: unspecified part of lung Qualified Code(s): J18.9 - Pneumonia, unspecified organism (2) COPD (chronic obstructive pulmonary disease) Code(s): J44.9 - CHRONIC OBSTRUCTIVE PULMONARY DISEASE, UNSPECIFIED Qualifiers: COPD type: unspecified COPD Qualified Code(s): J44.9 - Chronic obstructive pulmonary disease, unspecified (3) Obesity Code(s): E66.9 - OBESITY, UNSPECIFIED (4) Pericardial effusion Code(s): I31.3 - PERICARDIAL EFFUSION (NONINFLAMMATORY) (5) Pleural effusion Code(s): J90 - PLEURAL EFFUSION, NOT ELSEWHERE CLASSIFIED (6) Shortness of breath Code(s): R06.02 - SHORTNESS OF BREATH (7) Sleep apnea Code(s): G47.30 - SLEEP APNEA, UNSPECIFIED Qualifiers: Sleep apnea type: unspecified type Qualified Code(s): G47.30 - Sleep apnea , unspecified
--- NOTE | 2017-12-03 12:16 | PN ---
Progress Note, Physician Chief Complaint: Sitting on bed Feels better History of Present Illness: Patient was seen and examined. Awake and alert. Chart was reviewed Denies chest pain or palpitation Denies SOB and cough - Current Medication List Current Medications: Active Medications Acetaminophen (Tylenol -) 650 mg PO Q4H PRN PRN Reason: FEVER Last Admin: 12/01/17 22:03 Dose: 650 mg Albuterol Sulfate (Ventolin 0.083% Nebulizer Soln -) 1 amp NEB Q4H PRN PRN Reason: SHORT OF BREATH/WHEEZING Albuterol/Ipratropium (Duoneb -) 1 amp NEB RQID [facility] Last Admin: 12/03/17 08:55 Dose: 1 amp Budesonide/Formoterol Fumarate (Symbicort 160/4.5mcg -) 1 puff IH BID [facility] Last Admin: 12/03/17 09:39 Dose: 1 puff Cholecalciferol (Vitamin D3 -) 2,000 unit PO DAILY [facility] Last Admin: 12/03/17 09:39 Dose: 2,000 unit Enoxaparin Sodium (Lovenox -) 40 mg SQ DAILY [facility] Last Admin: 12/03/17 09:40 Dose: 40 mg Famotidine (Pepcid -) 20 mg PO BID [facility] Last Admin: 12/03/17 09:39 Dose: 20 mg Furosemide (Lasix -) 40 mg PO DAILY [facility] Last Admin: 12/03/17 09:39 Dose: 40 mg CEFTRIAXONE 1 G/50 ML PREMIX (Ceftriaxone 1 Gm-D5w Bag) 50 mls @ 100 mls/hr IVPB DAILY [facility] Last Admin: 12/03/17 09:35 Dose: 100 mls/hr Azithromycin 250 mg/ Dextrose 250 mls @ 250 mls/hr IVPB DAILY [facility] Last Admin: 12/03/17 09:38 Dose: 250 mls/hr Insulin Aspart (Novolog Vial Sliding Scale -) 1 vial SQ ACHS [facility] PRN Reason: Protocol Last Admin: 12/03/17 07:01 Dose: 2 unit Melatonin (Melatonin) 5 mg PO HS PRN PRN Reason: INSOMNIA Methylprednisolone Sodium Succinate (Solu-Medrol -) 40 mg IVPUSH BID [facility] Last Admin: 12/03/17 09:39 Dose: 40 mg Rosuvastatin Calcium (Crestor -) 5 mg PO DAILY [facility] Last Admin: 12/03/17 09:39 Dose: 5 mg - Objective Vital Signs: Vital Signs Temperature 98.1 F 12/03/17 08:56 Pulse Rate 82 12/03/17 08:56 Respiratory Rate 20 12/03/17 08:56 Blood Pressure 111/58 12/03/17 08:56 O2 Sat by Pulse Oximetry (%) 96 12/03/17 08:50 Eyes: Yes: PERRL HENT: Yes: Atraumatic Neck: Yes: Supple Cardiovascular: Yes: Regular Rate and Rhythm, S1, S2 Respiratory: Yes: CTA Bilaterally Gastrointestinal: Yes: Normal Bowel Sounds, Soft, Abdomen, Obese. No: Tenderness Edema: Yes Edema: LLE: Trace, RLE: Trace Additional Findings/Remarks: - Review of Systems Constitutional: denies: Chills, Fever Cardiovascular: reports: Shortness of Breath. denies: Chest Pain, Palpitations Respiratory: reports: Cough, SOB, SOB on Exertion. denies: Hemoptysis, Orthopnea, PND Gastrointestinal: denies: Abdominal Pain, Constipation, Diarrhea, Melena, Nausea , Rectal Bleeding, Vomiting Genitourinary: denies: Dysuria, Hematuria Musculoskeletal: denies: Joint Pain Neurological: denies: Dizziness, Headache, Seizure, Syncope, Weakness Labs: CBC, BMP 12/02/17 07:25 12/02/17 07:25 Problem List - Problems (1) Pneumonia Code(s): J18.9 - PNEUMONIA, UNSPECIFIED ORGANISM Qualifiers: Qualified Code(s): J18.9 - Pneumonia, unspecified organism (2) COPD exacerbation Code(s): J44.1 - CHRONIC OBSTRUCTIVE PULMONARY DISEASE W (ACUTE) EXACERBATION (3) Hyponatremia Code(s): E87.1 - HYPO-OSMOLALITY AND HYPONATREMIA (4) Leukocytosis Code(s): D72.829 - ELEVATED WHITE BLOOD CELL COUNT, UNSPECIFIED (5) Pericardial effusion Code(s): I31.3 - PERICARDIAL EFFUSION (NONINFLAMMATORY) (6) Pleural effusion Code(s): J90 - PLEURAL EFFUSION, NOT ELSEWHERE CLASSIFIED (7) Shortness of breath Code(s): R06.02 - SHORTNESS OF BREATH (8) URI (upper respiratory infection) Code(s): J06.9 - ACUTE UPPER RESPIRATORY INFECTION, UNSPECIFIED Qualifiers: Qualified Code(s): J06.9 - Acute upper respiratory infection, unspecified (9) Sleep apnea Code(s): G47.30 - SLEEP APNEA, UNSPECIFIED Qualifiers: Qualified Code(s): G47.30 - Sleep apnea, unspecified Assessment/Plan 1. COPD exacerbation +/- pneumonia 2. Pleural effusion due to acute on chronic LV diastolic failure 3. History of pericardial effusion s/p pericardial window 4. Obstructive sleep apnea 5. Exogenous obesity 6. Hypercholesterolemia PLAN: 1. Continue empiric antibiotic coverage 2. Continue bronchodilator, O2 and steroid taper 3. Continue Rosuvastatin 4. DVT prophylaxis 5. Diuretics - PO regimen and monitor clinically Further plans are to follow. Discharge planning. Patient is to be followed as outpatient Kevin Monte MD
--- NOTE | 2017-12-03 12:23 | DS ---
Physical Exam: SUBJECTIVE: Patient seen and examined, denies any chest pain or shortness of breath. ambulatory at bedside denies any dyspnea upon exertion. OBJECTIVE: Patient is a 77 y/o male with a past medical history of hypertension , pericardial effusion (s/p pericardiocentesis 12/07), diastolic congestive heart failure, hyperlipidemia, and COPD. Patient reports with ongoing and shortness of breath for the past 3 days. He endorses swelling to lower extremities within the past week. Patient reports worsening dyspnea upon exertion at home today and sought evaluation in the emergency department. ER course was notable for: (1) ct of chest w/o contrast: moderate right pleural effusion with atelectatic changes of the lower lobe. (2) lactic acid 2.4 (3) troponin 0.03 Vital Signs Period Temp Pulse Resp BP Sys/Martinez Pulse Ox Last 24 Hr 97.5 F-98.1 F 81-93 19-20 111-130/58-70 94-97 PHYSICAL EXAM GENERAL: The patient is awake, alert, and fully oriented, in no acute distress. HEAD: Normal with no signs of trauma. EYES: PERRL, extraocular movements intact, sclera anicteric, conjunctiva clear. No ptosis. ENT: Ears normal, nares patent, oropharynx clear without exudates, moist mucous membranes. NECK: Trachea midline, full range of motion, supple. LUNGS: Breath sounds equal, diminished throughout right apex and base, clear to left apex and base, no wheezes, no crackles, no accessory muscle use. HEART: Regular rate and rhythm, S1, S2 without murmur, rub or gallop. ABDOMEN: Soft, obese, nontender, nondistended, normoactive bowel sounds, no guarding, no rebound, no hepatosplenomegaly, no masses. EXTREMITIES: 2+ pulses, warm, well-perfused, no edema. NEUROLOGICAL: Cranial nerves II through XII grossly intact. Normal speech, gait not observed. PSYCH: Normal mood, normal affect. SKIN: Warm, dry, normal turgor, no rashes or lesions noted LABS Laboratory Results - last 24 hr 12/02/17 12/02/17 12/02/17 12:46 16:48 21:34 POC Glucometer 310 232 199 12/03/17 06:23 POC Glucometer 167 CBC WBC 11.5 K/mm3 (4.0-10.8) H D 12/02/17 07:25 RBC 4.71 M/mm3 (4.00-5.60) 12/02/17 07:25 Hgb 13.6 GM/dl (11.7-16.9) 12/02/17 07:25 Hct 41.0 % (35.4-49) 12/02/17 07:25 MCV 87. 1 fl (80-96) 12/02/17 07:25 MCH 28.9 pg (25.7-33.7) 12/02/17 07:25 MCHC 33.2 g/dl (32.0-35.9) 12/02/17 07:25 RDW 12.8 % (11.9-15.9) 12/02/17 07:25 Plt Count 342 K/MM3 (134-434) 12/02/17 07:25 MPV 9.1 fl (7.5-11.1) 12/02/17 07:25 Neutrophils % 86.2 % (42.8-82.8) H D 12/02/17 07:25 Lymphocytes % 9.2 % (8-40) D 12/02/17 07:25 Monocytes % 4.1 % (3.8-10.2) 12/02/17 07:25 Eosinophils % 0.1 % (0-4.5) D 12/02/17 07:25 Basophils % 0.4 % (0-2.0) 12/02/17 07:25 CMP Sodium 141 mmol/L (136-145) 12/02/17 07:25 Potassium 4.7 mmol/L (3.5-5.1) 12/02/17 07:25 Chloride 100 mmol/L (98-107) 12/02/17 07:25 Carbon Dioxide 34 mmol/L (21-32) H 12/02/17 07:25 Anion Gap 7 (8-16) L 12/02/17 07:25 BUN 24 mg/dL (7-18) H D 12/02/17 07:25 Creatinine 0.7 mg/dL (0.7-1.3) 12/02/17 07:25 Creat Clearance w eGFR > 60 (>60) 12/01/17 09:05 POC Glucometer 167 UNITS (80-120) 12/03/17 06:23 Random Glucose 163 mg/dL (74-106) H 12/02/17 07:25 Hemoglobin A1c % 6.7 % (4.8-6.0) H D 11/30/17 13:05 Lactic Acid 2.2 mmol/L (0.0-2.0) H* 12/01/17 09:05 Calcium 9.2 mg/dL (8.5-10.1) 12/02/17 07:25 Phosphorus 4.3 mg/dL (2.5-4.9) D 12/02/17 07:25 Magnesium 2.2 mg/dL (1.8-2.4) D 12/02/17 07:25 Total Bilirubin 0.5 mg/dl (0.2-1.0) D 12/01/17 09:05 AST 28 U/L (10-42) D 12/01/17 09:05 ALT 34 U/L (10-40) 12/01/17 09:05 Alkaline Phosphatase 68 U/L (32-92) 12/01/17 09:05 Creatine Kinase 73 IU/L (39-308) 12/01/17 11:43 Troponin I < 0.03 ng/ml (0.00-0.06) 12/01/17 11:43 B-Natriuretic Peptide 104.35 pg/ml (5-450) 11/30/17 13:05 Total Protein 6.5 g/dl (6.4-8.3) 12/01/17 09:05 Albumin 3.5 g/dl (3.5-5.0) 12/01/17 09:05 Microbiology 11/30/17 10:30 Blood - Peripheral Venous Blood Culture - Preliminary NO GROWTH OBTAINED AFTER 72 HOURS, INCUBATION TO CONTINUE FOR 2 DAYS. 11/30/17 10:30 Blood - Peripheral Venous Blood Culture - Preliminary NO GROWTH OBTAINED AFTER 72 HOURS, INCUBATION TO CONTINUE FOR 2 DAYS. 12/01/17 12:15 Urine - Urine Clean Catch Urine Culture - Final NO GROWTH OBTAINED 11/30/17 12:30 Urine - Urine Clean Catch Legionella Antigen - Final, negative 11/30/17 12:30 Urine - Urine Clean Catch Streptococcus pneumoniae Antigen ( M - Final, negative 11/30/17 10:35 Urine - Urine Clean Catch Urine Culture - Final Contaminated: Please Repeat HOSPITAL COURSE: * diastolic congestive heart failure, echo reviewed from 09/10/17, ef 60%, grade I diastolic dyfunction, 3.8kg weight loss noted after IV lasix patient was transitioned to po lasix * hypertension, no home medications, b/p at goal, strict b/p monitoring * pleural effusion, ct of chest reviewed, moderate right pleural effusion noted , pulmonary consulted and followed, patient will require, outpatient follow up. zithromax and rocephin given for empiric coverage * copd excerbation, wheezing resolved after solumedrol taper, patient transitioned to PO prednsione, continued symbicort, with standing duonebs * DM, meformin held secondary to lactic acidosis Date of Discharge: 12/03/17 Minutes to complete discharge: 45 Discharge Summary Reason For Visit: PNEUMONIA, PLEURAL EFFUSION Current Active Problems Pneumonia (Acute) COPD (chronic obstructive pulmonary disease) (Chronic) Condition: Stable - Instructions Diet, Activity, Other Instructions: your lasix was increased to 40mg daily continue prednisone as prescribed continue all medications as prescribed please follow up with the mine motor engineer within 2 weeks please follow up with the applications programmer within 2 weeks if any new or persistent symptoms please return to the emergency department Referrals: Sonido Barillas MD [Staff Physician] - 2 Weeks Chacho Davidson MD [Primary Care Provider] - Kevin Monte MD [Staff Physician] - Disposition: VNS/HOME HEALTH CARE - Home Medications Comprehensive Discharge Medication List: Ambulatory Orders Cholecalciferol (Vitamin D3) [Vitamin D3] 2,000 unit PO DAILY tablet 04/14/17 Metformin HCl [Glucophage] 1,000 mg PO BID 11/30/17 Rosuvastatin Calcium [Crestor] 5 mg PO DAILY 11/30/17 Acetaminophen [Tylenol .Regular Strength -] 650 mg PO Q4H PRN tablet 12/03/17 Albuterol 0.083% Nebulizer Kamla [Ventolin 0.083% Nebulizer Soln -] 1 amp NEB Q4H PRN #120 amp 12/03/17 Famotidine [Pepcid -] 20 mg PO BID #60 tablet 12/03/17 Furosemide [Lasix -] 40 mg PO DAILY #30 tablet 12/03/17 predniSONE [Deltasone -] 5 mg PO ASDIR #32 tab 12/03/17 This patient is new to me today: Yes Date on this admission: 12/03/17 Emergency Visit: No Critical Care patient: No - Discharge Referral Referred to [facility] No
== END 2017-12-03 14:34 | disposition home health service (06) | DRG 291 ==
LOC: FER 09:39 → FM/S 13:26
PROVIDERS: ADMIT Internal Medicine; ATTEND Nurse Practitioner Family
DX: I11.0 Hypertensive heart disease with heart failure (principal); J18.9 Pneumonia, unspecified organism; E87.2 Acidosis; I31.3 Pericardial effusion (noninflammatory); J44.1 Chronic obstructive pulmonary disease with (acute) exacerbation; E78.5 Hyperlipidemia, unspecified; I50.33 Acute on chronic diastolic (congestive) heart failure; M71.9 Bursopathy, unspecified; E11.9 Type 2 diabetes mellitus without complications; M54.5 Low back pain; J44.9 Chronic obstructive pulmonary disease, unspecified; D72.829 Elevated white blood cell count, unspecified; J06.9 Acute upper respiratory infection, unspecified; E66.9 Obesity, unspecified; Z68.36 Body mass index [BMI] 36.0-36.9, adult; G47.33 Obstructive sleep apnea (adult) (pediatric); E78.00 Pure hypercholesterolemia, unspecified; Z87.891 Personal history of nicotine dependence
CPT/HCPCS: 36415; 71046-TC-FY; 71250-TC; 80048; 80053; 81003; 81015; 82550; 82962; 83036; 83605; 83735; 83880; 84100; 84484; 85025; 85610; 85730; 87040; 87086; 87899; 93005; 94010; 94640; 97116-GP; 97161-GP; 99285-25

== ENCOUNTER 2017-12-28 07:07 | Day surgery (SDC) | payer OTHER, MEDICARE ==
[2017-12-25 13:02] VITALS: BMI 37.7
[2017-12-28 07:33] VITALS: TEMP 97.6
[2017-12-28 11:47] LABS: GLUCOSE,PLEURAL FLUID 123.611
[2017-12-28 11:51] LABS: PLEURAL FLUID APPEARANCE CLOUDY; PLEURAL FLUID COLOR RED; PLEURAL FLUID RBC 57560 /mm3
[2017-12-28 14:08] VITALS: BP 119/73; PULSE 90
[2017-12-28 14:46] LABS: PLEURAL FLUID LYMPHOCYTES 76 %; PLEURAL FLUID MACROPHAGES 4 %; PLEURAL FLUID MONOCYTE 20 %
--- NOTE | 2017-12-30 13:21 | PATH ---
Cytology Non-Gynecological Report Patient Name: STEVIE PRUETT 2. [facility]. Rec. #: [id number] /Age/Gender: 1940 (Age: 77) / M Account: [id number] Location: RADIOLOGY Taken: 12/28/2017 Received: 12/28/2017 Reported: 12/30/2017 Physicians: Sonido Barillas M.D. Specimen(s) Received A: PLEURAL FLUID B: PLEURAL FLUID Clinical History Her Pleural effusion Final Diagnosis PLEURAL FLUID, THORACENTESIS: SATISFACTORY FOR EVALUATION. NO MALIGNANT CELLS IDENTIFIED. REACTIVE MESOTHELIAL CELLS AND NUMEROUS MACROPHAGES PRESENT. COMMENT: Immunohistochemical stains performed at [place], [place] ([id number]) showed reactive mesothelial cells, which highlighted by D2-40 and Calretinin, in a background of numerous CD68 positive macrophages. EMILY, BerEp4, and MOC-31 are negative. Electronically Signed Laila Beavers M.D. Gross Description A. Approximately 500cc of bloody fluid received fresh. Two cytofunnels and one cellblock prepared. B. Approximately 20cc of bloody fluid received fixed in 50% alcohol. Two cytofunnels and one cellblock prepared.
== END 2017-12-28 12:00 | disposition home or self-care (01) ==
LOC: JRADIR 07:07
PROVIDERS: ATTEND Internal Medicine Pulmonary Disease
PROC: 0W9B3ZZ Drainage of Left Pleural Cavity, Percutaneous Approach (ICD-10-PCS; principal; 2017-12-28)
DX: J90 Pleural effusion, not elsewhere classified (principal)
CPT/HCPCS: 71045-TC-FY; 76942; 82042; 82150; 82945; 83615; 84157; 84311; 84478; 87070; 87075; 87102; 87116; 87205; 87206; 87210; 88108; 88305-TC; 89051

== ENCOUNTER 2019-04-14 08:09 | Emergency (ER) | payer OTHER, MEDICARE ==
[2019-04-14 08:18] VITALS: BMI 40.3
[2019-04-14] MEDS ORDERED: ALBUTEROL SO4 2.5/IPRATROPIUM 0.5 INH SOL 3 ML VIAL.NEB. NEB ONE ×2 (08:35→08:54)
--- NOTE | 2019-04-14 08:54 | PDOC ---
History of Present Illness - General Chief Complaint: Shortness of Breath Stated Complaint: SOB Time Seen by Provider: 04/14/19 08:10 - History of Present Illness Initial Comments: 04/14/19 08:49 79 M with h/o hypertension, pericardial effusion (s/p pericardiocentesis 12/07), diastolic congestive heart failure, hyperlipidemia, and COPD, presenting to ED with intermittent SOB, now resolved. Pt states that 2 days ago, he began to have SOB. States that it only occurred while he was at home. When he gets up and goes outside, the SOB resolves. Pt currently denies any SOB. Denies orthopnea. Denies RODRIGUEZ. Denies CP. Denies F/C. Denies cough. Denies any new leg swelling. Pt does not feel like he is having a CHF or COPD flare. Pt states he has not had SOB since the episode 2 days ago. When asked why he came to the ED today, he states it's because he couldn't sleep last night but cannot state why. He denies any SOB last night. Denies any pain or discomfort. Past History - Past Medical History Allergies/Adverse Reactions: Allergies Allergy/AdvReac Type Severity Reaction Status Date / Time No Known Allergies Allergy Verified 04/14/19 08:10 Home Medications: Ambulatory Orders Cholecalciferol (Vitamin D3) [Vitamin D3] 2,000 unit PO DAILY tablet 04/14/17 Metformin HCl [Glucophage] 1,000 mg PO BID 11/30/17 Rosuvastatin Calcium [Crestor] 5 mg PO DAILY 11/30/17 Acetaminophen [Tylenol .Regular Strength -] 650 mg PO Q4H PRN tablet 12/03/17 Albuterol 0.083% Nebulizer Kamla [Ventolin 0.083% Nebulizer Soln -] 1 amp NEB Q4H PRN #120 amp 12/03/17 Famotidine [Pepcid -] 20 mg PO BID #60 tablet 12/03/17 Furosemide [Lasix -] 40 mg PO DAILY #30 tablet 12/03/17 predniSONE [Deltasone -] 5 mg PO ASDIR #32 tab 12/03/17 Anemia: No Asthma: Yes Cancer: No Cardiac Disorders: Yes (pericardial effusion) CVA: No COPD: Yes CHF: Yes (pleural effusion) Dementia: No Diabetes: Yes GI Disorders: No Disorders: Yes (BPH) HTN: Yes Hypercholesterolemia: No Liver Disease: No Seizures: No Thyroid Disease: No - Surgical History Abdominal Surgery: No Appendectomy: No Cardiac Surgery: Yes Cholecystectomy: No Lung Surgery: No Neurologic Surgery: No Orthopedic Surgery: No - Suicide/Smoking/Psychosocial Hx Smoking History: Former smoker Have you smoked in the past 12 months: No Number of Cigarettes Smoked Daily: 1 If you are a former smoker, when did you quit?: 8YRS Information on smoking cessation initiated: No 'Breaking Loose' booklet given: 11/26/15 Hx Alcohol Use: No Drug/Substance Use Hx: No Substance Use Type: None Hx Substance Use Treatment: No Review of Systems - Review of Systems Comments:: 04/14/19 08:53 "GENERAL/CONSTITUTIONAL: No fever or chills. No weakness. HEAD, EYES, EARS, NOSE AND THROAT: No change in vision. No ear pain or discharge. No sore throat. CARDIOVASCULAR: No chest pain, no loss of consciousness RESPIRATORY: +SOB, No cough, wheezing, or hemoptysis. GASTROINTESTINAL: No nausea, vomiting, diarrhea or constipation. GENITOURINARY: No dysuria, frequency, or change in urination. MUSCULOSKELETAL: No joint or muscle swelling or pain. No neck or back pain. SKIN: No rash NEUROLOGIC: No vertigo, no change in strength/sensation. ENDOCRINE: No increased thirst. No abnormal weight change. HEMATOLOGIC/LYMPHATIC: No anemia, easy bleeding, or history of blood clots. ALLERGIC/IMMUNOLOGIC: No hives or skin allergy. *Physical Exam - Vital Signs Last Vital Signs Temp Pulse Resp BP Pulse Ox 98.3 F 92 H 22 H 136/68 93 L 04/14/19 08:10 04/14/19 08:10 04/14/19 08:10 04/14/19 08:10 04/14/19 08:10 - Physical Exam Comments: 04/14/19 08:53 "GENERAL: Awake, alert, and fully oriented, in no acute distress. HEAD: No signs of trauma EYES: PERRLA, EOMI, sclera anicteric, conjunctiva clear ENT: Auricles normal inspection, hearing grossly normal, nares patent, oropharynx clear without exudates. Moist mucosa NECK: Nontender, no stepoffs, Normal ROM, supple, no lymphadenopathy, JVD, or masses LUNGS: Breath sounds equal, clear to auscultation bilaterally. No wheezes, and no crackles HEART: Regular rate and rhythm, normal S1 and S2, no murmurs, rubs or gallops ABDOMEN: Soft, nontender, normoactive bowel sounds. No guarding, no rebound. No masses EXTREMITIES: +1 PE BLE, Normal range of motion, No clubbing or cyanosis. No cords, erythema, or tenderness NEUROLOGICAL: Cranial nerves II through XII intact. 5/5 strength and sensation in all extremities, Normal speech, normal gait, normal cerebellar function SKIN: Warm, Dry, normal turgor, no rashes or lesions noted. Heart Score/ECG Review - ECG Impressions Comment:: 04/14/19 08:54 NSR, no SHAZIA/STDs, T wave flattening V2-V3, intervals wnl, rate 92 Unchanged since previous EKG ED Treatment Course - LABORATORY CBC & Chemistry Diagram: 04/14/19 08:56 04/14/19 08:56 - RADIOLOGY Radiology Studies Ordered: Category Date Time Status CHEST PA & LAT [RAD] Stat Radiology 04/14/19 08:34 Ordered Medical Decision Making - Medical Decision Making 04/14/19 08:54 79 M with intermittent SOB 2 days ago, now resolved. Pt with no complaints currently. Normal exam with clear lungs. Pt with O2 sat 93 on RA, which is his baseline. EKG without any signs of acute ischemia. - Labs, trop, BNP - CXR 04/14/19 09:18 Ambulatory sat in ED stable in low 90s Labs notable for transaminitis. Pt without abdominal pain currently but notes that 2 days ago, he had a transient episode of RUQ pain. Pt with benign abdomen today. RUQ sono ordered 04/14/19 13:04 US shows fatty liver, no acute pathology. Results discussed with pt's PMD, Dr. Davidson, who will f/u with pt for repeat blood tests. Pt to also f/u with GI. Pt is well appearing, with normal vitals. Clinically stable for DC at this time. I discussed the physical exam findings, ancillary test results and final diagnoses with the patient. I answered all of the patient's questions. The patient was satisfied with the care received and felt comfortable with the discharge plan and treatment plan. The patient agrees to follow up with the primary care physician within 24-72 hours. *DC/Admit/Observation/Transfer Diagnosis at time of Disposition: Shortness of breath, COPD (chronic obstructive pulmonary disease), Transaminitis - Discharge Dispostion Disposition: HOME - Referrals Referrals: Chacho Davidson MD [Primary Care Provider] - Moses Tan MD [Staff Physician] - - Patient Instructions Printed Discharge Instructions: DI for Shortness of Breath, DI for Nonalcoholic Fatty Liver Disease Additional Instructions: Follow up with your primary doctor tomorrow. Your liver tests were abnormal and need to be re-checked within 48 hours. You will also need to follow up with a agricultural systems specialist. Call the number provided to make an appointment within 1 week. If you experience recurrent shortness of breath, chest pain, abdominal pain, vomiting, fevers, leg swelling, or any other concerning symptoms, return to the ER immediately. - Post Discharge Activity - Attestations Physician Attestion: 04/14/19 09:45 I, Dr. Jarvis Dewitt MD, attest that this document has been prepared under my direction and personally reviewed by me in its entirety. I further attest, that it accurately reflects all work, treatment, procedures and medical decision -making performed by me.
[2019-04-14 09:23] LABS: EOS % 0.1 % (0-4.5); HEMOGLOBIN 14.1 GM/dl (11.7-16.9)
[2019-04-14 09:25] LABS: BASO % 1.5 % (0-2.0); HEMATOCRIT 42.2 % (35.4-49); LYMPH % 7.4 % (8-40); MCH 29.1 pg (25.7-33.7); MCHC 33.5 g/dl (32.0-35.9); MEAN CELL VOLUME 86.8 fl (80-96); MONO % 6.7 % (3.8-10.2); NEUT % 84.3 % (42.8-82.8); PLATELET COUNT 256 K/MM3 (134-434); RBC 4.86 M/mm3 (4.00-5.60); RDW 13.2 % (11.9-15.9); WHITE BLOOD COUNT 11.1 K/mm3 (4.0-10.8)
[2019-04-14 09:31] LABS: ALBUMIN 3.9 g/dl (3.4-5.0); BILIRUBIN,TOTAL 1.1 mg/dl (0.2-1); CALCIUM 8.8 mg/dl (8.5-10); CREATININE 0.8 mg/dl (0.55-1.3); TOT PROT 6.9 g/dl (6.4-8.2)
--- NOTE | 2019-04-14 11:41 | EKG ---
Test Reason : Blood Pressure : / mmHG Vent. Rate : 092 BPM Atrial Rate : 092 BPM P-R Int : 136 ms QRS Dur : 084 ms QT Int : 362 ms P-R-T Axes : 046 -06 048 degrees QTc Int : 447 ms SINUS RHYTHM WITH PREMATURE ATRIAL COMPLEXES NONSPECIFIC ST ABNORMALITY ABNORMAL ECG WHEN COMPARED WITH ECG OF 30-NOV-2017 10:12, NO SIGNIFICANT CHANGE WAS FOUND Confirmed by MEETA SANCHEZ MD ([id number]) on 04/14/2019 11:40:45 AM Referred By: ESA HOUSTON Confirmed By:MEETA SANCHEZ MD
[2019-04-14 11:44] VITALS: BP 109/61; PULSE 93; TEMP 98.5
== END 2019-04-14 13:07 | disposition home or self-care (01) ==
LOC: FER 08:09
PROC: 3E0F7GC Introduction of Other Therapeutic Substance into Respiratory Tract, Via Natural or Artificial Opening (ICD-10-PCS; principal; 2019-04-14)
DX: R06.02 Shortness of breath (principal); J44.9 Chronic obstructive pulmonary disease, unspecified; R74.0 Nonspecific elevation of levels of transaminase and lactic acid dehydrogenase [LDH]; I10 Essential (primary) hypertension; E78.5 Hyperlipidemia, unspecified
CPT/HCPCS: 36415; 71046-TC-FY; 76705-TC; 80053; 82550; 83880; 84484; 85025; 93005; 99282-25

== ENCOUNTER 2019-08-27 10:12 | Emergency (ER) | payer OTHER, MEDICARE ==
[2019-08-27 10:19] VITALS: BP 133/71; PULSE 88; TEMP 98.2; BMI 39.0
--- NOTE | 2019-08-27 10:38 | PDOC ---
History of Present Illness - General Chief Complaint: Ear Problem Stated Complaint: LEFT EAR MUFFLED Time Seen by Provider: 08/27/19 10:15 History Source: Patient - History of Present Illness Initial Comments: 08/27/19 10:38 Mr. Alexander is a 79 y/o man w/hx CHF, pericardiocentesis in 2011 p/w one day of L ear drainage and diminished hearing on the L. He reports calling his ENT (Dr. Monte) who scheduled him for an appointment on Thursday. He reports becoming more concerned with the ear drainage and presented hoping for ear drops. He reports multiple prior ear infections, most recently two months ago. He denies any fevers, chills, weakness, difficulty ambulating, vision changes, chest pain, sob. Past History - Past Medical History Allergies/Adverse Reactions: Allergies Allergy/AdvReac Type Severity Reaction Status Date / Time No Known Allergies Allergy Verified 08/27/19 10:14 Home Medications: Ambulatory Orders Cholecalciferol (Vitamin D3) [Vitamin D3] 2,000 unit PO DAILY tablet 04/14/17 Metformin HCl [Glucophage] 1,000 mg PO BID 11/30/17 Rosuvastatin Calcium [Crestor] 5 mg PO DAILY 11/30/17 Acetaminophen [Tylenol .Regular Strength -] 650 mg PO Q4H PRN tablet 12/03/17 Albuterol 0.083% Nebulizer Kamla [Ventolin 0.083% Nebulizer Soln -] 1 amp NEB Q4H PRN #120 amp 12/03/17 Famotidine [Pepcid -] 20 mg PO BID #60 tablet 12/03/17 Furosemide [Lasix -] 40 mg PO DAILY #30 tablet 12/03/17 predniSONE [Deltasone -] 5 mg PO ASDIR #32 tab 12/03/17 Ciprofloxacin HCl/Dexameth [Ciprodex Otic Suspension] 4 drop OT BID 7 Days #1 bottle 08/27/19 Anemia: No Asthma: Yes Cancer: No Cardiac Disorders: Yes (pericardial effusion) CVA: No COPD: Yes CHF: Yes (pleural effusion) Dementia: No Diabetes: Yes GI Disorders: No Disorders: Yes (BPH) HTN: Yes Hypercholesterolemia: No Liver Disease: No Seizures: No Thyroid Disease: No - Surgical History Abdominal Surgery: No Appendectomy: No Cardiac Surgery: Yes Cholecystectomy: No Lung Surgery: No Neurologic Surgery: No Orthopedic Surgery: No - Psycho Social/Smoking Cessation Hx Smoking History: Former smoker Have you smoked in the past 12 months: No Number of Cigarettes Smoked Daily: 1 If you are a former smoker, when did you quit?: 8YRS 'Breaking Loose' booklet given: 11/26/15 Hx Alcohol Use: No Drug/Substance Use Hx: No Substance Use Type: None Hx Substance Use Treatment: No Review of Systems - Review of Systems Able to Perform ROS?: Yes Comments:: 08/27/19 10:43 ROS: GENERAL/CONSTITUTIONAL: No fever or chills. No weakness. * HEAD, EYES, EARS, NOSE AND THROAT: Ear discharge. Diminished hearing. No change in vision. No ear pain. No sore throat. CARDIOVASCULAR: No chest pain or shortness of breath RESPIRATORY: No cough, wheezing, or hemoptysis. GASTROINTESTINAL: No nausea, vomiting, diarrhea or constipation. GENITOURINARY: No dysuria, frequency, or change in urination. MUSCULOSKELETAL: No joint or muscle swelling or pain. No neck or back pain. SKIN: No rash NEUROLOGIC: No headache, vertigo, loss of consciousness, or change in strength/ sensation. ENDOCRINE: No increased thirst. No abnormal weight change HEMATOLOGIC/LYMPHATIC: No anemia, easy bleeding, or history of blood clots. ALLERGIC/IMMUNOLOGIC: No hives or skin allergy. *Physical Exam - Physical Exam 08/27/19 10:43 PE: GENERAL: Awake, alert, and fully oriented, in no acute distress HEAD: No signs of trauma, normocephalic, atraumatic EYES: PERRLA, EOMI, sclera anicteric, conjunctiva clear ENT: Large amount of cerumen in L ear, difficult to visualize tm initially. After irrigation - erythema noted around L canal. Tm remains intact. R ear: Diminished hearing in L ear. Auricles normal inspection. Nares patent, oropharynx clear without exudates. Moist mucosa NECK: Normal ROM, supple, no lymphadenopathy, JVD, or masses LUNGS: No distress, speaks full sentences, clear to auscultation bilaterally HEART: Regular rate and rhythm, normal S1 and S2, no murmurs, rubs or gallops, peripheral pulses normal and equal bilaterally. ABDOMEN: Soft, nontender, normoactive bowel sounds. No guarding, no rebound. No masses EXTREMITIES : Normal inspection, Normal range of motion, no edema. No clubbing or cyanosis NEUROLOGICAL: Cranial nerves II through XII grossly intact. Normal speech, normal gait, no focal sensorimotor deficits SKIN: Warm, Dry, normal turgor, no rashes or lesions noted Medical Decision Making - Medical Decision Making 08/27/19 10:45 79M w/hx CHF p/w acute onset drainage from L ear, diminished L sided hearing, and erythema noted on exam c/w otitis externa. Plan: Ear irrigation Ciprodex drops Dispo: Discharge with ENT follow up Discharge - Discharge Information Problems reviewed: Yes Clinical Impression/Diagnosis: Otitis externa Qualifiers: Otitis externa type: unspecified type Chronicity: acute Laterality: left Qualified Code(s): H60.502 - Unspecified acute noninfective otitis externa, left ear Condition: Stable - Admission No - Additional Discharge Information Prescriptions: Ciprofloxacin HCl/Dexameth [Ciprodex Otic Suspension] 4 drop OT BID 7 Days #1 bottle - Follow up/Referral - Patient Discharge Instructions Patient Printed Discharge Instructions: DI for Otitis Externa Additional Instructions: You were seen in the ER for ear discharge, less hearing in the left ear. We are diagnosing you with otitis externa. Please take the ear drops we are sending the pharmacy. Apply 4 drops in the ear every 12 hours for 7 days. Please see your ENT as soon as possible, in the next 2 days. Please return to the ER if you develop high fevers, weakness, become unable to walk, have chest pain, or trouble breathing. - Post Discharge Activity
--- NOTE | 2019-08-27 10:54 | PDOC ---
Attending Attestation - Resident Resident Name: Yuri Love - ED Attending Attestation I have performed the following: I have examined & evaluated the patient, The case was reviewed & discussed with the resident, I agree w/resident's findings & plan, Exceptions are as noted - HPI HPI: 08/27/19 10:52 79 M with h/o CHF, COPD, pericardiocentesis 2011, presenting with L ear drainage. Pt states that it started this morning. he notes yellowish fluid coming from his L ear, associated with muffled hearing. Pt denies any fevers/ chills. Denies LAZAR. States that he called his ENT, who is going to see him on Thursday. However, pt wanted to come in earlier to get evaluated. - Physicial Exam PE: 08/27/19 10:53 "GENERAL: Awake, alert, and fully oriented, in no acute distress. HEAD: No signs of trauma EYES: PERRLA, EOMI, sclera anicteric, conjunctiva clear ENT: + L TM intact wnl, + erythematous canal with impacted cerumen, Auricles normal inspection, hearing grossly normal, nares patent, oropharynx clear without exudates. Moist mucosa NECK: Nontender, no stepoffs, Normal ROM, supple, no lymphadenopathy, JVD, or masses LUNGS: Breath sounds equal, clear to auscultation bilaterally. No wheezes, and no crackles HEART: Regular rate and rhythm, normal S1 and S2, no murmurs, rubs or gallops ABDOMEN: Soft, nontender, normoactive bowel sounds. No guarding, no rebound. No masses EXTREMITIES: Normal range of motion, no edema. No clubbing or cyanosis. No cords, erythema, or tenderness NEUROLOGICAL: Cranial nerves II through XII intact. 5/5 strength and sensation in all extremities, Normal speech, normal gait, normal cerebellar function SKIN: Warm, Dry, normal turgor, no rashes or lesions noted. - Medical Decision Making 08/27/19 10:54 79 M with likely otitis externa. TM appears intact without evidence of OM. - Ciprodex drops - ENT f/u Pt is well appearing, with normal vitals. Clinically stable for DC at this time. I discussed the physical exam findings, ancillary test results and final diagnoses with the patient. I answered all of the patient's questions. The patient was satisfied with the care received and felt comfortable with the discharge plan and treatment plan. The patient agrees to follow up with the primary care physician within 24-72 hours.
== END 2019-08-27 11:09 | disposition home or self-care (01) ==
LOC: FER 10:12
DX: H60.502 Unspecified acute noninfective otitis externa, left ear (principal); I50.9 Heart failure, unspecified; Z87.891 Personal history of nicotine dependence; N40.0 Benign prostatic hyperplasia without lower urinary tract symptoms; J44.9 Chronic obstructive pulmonary disease, unspecified; I10 Essential (primary) hypertension
CPT/HCPCS: 99281-25

== ENCOUNTER 2021-04-30 11:52 | Emergency (ER) | payer OTHER, MEDICARE ==
[2021-05-01 13:07] LABS: SARS-CoV-2 NAA Not Detected (Not Detected)
== END 2021-04-30 13:12 | disposition home or self-care (01) ==
LOC: JVIRT 11:52
DX: Z11.52 Encounter for screening for COVID-19 (principal)
CPT/HCPCS: C9803; Q3014-GT; U0003; U0005

== ENCOUNTER 2021-10-09 12:21 | Emergency (ER) | payer OTHER, MEDICARE ==
[2021-10-09 12:29] VITALS: BP 152/73; PULSE 89; TEMP 98; BMI 38.7
[2021-10-10 15:08] LABS: SARS-CoV-2 NAA Detected (Not Detected)
== END 2021-10-09 14:15 | disposition home or self-care (01) ==
LOC: FER 12:21
DX: U07.1 COVID-19 (principal)
CPT/HCPCS: 71046-TC-FY; 99283-25; C9803; U0003; U0005

== ENCOUNTER 2022-05-05 05:31 | Day surgery (SDC) | payer OTHER, MEDICARE ==
[2022-05-01 15:27] VITALS: BMI 38.7
[2022-05-05 09:58] VITALS: TEMP 98
[2022-05-05 11:01] VITALS: BP 118/71; PULSE 84; RESP 20
== END 2022-05-05 11:03 | disposition home or self-care (01) ==
LOC: JASU-ENDO 05:31
PROVIDERS: ATTEND Internal Medicine Gastroenterology
PROC: 0DBL8ZX Excision of Transverse Colon, Via Natural or Artificial Opening Endoscopic, Diagnostic (ICD-10-PCS; 2022-05-05)
PROC: 0DBH8ZX Excision of Cecum, Via Natural or Artificial Opening Endoscopic, Diagnostic (ICD-10-PCS; 2022-05-05)
PROC: 3E0H8GC Introduction of Other Therapeutic Substance into Lower GI, Via Natural or Artificial Opening Endoscopic (ICD-10-PCS; 2022-05-05)
PROC: 0D568ZZ Destruction of Stomach, Via Natural or Artificial Opening Endoscopic (ICD-10-PCS; 2022-05-05)
PROC: 0D578ZZ Destruction of Stomach, Pylorus, Via Natural or Artificial Opening Endoscopic (ICD-10-PCS; 2022-05-05)
PROC: 0DBP8ZX Excision of Rectum, Via Natural or Artificial Opening Endoscopic, Diagnostic (ICD-10-PCS; principal; 2022-05-05 09:00)
DX: Z12.11 Encounter for screening for malignant neoplasm of colon (principal); K62.1 Rectal polyp; D12.0 Benign neoplasm of cecum; D12.4 Benign neoplasm of descending colon; D12.5 Benign neoplasm of sigmoid colon; D12.3 Benign neoplasm of transverse colon; K29.70 Gastritis, unspecified, without bleeding; K31.A0 Gastric intestinal metaplasia, unspecified; E11.9 Type 2 diabetes mellitus without complications; I10 Essential (primary) hypertension
CPT/HCPCS: 82962; 88305-TC

== ENCOUNTER 2022-09-08 08:25 | Observation (INO) | payer OTHER, MEDICARE ==
[2022-09-08] MEDS ORDERED: METOCLOPRAMIDE HCL INJECTION 10 MG/2 ML VIAL IVPUSH ONE (09:22)
[2022-09-08] MEDS ORDERED: METOCLOPRAMIDE HCL INJECTION 10 MG/2 ML VIAL ONE (09:30)
[2022-09-08 10:07] LABS: HEMOGLOBIN 14.9 G/dL (11.7-16.9); MCH 28.4 pg (25.7-33.7); MCHC 33.1 g/dl (32.0-35.9); MEAN CELL VOLUME 85.9 fl (80-96); MEAN PLT VOLUME 7.7 fl (7.5-11.1); PLATELET COUNT 228.3 10^3/uL (134-434); RBC 5.24 10^6/uL (4.00-5.60); RDW 14.1 % (11.9-15.9); WHITE BLOOD COUNT 13.7 10^3/uL (4.0-10.8)
[2022-09-08 10:21] LABS: ALBUMIN 3.9 g/dl (3.4-5.0); BILIRUBIN,TOTAL 0.8 mg/dl (0.2-1); CREATININE 0.7 mg/dl (0.55-1.3); MAGNESIUM 1.6 mg/dL (1.8-2.4); TOT PROT 7.1 g/dl (6.4-8.2)
[2022-09-08] MEDS ORDERED: MAGNESIUM SULF 50% (8.12 MEQ/2 ML-1 GM VIAL) IVPB ONE (10:27)
[2022-09-08] MEDS ORDERED: MAGNESIUM 1GM/D5W - 1 GM/100 ML IVPB IVPB ONE (10:34)
[2022-09-08] MEDS ORDERED: ALBUTEROL SO4 2.5/IPRATROPIUM 0.5 INH SOL 3 ML VIAL.NEB. NEB ONE ×4 (10:36→10:44)
[2022-09-08 11:53] LABS: VENOUS BASE EXCESS 3.7 mmol/L (-2-2); VENOUS O2 SATURATION 87.2 % (70-80); VENOUS PCO2 56.4 mmHg (38-52); VENOUS PH 7.358 (7.310-7.410)
[2022-09-08 12:06] LABS: INR 1.09 (0.83-1.09); N-TERMINAL BNP 167.9 pg/ml (5-450); PROTHROMBIN TIME (PATIENT) 12.5 SEC (9.7-13.0)
[2022-09-08 12:09] LABS: ACTIVATED PTT 26.2 SECONDS (25.2-36.5)
[2022-09-08] MEDS ORDERED: methylPREDNISolone NA SUCC 125 MG/2 ML VIAL IVPB ONE (12:32)
[2022-09-08] MEDS ORDERED: methylPREDNISolone NA SUCC 125 MG/2 ML VIAL ONE (12:40)
[2022-09-08 13:45] LABS: EPITHELIAL CELLS FEW /hpf; URINE HYALINE CAST 0-2 /lpf
[2022-09-08] MEDS ORDERED: SIMETHICONE 80 MG TAB.CHEW (FP) PO PRN (15:41)
[2022-09-08 16:56] VITALS: BMI 38.2
[2022-09-08 20:35] VITALS: RESP 17
[2022-09-08] MEDS: ALBUTEROL SO4 2.5/IPRATROPIUM 0.5 INH SOL 3 ML VIAL.NEB. NEB SCH (21:17)
[2022-09-08] MEDS: FAMOTIDINE 20 MG TABLET PO SCH (21:17)
[2022-09-08] MEDS ORDERED: ROSUVASTATIN CA 5 MG TABLET PO SCH (22:00)
[2022-09-09 05:45] VITALS: BP 125/73; PULSE 87; TEMP 98.3
[2022-09-09] MEDS ORDERED: LEVOTHYROXINE NA 50 MCG TABLET (FP) PO SCH (07:00)
[2022-09-09 08:31] LABS: ALBUMIN 3.6 g/dl (3.4-5.0); BILIRUBIN,TOTAL 0.5 mg/dl (0.2-1); CREATININE 0.6 mg/dl (0.55-1.3); MAGNESIUM 2.2 mg/dL (1.8-2.4); PHOSPHOROUS 3.9 mg/dl (2.5-4.9)
[2022-09-09] MEDS: FAMOTIDINE 20 MG TABLET PO SCH (09:31)
[2022-09-09] MEDS: ALBUTEROL SO4 2.5/IPRATROPIUM 0.5 INH SOL 3 ML VIAL.NEB. NEB SCH ×2 (09:31→09:32)
[2022-09-09] MEDS ORDERED: PANTOPRAZOLE 40 MG TABLET PO SCH (10:00)
[2022-09-09] MEDS ORDERED: FUROSEMIDE 40 MG TABLET (FP) PO SCH (10:00)
[2022-09-09] MEDS ORDERED: FLUTICASONE/UMECLIDIN/VILANTER(100-62.5-25 TRELEGY ELLIPTA) INAHLER IH SCH (10:00)
[2022-09-09] MEDS ORDERED: ENOXAPARIN NA (PORCINE) 40 MG/0.4 ML DISP.SYRIN SQ SCH (10:00)
[2022-09-09 10:07] LABS: HEMATOCRIT 38.9 % (35.4-49); HEMOGLOBIN 12.6 GM/dL (11.7-16.9); LYMPH % 5.3 % (8-40); MCH 28.2 pg (25.7-33.7); MCHC 32.4 g/dl (32.0-35.9); MEAN CELL VOLUME 86.9 fl (80-96); MEAN PLT VOLUME 8.3 fl (7.5-11.1); NEUT % 87.7 % (42.8-82.8); PLATELET COUNT 273 10^3/uL (134-434); RBC 4.48 M/mm3 (4.00-5.60); RDW 14.3 % (11.9-15.9); WHITE BLOOD COUNT 13.5 K/mm3 (4.0-10.0)
== END 2022-09-09 12:39 | disposition home or self-care (01) ==
LOC: FER 08:25 → FM/S 12:38
PROVIDERS: ADMIT Internal Medicine
PROC: 3E0F7GC Introduction of Other Therapeutic Substance into Respiratory Tract, Via Natural or Artificial Opening (ICD-10-PCS; principal; 2022-09-08)
PROC: 3E023GC Introduction of Other Therapeutic Substance into Muscle, Percutaneous Approach (ICD-10-PCS; 2022-09-08)
PROC: 3E033GC Introduction of Other Therapeutic Substance into Peripheral Vein, Percutaneous Approach (ICD-10-PCS; 2022-09-08)
DX: R06.02 Shortness of breath (principal); R10.9 Unspecified abdominal pain; J44.1 Chronic obstructive pulmonary disease with (acute) exacerbation; R79.89 Other specified abnormal findings of blood chemistry; E66.8 Other obesity; Z68.38 Body mass index [BMI] 38.0-38.9, adult; R74.01 Elevation of levels of liver transaminase levels; G47.30 Sleep apnea, unspecified; R42 Dizziness and giddiness; I13.0 Hypertensive heart and chronic kidney disease with heart failure and stage 1 through stage 4 chronic kidney disease, or unspecified chronic kidney disease; I50.9 Heart failure, unspecified; N18.9 Chronic kidney disease, unspecified; K21.9 Gastro-esophageal reflux disease without esophagitis; J44.9 Chronic obstructive pulmonary disease, unspecified; K75.81 Nonalcoholic steatohepatitis (NASH)
CPT/HCPCS: 0241U-QW; 36415; 70450-TC; 71045-TC-FY; 76705-TC; 80053; 81003; 81015; 82803; 83735; 83880; 84100; 84484; 85025; 85027; 85610; 85730; 93005; 94640; 96372; 96375; 99285-25; G0378

== ENCOUNTER 2023-01-18 16:41 | Emergency (ER) | payer OTHER, MEDICARE ==
[2023-01-18 17:21] VITALS: BP 136/70; PULSE 95; RESP 20; TEMP 98.7; BMI 36.4
== END 2023-01-18 18:24 | disposition home or self-care (01) ==
LOC: FER 16:41
PROC: 2W39X1Z Immobilization of Left Upper Extremity using Splint (ICD-10-PCS; principal; 2023-01-18)
DX: S52.502A Unspecified fracture of the lower end of left radius, initial encounter for closed fracture (principal); S52.602A Unspecified fracture of lower end of left ulna, initial encounter for closed fracture; W01.0XXA Fall on same level from slipping, tripping and stumbling without subsequent striking against object, initial encounter
CPT/HCPCS: 73030-TC-LT-FY; 73070-TC-LT-FY; 73090-TC-LT-FY; 73110-TC-LT-FY; 73130-TC-LT-FY; 99285-25

== ENCOUNTER 2024-07-29 11:57 | Emergency (ER) | payer OTHER, MEDICARE ==
[2024-07-29 12:23] VITALS: BP 171/89; PULSE 94; RESP 20; TEMP 97.4; BMI 36.8
[2024-07-29 15:01] LABS: BASO % 0.7 % (0-2.0); HEMATOCRIT 40.1 % (35.4-49); HEMOGLOBIN 13.3 GM/dL (11.7-16.9); LYMPH % 19.9 % (8-40); MCH 28.8 pg (25.7-33.7); MCHC 33.1 g/dl (32.0-35.9); MEAN CELL VOLUME 86.8 fl (80-96); MEAN PLT VOLUME 8.2 fl (7.5-11.1); MONO % 9.2 % (3.8-10.2); NEUT % 69.2 % (42.8-82.8); PLATELET COUNT 300 10^3/uL (134-434); RBC 4.61 M/mm3 (4.00-5.60); RDW 13.9 % (11.9-15.9); WHITE BLOOD COUNT 10.4 K/mm3 (4.0-10.0)
[2024-07-29 15:05] LABS: INR 0.95 (0.83-1.09); PROTHROMBIN TIME (PATIENT) 10.9 SEC (9.7-13.0)
[2024-07-29 15:08] LABS: ACTIVATED PTT 28.6 SECONDS (25.2-36.5)
[2024-07-29 15:25] LABS: EPI CELLS 16 /uL (0-25.1); HYALINE CASTS 0 /uL (0-3.1); URINE APPEARANCE CLOUDY; URINE BACTERIA 28 /uL (0-1359); URINE BILIRUBIN NEGATIVE (NEGATIVE); URINE COLOR ORANGE; URINE GLUCOSE (UA) NEGATIVE (NEGATIVE); URINE KETONE NEGATIVE (NEGATIVE); URINE LEUK ESTERASE 1+ (NEGATIVE); URINE NITRITE NEGATIVE (NEGATIVE); URINE PROTEIN 1+ (NEGATIVE); URINE RBC 21175 /uL (0-23.9); URINE WBC 68 /uL (0-25.8)
[2024-07-29 15:50] LABS: POTASSIUM 4.7 mmol/L (3.5-5.1)
[2024-07-29 15:52] LABS: CALCIUM 9.6 mg/dL (8.5-10.1)
[2024-07-29 15:53] LABS: BLOOD UREA NITROGEN 22.3 mg/dL (7-18)
[2024-07-29 15:57] LABS: BILIRUBIN,TOTAL 0.3 mg/dL (0.2-1); TOT PROT 7.6 g/dl (6.4-8.2)
== END 2024-07-29 22:28 | disposition home or self-care (01) ==
LOC: JER 11:57
DX: N32.9 Bladder disorder, unspecified (principal); R31.9 Hematuria, unspecified; N28.1 Cyst of kidney, acquired; Z20.822 Contact with and (suspected) exposure to COVID-19
CPT/HCPCS: 0241U-QW; 36415; 74177-TC; 80053; 81003; 85025; 85610; 85730; 86850; 86900; 86901; 87086; 99285-25; Q9967

== ENCOUNTER 2024-08-09 03:48 | Day surgery (SDC) | payer OTHER, MEDICARE ==
[2024-08-08 09:31] VITALS: BMI 38.0
[2024-08-09] MEDS ORDERED: PROPOFOL 20 ML ONE (07:23)
[2024-08-09] MEDS: ceFAZolin SODIUM 1 GM VIAL IVPB ONE (07:48)
[2024-08-09] MEDS ORDERED: DEXAMETHASONE SOD PHOSPHATE 4 MG/1 ML VIAL ONE (08:13)
[2024-08-09] MEDS ORDERED: ceFAZolin SODIUM 1 GM VIAL ONE (08:13)
[2024-08-09] MEDS ORDERED: ONDANSETRON 4 MG/2 ML VIAL ONE (08:13)
[2024-08-09] MEDS ORDERED: oxyCODONE HCL 5 MG TABLET PO PRN ×2 (08:23→08:24)
[2024-08-09] MEDS ORDERED: ONDANSETRON 4 MG/2 ML VIAL IVPUSH PRN (08:24)
[2024-08-09] MEDS ORDERED: ELECTROLYTE-148 SOLN 1,000 ML IV SCH (08:30)
[2024-08-09] MEDS ORDERED: LACTATED RINGERS SOLUTION 1,000 ML IV SCH (08:30)
[2024-08-09] MEDS: ALBUTEROL SO4 0.083% IH SOL 2.5 MG/3 ML VIAL.NEB. NEB ONE (10:15)
[2024-08-09 12:08] VITALS: RESP 16
[2024-08-09 14:23] VITALS: BP 164/73; PULSE 100; TEMP 97.8
== END 2024-08-09 13:00 | disposition home or self-care (01) ==
LOC: JASU-SURG 03:48
PROVIDERS: ATTEND Urology
PROC: 0TBB8ZZ Excision of Bladder, Via Natural or Artificial Opening Endoscopic (ICD-10-PCS; principal; 2024-08-09 07:30)
DX: C67.9 Malignant neoplasm of bladder, unspecified (principal)
CPT/HCPCS: 82962; 88307-TC; 94760

== ENCOUNTER 2024-12-01 07:02 | Day surgery (SDC) | payer OTHER, MEDICARE ==
[2024-11-29 13:46] VITALS: BMI 37.1
[2024-12-01] MEDS ORDERED: PROPOFOL 40 ML ONE (07:08)
[2024-12-01 07:32] VITALS: RESP 18
[2024-12-01 09:25] VITALS: TEMP 97.9
[2024-12-01 09:26] VITALS: BP 131/88; PULSE 94
== END 2024-12-01 09:15 | disposition home or self-care (01) ==
LOC: FASU-ENDO 07:02
PROVIDERS: ATTEND Internal Medicine Gastroenterology
PROC: 0DBP8ZX Excision of Rectum, Via Natural or Artificial Opening Endoscopic, Diagnostic (ICD-10-PCS; 2024-12-01)
PROC: 0DBQ8ZX Excision of Anus, Via Natural or Artificial Opening Endoscopic, Diagnostic (ICD-10-PCS; principal; 2024-12-01 08:10)
DX: K62.5 Hemorrhage of anus and rectum (principal); D12.8 Benign neoplasm of rectum; R85.610 Atypical squamous cells of undetermined significance on cytologic smear of anus (ASC-US)
CPT/HCPCS: 82962; 88305-TC; 88341-TC; 88342-TC